=== PATIENT | female | born 1935 | race Caucasian/White ===

== ENCOUNTER 2017-12-17 03:11 | Inpatient (IN) | payer MEDICARE, OTHER ==
[~2017-12-17] VITALS: Ht 139.7 cm; Wt 47.2 kg
[~2017-12-17 03:11] MED LIST: ASPIRIN EC325 M1 PO; BENTYL 10 MG CA10 MG; CALCIUM 500 +1 EAC5 PO; CENTRUM ADULTS1 EACH PO; ERYTHROCIN STE250 MG; HYDROCODONE-APA1 TA1 PO; LASIX 40 MG TAB40 M2 PO; LISINOPRIL10 MG; SYNTHROID25 MCG; VICODIN 5-5001 EACH PO
[2017-12-17 03:13] VITALS: BP 155/41
[2017-12-17 04:22] LABS: HEMATOCRIT 33.9 % (37.0-47.0); HEMOGLOBIN 11.3 gm/dL (12.0-15.0); MCH 31.3 pg (26.0-34.0); MCHC 33.3 g/dL (28.0-37.0); MCV 94.1 fL (80.0-100.0); MPV 8.6 fl. (7.2-11.1); NUCLEATED RBCS 0 /100WBC; PLATELET COUNT* 203 thou/uL (150-400); RDW-CV 13.8 % (10.5-14.5); WBC 12.6 thou/uL (4.0-11.0)
[2017-12-17 04:32] LABS: CALCIUM 8.6 mg/dL (8.5-10.1); CREATININE 0.7 mg/dL (0.6-1.3)
[2017-12-17 04:36] LABS: ALBUMIN 2.8 g/dL (3.4-5.0); TOTAL BILIRUBIN 0.2 mg/dL (<0.1-1.0); TOTAL PROTEIN 5.7 g/dL (6.4-8.2)
[2017-12-17 04:37] LABS: POTASSIUM 2.3 mmol/L (3.5-5.1)
[2017-12-17 05:36] LABS: URINE BILIRUBIN NEGATIVE (Negative); URINE BLOOD TRACE (Negative); URINE CLARITY SL CLOUDY; URINE COLOR YELLOW; URINE GLUCOSE-RANDOM NEGATIVE (Negative); URINE KETONES NEGATIVE (Negative); URINE LEUKOCYTES-REFLEX NEGATIVE (Negative); URINE NITRITE-REFLEX NEGATIVE (Negative); URINE PROTEIN 2+ (Negative); URINE SPECIFIC GRAVITY 1.025 (1.005-1.030); URINE UROBILINOGEN 0.2 E.U./dl (0.2-1.0)
[2017-12-17 05:57] VITALS: BP 139/44
[2017-12-17 06:03] LABS: ABSOLUTE LYMPHOCYTES 0.4 thou/uL (0.8-5.3); ABSOLUTE MONOCYTES 0.5 thou/uL (0.0-1.2); ABSOLUTE NEUTROPHILS 11.7 thou/uL (1.6-8.1); PLATELET ESTIMATE ADEQUATE
[2017-12-17 06:15] LABS: BACTERIA-REFLEX >30 Many /HPF (None Seen); SQUAMOUS 4-10 Moderate /LPF (0-3); URINE RBC 3-10 Few /HPF (0-2); URINE WBC-REFLEX 6-15 Few /HPF (0-5)
[2017-12-17 06:16] LABS: CASTS None Seen /LPF (None Seen); CRYSTALS None Seen /LPF (None Seen); MUCUS None Seen strn/LPF (None Seen)
[2017-12-17 07:54] VITALS: BP 140/49
--- NOTE | 2017-12-17 08:33 | NUR ---
VSS, ASSUMED CARE IN THE AM, ASSESSMENT PERFORMED AND CHARTED FALL PRECAUTIONS IN PLACE AND CALL LIGHT IN REACH, PT IS UP WITH ONE AND WALKER STATES PAIN IN LOWER BACK, IS TRACING SR C BB ON THE MONITOR, A&O4, ON RA AND HER GOAL IS TO IMPROVE K LABS, WILL FOLLOW WITH PLAN OF CARE.
[2017-12-17 12:00] VITALS: BP 134/48
--- NOTE | 2017-12-17 13:08 | EKG ---
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1935 Requested By: Adrián Paredes Order Number: [id number] MD: [place] Edmondson Measurements Intervals [place] Rate: 79 P: 119 CA: 261 QRS: -60 QRSD: 173 T: 117 QT: 429 QTc: 492 Interpretive Statements Sinus rhythm Prolonged CA interval Consider left atrial enlargement Left bundle branch block Compared to ECG 09/30/2008 18:18:55 Left bundle-branch block now present Electronically Signed On 12-17-2017 13:08:12 DISH CARRIER by [place] Edmondson [email or web address] <ELECTRONICALLY SIGNED> By: [place] Edmondson MD, FAC 12/17/17 1308 0321 0321 [place] Edmondson MD, [facility] /EPI
[2017-12-17 14:00] VITALS: BP 131/47
--- NOTE | 2017-12-17 14:06 | 2DMMODE ---
[place] [address] 2 D/M-MODE ECHOCARDIOGRAM Name: YONATHAN MENDEZ Room: [address] ADM IN [facility]#: [id number] Admission: 12/17/17 Attend Phys: Adrián Paredes Discharge: Date of : 33 Date of Service: 12/17/17 1406 Report #: [id number] THIS REPORT FOR: //name// APPROVED REPORT Study performed: 12/17/2017 10:53:10 EXAM: Comprehensive 2D, Doppler, and color-flow Echocardiogram Patient Location: In-Patient Room #: 220 Status: routine BSA: 1.28 HR: 75 bpm BP: 140/49 mmHg Rhythm: NSR Other Information Study Quality: Good Indications Arrhythmia Syncope 2D Dimensions LVEF(%): 32.42 (>50%) IVSd: 11.10 (7-11mm) LVOT Diam: 19.37 (18-24mm) LVDd: 49.87 mm PWd: 9.98 (7-11mm) Ascending Ao: 33.52 (22-36mm) LVDs: 42.19 (25-40mm) Aortic Root: 31.30 mm Villela's LVEF: 32.42 % Volumes Left Atrial Volume (Systole) LA ESV Index: 57.10 mL/m2 Aortic Valve AoV Peak Ernesto.: 1.83 m/s AO Peak Gr.: 13.40 mmHg LVOT Max P.04 mmHg AO Mean Gr.: 6.67 mmHg LVOT Mean P.02 mmHg LVOT Max V: 1.12 m/s AO V2 VTI: 33.98 cm LVOT Mean V: 0.63 m/s RICHA (VTI): 1.85 cm2 LVOT V1 VTI: 21.30 cm AI Taliaferro: 2.52 m/s2 AI PHT: 315.78 [place] [address] 2 D/M-MODE ECHOCARDIOGRAM Name: YONATHAN MENDEZ Room: [address] IN .R.#: [id number] Admission: 12/17/17 Attend Phys: Adrián Paredes Discharge: Date of : 33 Date of Service: 12/17/17 1406 Report #: [id number] Mitral Valve E/A Ratio: 0.74 MV Decel. Time: 141.49 ms MV E Max Ernesto.: 1.01 m/s MV PHT: 41.03 ms MVA (PHT): 5.36 cm2 TDI E/Lateral E': 11.22 Lateral E' Ernesto.: 0.09 m/s Pulmonary Valve PV Peak Ernesto.: 0.86 m/s PV Peak Gr.: 2.99 mmHg Tricuspid Valve TR Peak Gr.: 22.03 mmHg RVSP: 27.00 mmHg Left Ventricle The left ventricle is normal size. There is global hypokinesis of the left ventricle. There is normal left ventricular wall thickness. Left ventricular systolic function is moderately decreased. LVEF is 25-30%. Grade I - abnormal relaxation pattern. Right Ventricle The right ventricle is normal size. The right ventricular systolic function is normal. Atria Left atrium is severely dilated. The right atrium size is normal. Aortic Valve Mild aortic valve sclerosis. Moderate aortic regurgitation. Mild aortic stenosis. Mitral Valve The mitral valve is normal in structure. Trace mitral regurgitation. No evidence of mitral valve stenosis. Tricuspid Valve The tricuspid valve is normal in structure. Trace tricuspid regurgitation. The RVSP is ____27___ mmHg. Pulmonic Valve The pulmonary valve is normal in structure. [place] [address] 2 D/M-MODE ECHOCARDIOGRAM Name: YONATHAN MENDEZ Room: [address] IN [facility]#: [id number] Admission: 12/17/17 Attend Phys: Adrián Paredes Discharge: Date of : 34 Date of Service: 12/17/17 1406 Report #: [id number] regurgitation. Great Vessels The aortic root is normal in size. IVC is normal in size and collapses with >50% inspiration Pericardium There is no pericardial effusion. <Conclusion> LVEF is 25-30%. Left atrium is severely dilated. Moderate aortic regurgitation. Mild aortic valve sclerosis. <ELECTRONICALLY SIGNED> By: [place] Edmondson MD, FACC 12/17/171405 05 05 [place] Edmondson MD, FACC /INF
--- NOTE | 2017-12-17 14:20 | NUR ---
CM ASSESSMENT: Pt is A&O. Resides at home. Independent with ADLs. Has a walker at home that she can use if needed. Supportive family that is invovled in POC. Hx of HH. No Hx of SNF. Goal is to return home once medically stable for dc. Anticipate dc tomorrow. Following
[2017-12-17 19:50] VITALS: BP 132/44
--- NOTE | 2017-12-17 20:00 | NUR ---
VSS, PT LABS IMPROVED, NO OTHER STATUS CHANGE , HOURLY ROUNDS COMPLETED.
[2017-12-18] VITALS (8 sets, daily range): BP systolic 133–172; BP diastolic 43–76
--- NOTE | 2017-12-18 05:23 | NUR ---
A&O X4 CALM COOPERITVE. PT IS X1 ASSIST. 1ST BBB SR ON THE MONITOR. FLUIDS STOPED AT 0200. PT ON RA. DENIES PAIN. VITALS WNL. FALL PRECAUTIONS IN PLACE. HOURLY ROUNDING FOR SAFETY.
[2017-12-18 05:33] LABS: HEMATOCRIT 30.6 % (37.0-47.0); HEMOGLOBIN 10.2 gm/dL (12.0-15.0); MCH 31.7 pg (26.0-34.0); MCHC 33.4 g/dL (28.0-37.0); MCV 94.9 fL (80.0-100.0); MPV 8.7 fl. (7.2-11.1); RBC 3.22 mil/uL (4.20-5.00); RDW-CV 13.9 % (10.5-14.5)
[2017-12-18 05:50] LABS: CREATININE 0.7 mg/dL (0.6-1.3); MAGNESIUM 1.4 mg/dL (1.8-2.4); POTASSIUM 3.5 mmol/L (3.5-5.1)
--- NOTE | 2017-12-18 12:07 | NUR ---
VSS, AUUMED CARE IN THE AM, ASSESSMENT PERFROMED AND CHARTED, FALL PRECAUTIONS IN PLACE AND CALL LIGHT IN REACH, PT IS TRACING SR ON THE MONITOR AND UP WITH STAND BY ASSIST, PT IS ON RA AND HAS PAIN IN HER RIGHT ARM, 4 OUT OF 0-10, PT IS A&O4 AND HER GOAL IS TO WALK IN [place] AND SIT UP IN CHAIR.
--- NOTE | 2017-12-18 18:48 | NUR ---
VSS, PT IS PROGRESSING TOWARDS GOAL, PT IS UP WITH STAND BY ASSIST, ON RA AND TRACING SR ON THE MONITOR, DENIES ANY PAIN AT THIS TIME, IS TO BE NPO AT 2400 AND FOR STRSS TEST, NO OTHER STATUS CHANGE AT THIS TIME, HOURLY ROUNDS COMPLETED.
[2017-12-19] VITALS (8 sets, daily range): BP systolic 137–171; BP diastolic 48–87
[2017-12-19 05:58] LABS: CALCIUM 8.9 mg/dL (8.5-10.1); CREATININE 0.6 mg/dL (0.6-1.3); POTASSIUM 3.6 mmol/L (3.5-5.1)
--- NOTE | 2017-12-19 06:54 | NUR ---
A&O X4 CALM COOPERITVE. STANDBY/STANDBY ASSIST. 1ST BBB SR ON THE MONITOR. RA. VITALS WNL. FALL PRECAUTIONS IN PLACE. HOURLY ROUNDING FOR SAFETY.
--- NOTE | 2017-12-19 09:00 | NUR ---
VSS, ASSUMED CARE IN THE AM, ASSESSMENT PERFORMED AND CHARETED, FALL PRECAUTIONS IN PLACE AND CALL LIGHT IN REACH, PT IS TRACING SR ON THE MONITOR IS NPO FOR STRESS TEST, UP WITH STAND BY AND ON RA, DENIES ANY PAIN AND HER GOAL IS TO COMPLETE STRESS TEST AND SIT UP IN CHAIR, WILL FOLLOW WITH PLAN OF CARE.
[2017-12-19] MEDS ORDERED: COREG6.25 MG PO (16:03)
[2017-12-19] MEDS ORDERED: ALDACTONE25 MG PO (16:04)
--- NOTE | 2017-12-19 16:39 | CARDNUC ---
[place] [address] CARDIAC NUCLEAR IMAGING REPORT Name: YONATHAN MENDEZ Room: [address] IN [facility]#: [id number] Admission: 12/17/17 Attend Phys: Adrián Paredes Discharge: Date of : 33 Date of Service: 12/19/17 1639 Report #: [id number] THIS REPORT FOR: //name// APPROVED REPORT Exam: Nuclear Stress Test Indication: near syncope Patient Location: In-Patient Room #: 220 Stress Tech: Fiordaliza Tubbs Stress Nurse: ZACK Mixon Tech:TORI Castor Ht: 4 ft 7 in Wt: 95 lbs BSA: 1.28 m2 BMI: 22.0 Medical History Medical History: hyperlipidemia,hypertension,pvd Medications: carvedilol,kcl, lasix, lisinopril, spironolactone Allergies: ertapenem Cardiac Risk Factors: age, hyperlipidemia,hypertension, pvd, smoker Exercise History: Sedentary Meds Held (24 hrs): carvedilol NM EXAM: Myocardial Perfusion REST/STRESS Imaging Protocol: Rest Tc-99m/Stress Tc-99m 1 day Resting Data Rest SPECT myocardial perfusion imaging was performed in supine position 45 minutes following the intravenous injection of 11.9 mCi of Tc-99m Sestamibi. Time of rest injection: 1145 Date: 12/19/2017 The images were gated to evaluate regional wall motion and calculate left ventricular ejection fraction. Administration Route: IV Administration Site: Left AC Pharmacologic Stress Pharmacologic stress test was performed by injecting Regadenoson 0.4 mg IV push followed by the intravenous injection of 32.6 mCi of Tc-99m Sestamibi. Time of stress injection: 1345 Date: 12/19/2017 Administration Route: [place] [address] CARDIAC NUCLEAR IMAGING REPORT Name: YONATHAN MENDEZ Room: [address] IN ..#: [id number] Admission: 12/17/17 Attend Phys: Adrián Paredes Discharge: Date of : 34 Date of Service: 12/19/17 1639 Report #: [id number] Administration Site: Left AC Gated Stress SPECT was performed 45 minutes after stress injection. The images were gated to evaluate regional wall motion and calculate left ventricular ejection fraction. Stress only was performed in the Supine position. Study Quality Study: Fair Artifact: Mild Increased GI uptake Study Data At rest, the left ventricular ejection fraction was 25%.. Post stress, the left ventricular ejection was 28%.. SSS: 15 SRS: 11 SDS: 4 TID = 0.95. Perfusion There are moderate sized fixed apical and inferior defects compatible with prior ID. Only some reversibility inferior. LV is dilated. Wall Motion global hypokinesis Nuclear Conclusion ECG Findings: non-diagnostic Clinical Findings: negative for ischemia Nuclear Findings: positive for ischemia Exercise Capacity: not assessed Left Ventricular Function: abnormal Risk Study: high Evidence of prior ID and LV dysfunction. Interpreted by: MM Electronically Approved: MM Stress Test Details Stress Test: Pharmacologic stress testing performed using 0.4 mg of regadenoson per 5 mL given IV over 10 seconds. Reason for pharmacologic stress test: physical limitation. HR Resting HR: 83 bpm Max Heart Rate (APMHR): 137 bpm Max HR Achieved: 98 bpm Target HR (85% APMHR): 116 [place] [address] CARDIAC NUCLEAR IMAGING REPORT Name: YONATHAN MENDEZ Room: [address]#: [id number] Admission: 12/17/17 Attend Phys: Adrián Paredes Discharge: Date of : 33 Date of Service: 12/19/17 1639 Report #: [id number] % of APMHR: 71 Recovery HR: 102 bpm HR response to stress: Normal HR response to stress BP Resting BP: 155/80 mmHg Max BP: 152/70 mmHg BP response to stress: Normal blood pressure response to stress. ECG Resting ECG: Sinus Rhythm, LBBB Stress ECG: Clear Recovery ECG: Sinus Rhythm Recovery ST Change: None Clinical Reason for Termination: Completed protocol Stress Symptoms: Nausea Exercise duration: 0 min sec Exercise capacity: 1 METs Functional Aerobic Impairment 72% Nurse Comments pt has heart murmer, okay to do sitting dolly per Dr. Edmondson. Pt became very nauseated and crawford after injection of lexiscan. 2 min after injection of isotope, aminophylline 50 mg was injected. pt reported feeling better and was able to dring caffeine and eat snack Stress ECG Conclusion nondiagnostic <Conclusion> nondiagnostic <ELECTRONICALLY SIGNED> By: Messi Landin MD, FACC 12/19/17 1639 1639 1639 Messi Landin MD, FACC /INF
--- NOTE | 2017-12-19 17:16 | NUR ---
VSS, PT IS PROGRESSING TOWARDS GOAL, PT COMPLETED STRESS TEST, IS ON RA AND UP WITH STAND BY AND TRACING SR ON THE MONITOR, HOURLY ROUNDS COMPLETED, WILL FOLLOW WITH PLAN OF CARE. PT GOAL IS TO D/C TO HOME.
[2017-12-20 00:31] VITALS: BP 141/52
[2017-12-20 04:28] VITALS: BP 142/42
--- NOTE | 2017-12-20 04:54 | NUR ---
ASSUMED CARE OF PATIENT AT 1900 THE PATIENT REMAINS SR C 1ST DEG AV AND BBB ON THE MONITOR O2 SAT MAINTAINED ON RA CONTINUES TO BE UP WITH BATHROOM PRIVALGES DAUGHTER AT BEDSIDE DURING THE NIGHT THE ROUTINE REGIMEN CONTINUES TO BE EFFECTIVE FOR SX MANAGEMENT SAFETY INTERVENTIONS CONTINUE BED LOWERED WHEELS LOCKED CALL LIGHT IN REACH SIDE RAILS UP REPORT TO BE GIVEN TO ONCOMING [facility]
[2017-12-20 08:00] VITALS: BP 139/63
[2017-12-20] MEDS ORDERED: SYNTHROID25 MCG PO (08:09)
[2017-12-20] MEDS ORDERED: LISINOPRIL10 MG PO (08:10)
[2017-12-20] MEDS ORDERED: COREG6.25 MG PO (08:10)
[2017-12-20] MEDS ORDERED: ALDACTONE25 MG PO (08:10)
--- NOTE | 2017-12-20 10:21 | NUR ---
ASSUMED PT CARE AT 0730, FULL ASSESMENT DONE CHARTED. PT A/O X4, UP TO [facility] FOR BREAKFAST, HOPING TO GO HOME TODAY. PTS DAUGHTER AT BEDSIDE. VSS, SR/BBB/1ST AVB ON THE MONITOR. FALL PRECATUIONS IN PLACE, PT USES CALL LIGTH APPROPRIATLY. WILL CONTINUE TO MONITOR.
[2017-12-20 12:46] VITALS: BP 110/56
== END 2017-12-20 13:45 | disposition home or self-care (01) | DRG 306 ==
LOC: M.ERS 03:11 → M.TBA-ER 05:13 → M.2W 05:13
PROVIDERS: Internal Medicine; Nurse Practitioner Family; Personal Emergency Response Attendant; ADMIT Internal Medicine
PROC: B24BZZ4 Ultrasonography of Heart with Aorta, Transesophageal (ICD-10-PCS; principal; 2017-12-17)
DX: I35.1 Nonrheumatic aortic (valve) insufficiency (principal); E43 Unspecified severe protein-calorie malnutrition; I50.22 Chronic systolic (congestive) heart failure; I42.9 Cardiomyopathy, unspecified; M81.0 Age-related osteoporosis without current pathological fracture; I73.9 Peripheral vascular disease, unspecified; E03.9 Hypothyroidism, unspecified; K52.9 Noninfective gastroenteritis and colitis, unspecified; M47.9 Spondylosis, unspecified; I65.29 Occlusion and stenosis of unspecified carotid artery; I11.0 Hypertensive heart disease with heart failure; E78.5 Hyperlipidemia, unspecified; E87.6 Hypokalemia; F17.210 Nicotine dependence, cigarettes, uncomplicated; Z98.1 Arthrodesis status; Z95.820 Peripheral vascular angioplasty status with implants and grafts; Z79.82 Long term (current) use of aspirin; Z79.899 Other long term (current) drug therapy; Z88.8 Allergy status to other drugs, medicaments and biological substances

== ENCOUNTER 2018-01-27 20:17 | Inpatient (IN) | payer MEDICARE, OTHER ==
[~2018-01-27] VITALS: Ht 139.7 cm; Wt 39.9 kg
--- NOTE | ~2018-01-27 | PROC ---
[address] [address] PROCEDURE REPORT Name: YONATHAN MENDEZ Room: [address] ADM IN M.R.#: [id number] Admission: 01/27/18 Attend Phys: Omer Amaro Discharge: Date of : 34 Report #: [id number] THIS REPORT FOR: //name// For GI report, please see the Provation report in Perceptive 7 content. By: 0644Medical Records Staff ELIE /RADHA
[~2018-01-27 20:17] MED LIST changes: +ALDACTONE25 MG PO; +COREG6.25 MG PO; +LISINOPRIL10 MG PO; +SYNTHROID25 MCG PO
[2018-01-27 20:28] VITALS: BP 120/51
[2018-01-27 21:03] LABS: ABSOLUTE BASOPHILS 0.1 thou/uL (0.0-0.2); ABSOLUTE EOSINOPHILS 0.1 thou/uL (0.0-0.7); ABSOLUTE LYMPHOCYTES 1.7 thou/uL (0.8-5.3); ABSOLUTE MONOCYTES 0.7 thou/uL (0.0-1.2); ABSOLUTE NEUTROPHILS 8.1 thou/uL (1.6-8.1); BASOPHILS 0.8 %; HEMATOCRIT 40.3 % (37.0-47.0); HEMOGLOBIN 13.4 gm/dL (12.0-15.0); LYMPHOCYTES 15.8 %; MCH 31.7 pg (26.0-34.0); MCHC 33.2 g/dL (28.0-37.0); MCV 95.6 fL (80.0-100.0); MONOCYTES 6.3 %; MPV 8.3 fl. (7.2-11.1); NUCLEATED RBCS 0 /100WBC; PLATELET COUNT* 231 thou/uL (150-400); POLYS 76.1 %; RBC 4.22 mil/uL (4.20-5.00); RDW-CV 15.7 % (10.5-14.5); WBC 10.6 thou/uL (4.0-11.0)
[2018-01-27] MEDS ORDERED: LISINOPRIL20 MG PO (21:05)
[2018-01-27 21:11] LABS: CALCIUM 9.2 mg/dL (8.5-10.1); CREATININE 1.5 mg/dL (0.6-1.3); POTASSIUM 4.9 mmol/L (3.5-5.1)
[2018-01-27 21:15] LABS: ALBUMIN 3.6 g/dL (3.4-5.0); TOTAL BILIRUBIN 0.3 mg/dL (<0.1-1.0); TOTAL PROTEIN 6.6 g/dL (6.4-8.2)
[2018-01-27 21:30] LABS: URINE BILIRUBIN NEGATIVE (Negative); URINE BLOOD 1+ (Negative); URINE CLARITY CLEAR; URINE COLOR YELLOW; URINE GLUCOSE-RANDOM NEGATIVE (Negative); URINE KETONES NEGATIVE (Negative); URINE LEUKOCYTES-REFLEX NEGATIVE (Negative); URINE NITRITE-REFLEX NEGATIVE (Negative); URINE PROTEIN NEGATIVE (Negative); URINE SPECIFIC GRAVITY 1.025 (1.005-1.030); URINE UROBILINOGEN 0.2 E.U./dl (0.2-1.0)
[2018-01-27 21:41] LABS: BACTERIA-REFLEX None Seen /HPF (None Seen); CASTS None Seen /LPF (None Seen); CRYSTALS None Seen /LPF (None Seen); MUCUS 0-3 Light strn/LPF (None Seen); SQUAMOUS 0-3 Few /LPF (0-3); URINE RBC 0-2 Rare /HPF (0-2); URINE WBC-REFLEX None Seen /HPF (0-5)
[2018-01-28 00:08] VITALS: BP 124/48
[2018-01-28 00:16] VITALS: BP 132/54
--- NOTE | 2018-01-28 01:24 | NUR ---
ALERT AND ORIENTED X 4 FEMALE PATIENT TO ROOM 113 BY CART FROM ER ACCOMPANIED BY DAUGHTER ADRYAN IN STABLE CONDITION. ADMISSION ROUTINES IN PROGRESS. NPO STATUS EDUCATION. MOUTH SWABS AND LIP BALM PROVIDED. CONTINUE TO MONITOR.
[2018-01-28] MEDS ORDERED: ANACIN 400-321 EACH PO (01:37)
[2018-01-28] MEDS ORDERED: LASIX 20 MG TAB20 MG PO (01:39)
[2018-01-28] MEDS ORDERED: PRESERVISION A1 EAC2 PO (01:40)
[2018-01-28] MEDS ORDERED: B12 INJECTION (01:41)
--- NOTE | 2018-01-28 04:57 | NUR ---
PATIENT HAS REMAINED ALERT AND ORIENTED X 4 THROUGHOUT THE NIGHT AND RESTING QUIETLY ON HOURLY ROUNDS. HAS DENIED PAIN OR NAUSEA. IVF'S AND NPO PER ORDERS. AMBULATED TO BR WITH CGA. CONTINUE TO MONITOR.
--- NOTE | 2018-01-28 08:00 | NUR ---
PER PATIENT MAY RESUME HOME MEDS ONCE CONSULTS HAVE CLEARED PATIENT TO HAVE CLEAR LIQUIDS.
[2018-01-28 08:38] VITALS: BP 124/64
[2018-01-28 16:39] VITALS: BP 129/48
--- NOTE | 2018-01-28 17:14 | NUR ---
PATIENT REMAINS ALERT AND ORIENTED. DENIES PAIN. IVF INFUSING ORDERED. REMAINS NPO. JUST SPOKE WITH DR. CARMICHAEL AND - PATIENT MAY HAVE MEDS WITH SIPS OF H20. AMBULATES WITH STANDBY ASSIST. ORAL SWABS PROVIDED. FAMILY AT BEDSIDE. WILL CONTINUE TO MONITOR.
--- NOTE | 2018-01-28 17:56 | NUR ---
PT.WAS ALERT AND ORIENTED. STATED SHE LIVES ALONE AND IS INDEPENDENT.HAS A WALKER BUT DOESN'T HAVE TO USE. PLANS TO RETURN HOME AT DISCHARGE. FAMILY IS SUPPORTIVE. NO RECENT HX OF HH OR SNF. CM WILL FOLLOW.
--- NOTE | 2018-01-28 17:56 | EKG ---
[place] [address] ELECTROCARDIOGRAM REPORT Name: YONATHAN MENDEZ Room: [address] ADM IN M.R.#: [id number] Admission: 01/27/18 Attend Phys: Omer Amaro Discharge: Date of : 34 Report #: [id number] THIS REPORT FOR: //name// 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: [facility] : 1935 Requested By: Geovanna Love Order Number: [id number] MD: Ector Brown Measurements Intervals [place] Rate: 65 P: 0 MO: 256 QRS: -64 QRSD: 150 T: 114 QT: 462 QTc: 481 Interpretive Statements Sinus rhythm Prolonged [place] interval Probable left atrial enlargement Left bundle branch block Compared to ECG 12/17/2017 03:21:54 No significant changes Electronically Signed On 01-28-2018 17:56:00 CDT by Ector Brown [email or web address] <ELECTRONICALLY SIGNED> By: Ector Brown MD, [facility] 01/28/18 1756 51 51 Ector Brown MD, [facility] /EPI
[2018-01-28 18:52] LABS: ALBUMIN 2.8 g/dL (3.4-5.0); CALCIUM 7.6 mg/dL (8.5-10.1); CREATININE 0.9 mg/dL (0.6-1.3); POTASSIUM 4.9 mmol/L (3.5-5.1); TOTAL BILIRUBIN 0.4 mg/dL (<0.1-1.0); TOTAL PROTEIN 5.5 g/dL (6.4-8.2)
[2018-01-28 19:50] VITALS: BP 142/46
[2018-01-29 00:59] VITALS: BP 142/46
[2018-01-29 04:31] LABS: ABSOLUTE BASOPHILS 0.1 thou/uL (0.0-0.2); ABSOLUTE EOSINOPHILS 0.2 thou/uL (0.0-0.7); ABSOLUTE LYMPHOCYTES 2.4 thou/uL (0.8-5.3); ABSOLUTE MONOCYTES 0.5 thou/uL (0.0-1.2); ABSOLUTE NEUTROPHILS 3.9 thou/uL (1.6-8.1); BASOPHILS 0.9 %; EOSINOPHILS 2.4 %; HEMATOCRIT 31.6 % (37.0-47.0); LYMPHOCYTES 33.7 %; MCH 31.6 pg (26.0-34.0); MCV 95.7 fL (80.0-100.0); MONOCYTES 7.5 %; MPV 8.3 fl. (7.2-11.1); NUCLEATED RBCS 0 /100WBC; PLATELET COUNT* 188 thou/uL (150-400); POLYS 55.5 %; RDW-CV 15.6 % (10.5-14.5); WBC 7.1 thou/uL (4.0-11.0)
[2018-01-29 04:36] LABS: HEMOGLOBIN 10.4 gm/dL (12.0-15.0)
--- NOTE | 2018-01-29 05:15 | NUR ---
PATIENT HAS REMAINED ALERT AND ORIENTED X 4 THROUGHOUT THE SHIFT AND RESTING QUIETLY ON HOURLY ROUNDS. HAS DENIED PAIN OR NAUSEA. UP TO BR TO VOID. NO BM'S BUT STATED HAS PASSED GAS. NPO FOR AM ABDOMINAL XRAYS AND THEN EGD THIS AFTERNOON. VITAL SIGNS STABLE. CONTINUE TO MONITOR.
[2018-01-29 09:11] VITALS: BP 127/40; BP 142/46
[2018-01-29 13:27] VITALS: BP 153/52
[2018-01-29 15:19] VITALS: BP 132/50
--- NOTE | 2018-01-29 18:51 | NUR ---
ALERT AND ORIENTED X4. UP WITH STAND BY ASSIST IN ROOM. IV IS PATENT AND SALINE LOCKED. PAIN BEING MANAGED WITH PO TYLENOL. DENIES NAUSEA. TOLERATING DIET. HAVING LOOSE STOOLS THIS EVENING. VSS ON ROOM AIR. HOURLY ROUNDS HAVE BEEN MAINTAINED THROUGHOUT SHIFT. CALL LIGHT IS WITHIN REACH. NURSING WILL CONTINUE TO MONITOR.
[2018-01-30 04:19] VITALS: BP 129/61
--- NOTE | 2018-01-30 04:19 | NUR ---
PATIENT RESTING QUIETLY THIS AM ON HOURLY ROUNDS. UP WITH STAND BY ASSIST TO BATHROOM. TYLENOL GIVEN FOR PAIN X1 WITH GOOD RESULTS REPORTED. VITALS STABLE ON ROOM AIR. WILL CONTINUE TO MONITOR.
[2018-01-30 04:31] LABS: HEMATOCRIT 31.9 % (37.0-47.0); HEMOGLOBIN 10.5 gm/dL (12.0-15.0); MCH 31.8 pg (26.0-34.0); MCHC 32.9 g/dL (28.0-37.0); MCV 96.7 fL (80.0-100.0); RBC 3.3 mil/uL (4.20-5.00); RDW-CV 15.6 % (10.5-14.5); WBC 6.7 thou/uL (4.0-11.0)
[2018-01-30 04:59] LABS: CALCIUM 7.7 mg/dL (8.5-10.1); CREATININE 0.8 mg/dL (0.6-1.3); MAGNESIUM 1.9 mg/dL (1.8-2.4); PHOSPHORUS* 2.2 mg/dL (2.5-4.9); POTASSIUM 4.5 mmol/L (3.5-5.1)
[2018-01-30 08:36] VITALS: BP 141/48
--- NOTE | 2018-01-30 10:08 | CON ---
[facility] [address] [place] [address] CONSULTATION Name: YONATHAN MENDEZ Room: [address] IN M.R.#: [id number] Admission: 01/27/18 Attend Phys: Omer Amaro Discharge: Date of : 33 Report #: [id number] THIS REPORT FOR: //name// CC: Saw Singleton DO DATE OF SERVICE: 01/28/2018 REFERRING PHYSICIAN: Adrián Paredes DO REASON FOR CONSULTATION: Epigastric pain associated with nausea and vomiting. IMPRESSION: 1. Epigastric pain associated with nausea, vomiting, weight loss with history of complicated peptic ulcer disease -- suspect anastomotic ulcer plus or minus an anastomotic stricture related to the same. 2. Chronic low back pain requiring chronic pain medication in the form of Anacin 325 mg 2 tablets twice daily. 3. History of previous colonic perforation requiring previous ileocecal and sigmoid resection with temporary ileostomy and colostomy followed by takedown of the same. 4. Postprandial diarrhea compatible with dumping syndrome. 5. Weight loss secondary to #1. 6. Chronic low back pain with the patient having undergone multiple interventions for the same. RECOMMENDATIONS: 1. At the present time, I suspect the patient has an anastomotic ulcer secondary to her chronic nonsteroidal use in the form of Anacin. She takes this for chronic pain and will likely continue with the same. 2. We will proceed with upper endoscopy tomorrow and make further recommendations as well. 3. It should be noted that the patient previously has had issues with small bowel bacterial overgrowth for which she has been treated for the same and has also had some problems with probable delayed gastric emptying for which she has been on erythromycin. If necessary, she may need to have a gastric emptying scan done as well on Friday, January 30. 4. Further recommendation will be made by my partner, Dr. Machado, during the rest of her hospital stay. I have discussed the plans with the patient as well as her daughter and they are agreeable to the same. HISTORY OF PRESENT ILLNESS: The patient is a very pleasant 82-year-old white female who has had a multitude of abdominal surgery. She was admitted to the hospital because of complaints of upper and [place] [address] CONSULTATION Name: YONATHAN MENDEZ Room: [address] IN [facility].#: [id number] Admission: 01/27/18 Attend Phys: Omer Amaro Discharge: Date of : 34 Report #: [id number] nausea, vomiting. She denies any complaints of any dysphagia, odynophagia, but does have problems with postprandial nausea as well as diarrhea. She started throwing up and could not keep things down and has had some problem with early satiety and weight loss. She probably lost about 10 pounds with a normal weight about between 100 and 104 and she is currently down to 89 pounds. She denies any hematemesis, melena or hematochezia. She has had problems with postprandial diarrhea and can go up to 6-8 times a day in the past for the same. She has undergone endoscopic studies of her upper and lower GI tract as well by our group and the findings will be noted down below. It should be noted that the patient had history of complicated peptic ulcer disease and underwent surgical intervention close to 40-50 years ago with removal of two-thirds of her stomach and reanastomosis. She also had a problem with colonic rupture back in 1996, which she had to have part of her right colon and part of her sigmoid colon removed with a temporary ileostomy and colostomy at the same time followed by takedown of the same. This was done by Dr. Yang. She has undergone endoscopic studies of her upper and lower GI tract, the last of which were performed in 2008 and in 2007 respectively. She underwent upper endoscopy reported back in 2008, which revealed an anastomotic ulcer, which bled and required endoscopic therapy. She underwent a full colonoscopy by one of our former associates, Dr. Solis in November 2007, which revealed post-surgical changes compatible with sigmoid resection as well as partial right colon resection and primary anastomosis in both areas. She also had extensive diverticular disease. Her daughter does not think she had any endoscopic studies since that time. She is admitted to the hospital for further evaluation and treatment. ALLERGIES: None. MEDICATIONS: Include levothyroxine, furosemide, Centrum, multivitamin, lisinopril, calcium with vitamin D preservations, spironolactone, carvedilol, B12 injection once a month, Anacin 325 mg 2 tablets twice daily. PAST MEDICAL AND SURGICAL HISTORY: Significant for underlying hypertension. She has history of congestive heart failure, hypothyroidism, B12 deficiency secondary to previous surgical interventions. She has had previous partial gastric resection and anastomosis as well as previous partial colon resections in the right and left colon with reanastomosis. She has problem with chronic deep spinal stenosis and has undergone multiple interventions for the same. She has also had problem with peripheral vascular disease and has undergone popliteal angioplasty and stent placements in the past, some aortic insufficiency as well. SOCIAL HISTORY: The patient is recently . She smokes 1/4 pack per day, [place] [address] CONSULTATION Name: YONATHAN MENDEZ Room: [address] IN [facility]#: [id number] Admission: 01/27/18 Attend Phys: Omer Amaro Discharge: Date of : 34 Report #: [id number] FAMILY HISTORY: Negative for GI malignancies, colon polyps, colon cancer or inflammatory bowel disease. PHYSICAL EXAMINATION: GENERAL: A pleasant 82-year-old white female who is awake and alert. CARDIOPULMONARY: Revealed a regular rate and rhythm. LUNGS: Clear. ABDOMEN: Soft, not particularly tender. No rebound or guarding noted. LABORATORY TEST: From the revealed a white count of 10.6, hemoglobin 13.4, platelet count 231,000, MCV is 95.6, RDW 15.7. Her differential is normal. Her sodium 142, potassium 4.9, chloride 108, bicarbonate is 25, her BUN is 38, creatinine 1.5, her GFR 33. Total bilirubin 0.3, alkaline phosphatase 69, AST is 25, ALT is 18. CT scan of the abdomen and pelvis was reviewed and revealed postsurgical changes with mild prominence of the small bowel, but does not suggest any obvious obstruction. She had postsurgical changes as well in the colon that were mentioned as noted above. She has had multiple vertebroplasties in the thoracic and lumbar spine. The liver appeared normal, biliary system appeared normal. Gallbladder is visualized, but cannot be completely evaluated. The pancreas is atrophic. DISCUSSION: At the present time, the patient probably has an anastomotic ulcer and/or stricture causing some of her nausea, vomiting. I do not think she has a bowel obstruction and hopefully will not need to have any surgical intervention for the same. At the present time, I will hold off on any endoscopic studies of her lower GI tract at this time unless it is absolutely necessary. I suspect that her hemoglobin will drop down to her baseline around 10 or even lower because of dehydration. Continue with hydration at this point in time ____ on clear liquids and proceed with upper endoscopy tomorrow. <ELECTRONICALLY SIGNED> By: Peter Marx DO 01/30/18 1008 1737 [id number] Marx DO /nt
[2018-01-30] MEDS ORDERED: CARAFATE 1 GM TA1 G1 PO (13:04)
[2018-01-30] MEDS ORDERED: PROTONIX40 M1 PO (13:04)
[2018-01-30 13:11] VITALS: BP 141/48
--- NOTE | 2018-01-30 13:19 | NUR ---
ASSUMED CARE OF PATIENT AFTER REPORT THIS MORNING. PATIENT AWAKE, ALERT, AND ORIENTED APPROPRIATELY. PHYSICAL ASSESSMENT COMPLETED AND CHARTED. NO COMPLAINTS OF PAIN. GIVEN SCHEDULED MEDICATIONS, SEE EMAR FOR DOCUMENTATION. VITAL SIGNS STABLE. OXYGEN SATURATION WITHIN NORMAL LIMITS ON ROOM AIR. PATIENT TRANSFERS AND AMBULATES WITH ASSISTANCE FROM STAFF, USES CALL LIGHT APPROPRIATELY. DAUGHTERS IN ROOM AT BEDSIDE. RECEIVED ORDERS TO DISCHARGE PATIENT FROM PHYSICIAN AND CONSULTING PHYSICIANS. PATIENT AWARE. IV DISCONTINUED. PATIENT DENIES NEEDS. NURSING WILL CONTINUE TO MONITOR UNTIL DISCHARGE.
--- NOTE | 2018-01-30 13:35 | NUR ---
DISCHARGE PAPERWORK COMPLETED AND DISCUSSED WITH PATIENT AND PATIENT'S DAUGHTER, SIGNED BY ALL APPROPRIATE PARTIES, ON PATIENT'S CHART. DISCUSSED PRESCRIPTIONS WITH PATIENT AND DAUGHTER, SCRIPTS GIVEN FOR PANTOPRAZOLE AND CARAFATE. IV DISCONTINUED. PATIENT DISCHARGED AT THIS TIME WITH DAUGHTER.
--- NOTE | 2018-01-30 15:16 | S ---
[place] [address] SURGICAL PATH RPT PROCEDURE Name: KARLENE HERNANDEZALISON Room: [address] IN M.R.#: [id number] Admission: 01/27/18 Date of : 33 Discharge: 01/30/18 Report #: [id number] Path Case #: [id number] PATHOLOGY REPORT COLLECTION DATE: 01/29/2018 RECEIVED DATE: 01/29/2018 SUBMITTING PHYS: Dr. Gabby Machado OTHER PHYS: Dr. Adrián Granados SPECIMEN(S) RECEIVED: A.Anastomatic bx B.Small bowel * * * * * * * * * * * * FINAL DIAGNOSIS: A. Glandular mucosa, "anastomotic biopsy": - Focal ulceration with granulation tissue and with underlying chronic inflammation consistent with an ulcer. - There is no evidence of malignancy. B. Small intestinal mucosa, "small bowel, biopsy": - Chronic inflammation with reactive changes without any definite evidence of dysplasia or malignancy. - There is no evidence of acute cryptitis, granulomas, adenomatous change or malignancy. (SHA:mml; 01/30/2018) PATHOLOGIST: Daljit Rasheed M.D. REPORT ELECTRONICALLY SIGNED BY: Daljit Rasheed M.D. DATE/TIME: 01/30/2018 15:15 * * * * * * * * * * * * GROSS PATHOLOGY: A. Received in formalin labeled "Yonathan David, anastomotic biopsy for anastomotic ulcer," are 2 segments of osei soft tissue measuring 1.0 x 0.2 x 0.2 cm in aggregate dimensions and measuring 0.5 cm each in maximum dimension. The specimen is submitted entirely in cassette A1. B. Received in formalin labeled "Yonathan Hernandez, small bowel ulcers biopsy," are 2 segments of osei soft tissue measuring 0.6 x 0.2 x 0.2 cm in aggregate dimensions and ranging from 0.2 to 0.4 cm in maximum dimension. The specimen is submitted entirely in cassette B1. (TSD; 01/29/2018) CLINICAL HISTORY: [place] [address] SURGICAL PATH RPT PROCEDURE Name: YONATHAN HERNANDEZ Room: [address] IN M.R.#: [id number] Admission: 01/27/18 Date of : 33 Discharge: 01/30/18 Report #: [id number] Path Case #: [id number] INITIAL CPT CODE(S): A; 20820 B; 81323 Professional services performed by [facility] at [facility] [address] [place] [address] Technical services performed by [facility] at [address] [place] [address], [address] [address]. [facility] [place] [address] PHONE: [phone] DIRECTOR: Toy Gilliam M.D. * * * END OF REPORT * * *
== END 2018-01-30 13:37 | disposition home or self-care (01) | DRG 389 ==
LOC: M.ERS 20:17 → M.ORTHSURG 23:16 → M.TBA-ER 23:16 → M.ORTHSURG 01-28 00:07 → M.TBA-ER 01-28 00:13 → M.ORTHSURG 01-28 00:21
PROVIDERS: Internal Medicine; Internal Medicine Gastroenterology; Nurse Practitioner Family; Surgery; ADMIT Internal Medicine
PROC: 0DB98ZX Excision of Duodenum, Via Natural or Artificial Opening Endoscopic, Diagnostic (ICD-10-PCS; principal; 2018-01-29)
PROC: 0DB68ZX Excision of Stomach, Via Natural or Artificial Opening Endoscopic, Diagnostic (ICD-10-PCS; principal; 2018-01-29)
DX: K56.600 Partial intestinal obstruction, unspecified as to cause (principal); N17.9 Acute kidney failure, unspecified; E44.1 Mild protein-calorie malnutrition; I42.9 Cardiomyopathy, unspecified; E86.0 Dehydration; M81.0 Age-related osteoporosis without current pathological fracture; M54.5 Low back pain; I73.9 Peripheral vascular disease, unspecified; E03.9 Hypothyroidism, unspecified; K44.9 Diaphragmatic hernia without obstruction or gangrene; K25.9 Gastric ulcer, unspecified as acute or chronic, without hemorrhage or perforation; K26.9 Duodenal ulcer, unspecified as acute or chronic, without hemorrhage or perforation; G89.29 Other chronic pain; I11.0 Hypertensive heart disease with heart failure; I50.9 Heart failure, unspecified; I25.10 Atherosclerotic heart disease of native coronary artery without angina pectoris; I35.1 Nonrheumatic aortic (valve) insufficiency; F17.210 Nicotine dependence, cigarettes, uncomplicated; Z93.3 Colostomy status; K21.9 Gastro-esophageal reflux disease without esophagitis; Z98.1 Arthrodesis status; Z95.820 Peripheral vascular angioplasty status with implants and grafts; Z87.11 Personal history of peptic ulcer disease; Z68.20 Body mass index [BMI] 20.0-20.9, adult; Z90.3 Acquired absence of stomach [part of]; Z86.73 Personal history of transient ischemic attack (TIA), and cerebral infarction without residual deficits; Z79.82 Long term (current) use of aspirin; Z79.899 Other long term (current) drug therapy; Z88.8 Allergy status to other drugs, medicaments and biological substances

== ENCOUNTER 2018-02-06 14:30 | Observation (INO) | payer MEDICARE, OTHER ==
[~2018-02-06] VITALS: Ht 139.7 cm; Wt 41.3 kg
[~2018-02-06 14:30] MED LIST changes: +ANACIN 400-321 EACH PO; +B12 INJECTION; +CARAFATE 1 GM TA1 G1 PO; +LASIX 20 MG TAB20 MG PO; +LISINOPRIL20 MG PO; +PRESERVISION A1 EAC2 PO; +PROTONIX40 M1 PO
[2018-02-06 14:37] VITALS: BP 112/44
[2018-02-06 16:10] LABS: ABSOLUTE EOSINOPHILS 0.1 thou/uL (0.0-0.7); ABSOLUTE LYMPHOCYTES 1.8 thou/uL (0.8-5.3); ABSOLUTE MONOCYTES 0.7 thou/uL (0.0-1.2); ABSOLUTE NEUTROPHILS 6.7 thou/uL (1.6-8.1); BASOPHILS 0.5 %; EOSINOPHILS 1.1 %; HEMATOCRIT 40.6 % (37.0-47.0); HEMOGLOBIN 13.3 gm/dL (12.0-15.0); MCH 31.6 pg (26.0-34.0); MCHC 32.8 g/dL (28.0-37.0); MCV 96.3 fL (80.0-100.0); MONOCYTES 7.9 %; MPV 8.2 fl. (7.2-11.1); NUCLEATED RBCS 0 /100WBC; PLATELET COUNT* 290 thou/uL (150-400); POLYS 71.5 %; RBC 4.22 mil/uL (4.20-5.00); RDW-CV 16.2 % (10.5-14.5); WBC 9.3 thou/uL (4.0-11.0)
[2018-02-06 16:14] LABS: ANION GAP 9 mmol/L (7-16); APTT 28.5 Seconds (25.0-31.3); BUN 24 mg/dL (7-18); CHLORIDE 102 mmol/L (98-107); CO2 27 mmol/L (21-32); CREATININE 1.3 mg/dL (0.6-1.3); GLUCOSE 97 mg/dL (70-99); INR 1.1; POTASSIUM 3.8 mmol/L (3.5-5.1); PROTIME 10.7 Seconds (9.20-11.50); SODIUM 138 mmol/L (136-145)
[2018-02-06 16:27] LABS: ALBUMIN 3.6 g/dL (3.4-5.0); ALKALINE PHOSPHATASE 66 U/L (46-116); LIPASE 75 U/L (73-393); NT-PRO BRAIN NAT PEPTIDE 1658 pg/mL (<300); SGOT 33 U/L (15-37); SGPT 22 U/L (30-65); TOTAL BILIRUBIN 0.6 mg/dL (<0.1-1.0); TOTAL PROTEIN 6.7 g/dL (6.4-8.2); TROPONIN-I LEVEL <0.06 ng/mL (<0.06)
[2018-02-06 18:25] VITALS: BP 105/67
--- NOTE | 2018-02-06 18:40 | NUR ---
PT ARRIVED ON THE UNIT FROM ER. REPORT TAKEN FROM JANEY. CARDIAC MONITER PUT ON. PT TRACING SR 1ST DEGREE BBB HR 72. VITALS TAKEN AND ARE WNL. PT IS AFEBEILE. DAUGHTERS ARE AT BEDSIDE. PT IS A&O AND HAS NO C/O PAIN OR NAUSEA. PT HAS DINNER AND IS EATING. SHE IS ON ROOM AIR.
[2018-02-06 18:55] VITALS: BP 147/46
[2018-02-06 19:50] VITALS: BP 113/52
[2018-02-07] VITALS: BP 112/44
[2018-02-07 04:16] LABS: ABSOLUTE BASOPHILS 0.1 thou/uL (0.0-0.2); ABSOLUTE EOSINOPHILS 0.2 thou/uL (0.0-0.7); ABSOLUTE LYMPHOCYTES 2.5 thou/uL (0.8-5.3); ABSOLUTE MONOCYTES 0.8 thou/uL (0.0-1.2); ABSOLUTE NEUTROPHILS 4.7 thou/uL (1.6-8.1); BASOPHILS 0.9 %; EOSINOPHILS 2.6 %; HEMATOCRIT 33.6 % (37.0-47.0); LYMPHOCYTES 29.6 %; MCH 31.5 pg (26.0-34.0); MCV 95.6 fL (80.0-100.0); MONOCYTES 10.2 %; MPV 8.2 fl. (7.2-11.1); NUCLEATED RBCS 0 /100WBC; PLATELET COUNT* 230 thou/uL (150-400); POLYS 56.7 %; RBC 3.51 mil/uL (4.20-5.00); RDW-CV 15.9 % (10.5-14.5); WBC 8.3 thou/uL (4.0-11.0)
[2018-02-07 04:26] VITALS: BP 131/40
[2018-02-07 04:48] LABS: HEMOGLOBIN 11.1 gm/dL (12.0-15.0)
--- NOTE | 2018-02-07 04:48 | NUR ---
END SHIFT: PT RESTED WELL. NO COMPLAINTS. NO PAIN. SR 1ST DEG AVB, BBB, PVCS NOTED ON MONITOR. ASSESSMENT UNCHANGED. SAFETY PRECAUTIONS IN PLACE. VSS. CALL LIGHT IN REACH. PERFORMED HOURLY ROUNDING. FAMILY AT BEDSIDE. WILL CONT TO MONITOR.
[2018-02-07 06:02] LABS: CALCIUM 9.7 mg/dL (8.5-10.1); CREATININE 1.2 mg/dL (0.6-1.3); POTASSIUM 4.1 mmol/L (3.5-5.1)
[2018-02-07 08:00] VITALS: BP 101/39
--- NOTE | 2018-02-07 08:46 | NUR ---
ASSUMED PT CARE AT 0730, FULL ASSESMENT DONE CHARTED. PT A/O X4, NENANA, DENIES PAIN, BP LOW THIS AM, ALL OTHER VSS, DISCUSSED PLAN OF CARE WITH PT AND HER DTR. NPO FOR CARDIOLOGY CONSULT. FALL PRECATUIONS IN PLACE. CALL LIGHT IN REACH, PT USES IT APPROPRIALTY. WILL CONTINUE WITH PLAN OF CARE.
[2018-02-07 11:30] VITALS: BP 109/38
--- NOTE | 2018-02-07 12:37 | EKG ---
[place] [address] ELECTROCARDIOGRAM REPORT Name: YONATHAN MENDEZ Room: [address] M.R.#: [id number] Admission: 02/06/18 Attend Phys: Isai Daley MD Discharge: Date of : 34 Report #: [id number] THIS REPORT FOR: //name// [facility] ED Test Date: 2018-02-06 Test Time: 14:35:33 Pat Name: YONATHAN MENDEZ Department: Room: [facility] Gender: F Fire Lieutenant: NIDHI : 1935 Requested By: Erika Humphries Order Number: [id number] MD: Messi Landin Measurements Intervals [place] Rate: 76 P: 107 CA: 255 QRS: -66 QRSD: 154 T: 109 QT: 436 QTc: 491 Interpretive Statements Sinus rhythm Prolonged CA interval Left bundle branch block Baseline wander in lead(s) II,III,aVR,aVL,aVF Compared to ECG 01/27/2018 20:52:10 No significant changes Electronically Signed On 02-07-2018 12:37:07 CDT by Messi Landin [email or web address] <ELECTRONICALLY SIGNED> By: Messi Landin MD, FACC 02/07/18 1237 1435 1435 Messi Landin MD, FACC /EPI
[2018-02-07 15:48] VITALS: BP 109/38
== END 2018-02-07 16:45 | disposition home or self-care (01) ==
LOC: M.ERS 14:30 → M.TBA-ER 17:00 → M.2W 18:24
PROVIDERS: Personal Emergency Response Attendant; ADMIT Internal Medicine
DX: R07.89 Other chest pain (principal); K27.9 Peptic ulcer, site unspecified, unspecified as acute or chronic, without hemorrhage or perforation; I25.10 Atherosclerotic heart disease of native coronary artery without angina pectoris; M81.0 Age-related osteoporosis without current pathological fracture; I73.9 Peripheral vascular disease, unspecified; E03.9 Hypothyroidism, unspecified; M19.90 Unspecified osteoarthritis, unspecified site; I11.0 Hypertensive heart disease with heart failure; I50.20 Unspecified systolic (congestive) heart failure; F17.200 Nicotine dependence, unspecified, uncomplicated

== ENCOUNTER 2018-02-13 14:01 | Inpatient (IN) | payer MEDICARE, OTHER ==
[~2018-02-13] VITALS: Ht 139.7 cm; Wt 39.9 kg
[2018-02-13 14:09] VITALS: BP 136/49
[2018-02-13 14:31] LABS: ABSOLUTE BASOPHILS 0.1 thou/uL (0.0-0.2); ABSOLUTE EOSINOPHILS 0.2 thou/uL (0.0-0.7); ABSOLUTE LYMPHOCYTES 1.5 thou/uL (0.8-5.3); ABSOLUTE MONOCYTES 0.5 thou/uL (0.0-1.2); ABSOLUTE NEUTROPHILS 4.9 thou/uL (1.6-8.1); BASOPHILS 0.9 %; EOSINOPHILS 2.1 %; HEMATOCRIT 38.9 % (37.0-47.0); HEMOGLOBIN 12.8 gm/dL (12.0-15.0); LYMPHOCYTES 21.5 %; MCH 31.7 pg (26.0-34.0); MCHC 32.8 g/dL (28.0-37.0); MCV 96.4 fL (80.0-100.0); MONOCYTES 7.3 %; NUCLEATED RBCS 0 /100WBC; PLATELET COUNT* 250 thou/uL (150-400); POLYS 68.2 %; RBC 4.03 mil/uL (4.20-5.00); RDW-CV 15.7 % (10.5-14.5); WBC 7.2 thou/uL (4.0-11.0)
[2018-02-13 14:40] LABS: ANION GAP 9 mmol/L (7-16); BUN 28 mg/dL (7-18); CALCIUM 10.2 mg/dL (8.5-10.1); CHLORIDE 103 mmol/L (98-107); CO2 28 mmol/L (21-32); CREATININE 1.1 mg/dL (0.6-1.3); GLUCOSE 91 mg/dL (70-99); SODIUM 140 mmol/L (136-145)
[2018-02-13 14:41] LABS: APTT 28.9 Seconds (25.0-31.3); INR 1.1; PROTIME 10.7 Seconds (9.20-11.50)
[2018-02-13 15:00] LABS: ALBUMIN 3.3 g/dL (3.4-5.0); ALKALINE PHOSPHATASE 70 U/L (46-116); CK-MB MASS 2.6 ng/mL (<0.5-3.6); LIPASE 79 U/L (73-393); MAGNESIUM 1.6 mg/dL (1.8-2.4); NT-PRO BRAIN NAT PEPTIDE 1075 pg/mL (<300); SGOT 30 U/L (15-37); SGPT 18 U/L (30-65); TOTAL BILIRUBIN 0.4 mg/dL (<0.1-1.0); TOTAL PROTEIN 6.2 g/dL (6.4-8.2); TROPONIN-I LEVEL <0.06 ng/mL (<0.06)
[2018-02-13 16:58] VITALS: BP 123/43
[2018-02-13 18:09] VITALS: BP 129/38
[2018-02-13 18:10] VITALS: BP 104/40; BP 124/43
--- NOTE | 2018-02-13 18:26 | NUR ---
PATIENT CAME TO THE FLOOR FROM THE ER ALERT AND ORIENTED IN STABLE CONDITION. VITAL SIGNS STABLE ON ROOM AIR. SOME COMPLAINTS OF PAIN IN HER CHEST AREA. FAMILY IS AT BEDSIDE WITH PATIENT. ADMISSION ASSESSMENT, EDUCATION AND ORIENTATION TO ROOM DONE. CALL LIGHT IS IN REACH, WILL CONTINUE TO MONITOR.
[2018-02-14 00:02] VITALS: BP 124/52
[2018-02-14 04:43] LABS: CALCIUM 8.8 mg/dL (8.5-10.1); CREATININE 1.1 mg/dL (0.6-1.3); MAGNESIUM 1.3 mg/dL (1.8-2.4)
[2018-02-14 04:44] LABS: POTASSIUM 4.2 mmol/L (3.5-5.1)
--- NOTE | 2018-02-14 05:20 | NUR ---
ASSESSMENT COMPLETE. PT SLEPT MOST OF THE NIGHT. PT UP TWICE TO BSC WITH DIARRHEA. PT IS ON ROOM AIR WITH ADEQUATE SATS. PT GIVEN PRN TYLENOL FOR GENERALIZED PAIN. PT HAS IV IN RIGHT FOREARM, SALINE LOCKED. PT K+ REPLACED, NOW 4.2. PT IS UP ONE ASSIST TO BSC. PT IS FALL RISK, BED ALARM ON. SEE ASSESSMENT AND VITALS FOR OTHER DETAILS. CALL LIGHT WITHIN REACH, WILL CONTINUE PLAN OF CARE
[2018-02-14 08:00] VITALS: BP 108/45
--- NOTE | 2018-02-14 12:23 | NUR ---
MET WITH PT AND DTR/DELVIS WHO MANAGES PT'S FINANCIAL CONCERNS TO DISCUSS HOME SITUATION/DC PLANNING. PT LIVES ALONE. SPOUSE 12/27 SUDDENLY. SINCE THEN, PT HAS HAD 3 HOSPITAL ADMITS. DELVIS STATES LAST WEEK THAT HER SISTER DID 'PHONE TAG' WITH DR MAGALLON OFFICE RE: A DOSE CHANGE ON PT'S SYNTHROID. THEY DO HAVE THE MED AT HOME NOW BUT PT HAS NOT STARTED IT. PT IS ABLE TO COOK, DO HER OWN ADLS. HAS WALKER AND CANE BUT NOT CURRENTLY USING THEM. DTRS EITHER STAY WITH PT OR CHECK ON HER AT LEAST DAILY OR MORE THAN ONCE DAILY. PT'S SISTER PLANS TO MOVE IN WITH HER SOON. PT DOESN'T DRIVE, DTRS RUN ERRANDS AND GET GROCERIES AND TAKE MEALS OVER. PT'S DTR/ADRYAN MANAGES HER MEDICAL CONCERNS. DISCUSSED HH, PT HAS HAD IN THE PAST AND IS AGREEABLE TO HAVE AGAIN AT [place]. DELVIS FEELS IT'D BE HELPFUL DOES PT. CANNOT REMEMBER NAME OF LAST AGENCY BUT DELVIS STATES THAT HER SISTER MAY. WILL FOLLOW AND ASSIST
--- NOTE | 2018-02-14 14:35 | EKG ---
[place] [address] ELECTROCARDIOGRAM REPORT Name: YONATHAN MENDEZ Room: [address] ADM IN M.R.#: [id number] Admission: 02/13/18 Attend Phys: Fei Schroeder MD Discharge: Date of : 34 Report #: [id number] THIS REPORT FOR: //name// [facility] ED Test Date: 2018-02-13 Test Time: 14:13:00 Pat Name: YONATHAN MENDEZ Department: Room: [facility] Gender: F Car Hop: LISETH Martinez : 1935 Requested By: Pratik Montero Order Number: [id number] MD: Som Hendrickson Measurements Intervals [place] Rate: 67 P: -74 [place]: 221 QRS: -61 QRSD: 168 T: 120 QT: 468 QTc: 494 Interpretive Statements Sinus or ectopic atrial rhythm Prolonged [place] interval Left bundle branch block Compared to ECG 02/06/2018 14:35:33 Ectopic atrial rhythm now present Sinus rhythm no longer present Electronically Signed On 02-14-2018 14:35:19 CDT by Som Hendrickson [email or web address] <ELECTRONICALLY SIGNED> By: Som Hendrickson MD, FACC 02/14/18 1435 1413 1413 Som Hendrickson MD, FAC /EPI
[2018-02-14 16:00] VITALS: BP 118/42
--- NOTE | 2018-02-14 19:46 | NUR ---
PT IS ALERT AND ORIENTED, PLEASANT, DENIES ANY PAIN WEAKNESS NOTED SBA TO BSC NO DIARRHEA THIS SHIFT BLOOD PRESSURES ARE SOFT AT TIMES HRIR 1+ EDEMA TO BLE ELEVATED IN BED WARM DRY SKIN MAG REPLACED TODAY AND LEVOTHYROXINE GIVEN THIS AM FAMILY AT BEDSIDE T/O DAY NO CONCERNS CALL LIGHT IN REACH CALLS OUT APPROPRIATELY
[2018-02-15 00:50] VITALS: BP 136/53
[2018-02-15 04:11] LABS: HEMATOCRIT 34.2 % (37.0-47.0); HEMOGLOBIN 11.2 gm/dL (12.0-15.0); MCH 31.5 pg (26.0-34.0); MCHC 32.7 g/dL (28.0-37.0); MCV 96.3 fL (80.0-100.0); MPV 8.4 fl. (7.2-11.1); RBC 3.55 mil/uL (4.20-5.00); WBC 6.3 thou/uL (4.0-11.0)
[2018-02-15 04:26] LABS: ANION GAP 9 mmol/L (7-16); BUN 24 mg/dL (7-18); CALCIUM 8.8 mg/dL (8.5-10.1); CHLORIDE 108 mmol/L (98-107); CHOLESTEROL 197 mg/dL (<200); CO2 24 mmol/L (21-32); CREATININE 1.1 mg/dL (0.6-1.3); GLUCOSE 193 mg/dL (70-99); HDL CHOLESTEROL 59 mg/dL (>40); LDL CHOLESTEROL 121 mg/dL (<100); MAGNESIUM 1.6 mg/dL (1.8-2.4); POTASSIUM 3.7 mmol/L (3.5-5.1); SODIUM 141 mmol/L (136-145); TC:HDL 3.3 Ratio (Not establshd); TRIGLYCERIDE 86 mg/dL (<150); VLDL 17 mg/dL (<40)
[2018-02-15 04:46] LABS: SERUM ASSESSMENT Clear
--- NOTE | 2018-02-15 06:13 | NUR ---
ASSESSMENT COMPLETE. PT SLEPT THROUGH THE NIGHT WITHOUT ANY CONCERNS. FAMILY AT BEDSIDE. PT DENIES PAIN AND N/V. PT HAS IV IN RIGHT FOREARM, SALINE LOCKED. SKIN INTACT. PT TURNS SELF DURING THE NIGHT. PT IS FALL RISK, BED ALARM ON. SEE ASSESSMENT AND VITALS FOR OTHER DETAILS. CALL LIGHT WITHIN REACH, WILL CONTINUE PLAN OF CARE
--- NOTE | 2018-02-15 10:59 | CON ---
[address] [address] CONSULTATION Name: YONATHAN MENDEZ Room: [address] IN M.R.#: [id number] Admission: 02/13/18 Attend Phys: Fei Schroeder MD Discharge: Date of : 34 Report #: [id number] THIS REPORT FOR: //name// CC: Saw Louie INDICATION: Chest pain and heart failure. HISTORY OF PRESENT ILLNESS: The patient is a very pleasant 82-year-old white female who was readmitted to the hospital with complaints of chest pain. She was recently diagnosed with a cardiomyopathy with an ejection fraction of 25%-30%. Stress testing was suggestive of prior myocardial infarctions, although she has no clinical history of myocardial infarctions. Formal invasive evaluation has not been undertaken. Her chest pain has resolved. She does also have problems with gastric and duodenal ulcers for which she was recently started on Protonix and Carafate. Of note, her approximately 2 months ago. She has a family supporting her. She describes the chest pain as midsternal in location, radiating across the chest and persisting for several hours. The pain was not necessarily worse with activity. She denied any diaphoresis or nausea. A 12-lead EKG on admission shows sinus rhythm with left bundle branch block. Lab review shows troponins to be unremarkable. PAST MEDICAL HISTORY: 1. Cardiomyopathy, etiology not entirely clear. 2. Aortic stenosis. 3. Aortic insufficiency. 4. Gastric and duodenal ulcers. 5. Chronic systolic heart failure. 6. History of small-bowel obstruction. 7. 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 8. Dyslipidemia. 9. Hypertension. 10. Hypothyroidism. FAMILY HISTORY: Noncontributory. SOCIAL HISTORY: The patient smokes a half a pack of cigarettes daily. CURRENT MEDICATIONS: Os-Ricardo 1 tablet daily, carvedilol 6.25 mg b.i.d., furosemide 20 mg daily, Synthroid 25 mcg daily, lisinopril 20 mg daily, Centrum for adults 1 tablet daily, Protonix 40 mg b.i.d., Aldactone 25 mg daily, Carafate 1 gram q.i.d., PreserVision [place] [address] CONSULTATION Name: YONATHAN MENDEZ Room: [address]#: [id number] Admission: 02/13/18 Attend Phys: Fei Schroeder MD Discharge: Date of : 34 Report #: [id number] PHYSICAL EXAMINATION: VITAL SIGNS: Stable. Blood pressure 108/45, pulse 64 and regular. GENERAL: This is a thin, elderly white female in no distress. Mood and affect appropriate. HEENT: The patient is wearing glasses. Extraocular muscles intact. Mucous membranes are moist. NECK: Shows no jugular venous distention. There is a cardiac murmur that radiates to carotids bilaterally. CHEST: Reveals clear lung quiñonez. CARDIOVASCULAR: Reveals a regular rhythm with a grade 2/6 systolic ejection murmur and a grade 2/6 holodiastolic murmur. I do not appreciate gallop. ABDOMEN: Reveals normal bowel sounds. The abdomen is soft, nontender. EXTREMITIES: Shows no edema. IMPRESSION AND RECOMMENDATIONS: 1. Cardiomyopathy, etiology not clear. I will review her previous stress test and echocardiogram. We will decide whether invasive evaluation should be appropriate. We will continue heart failure medications including lisinopril and carvedilol and spironolactone. We will make adjustments as tolerated. 2. Chest pain, atypical. The patient has ruled out for myocardial infarction. Doubt this represents any type of acute coronary syndrome. Suspect this is more likely gastrointestinal in nature. Would continue Protonix and Carafate. 3. Hypertension, adequately controlled. 4. Hyperlipidemia. I do not see that she is on a statin agent. We will check fasting lipid profile. 5. Chronic tobacco use, smoking cessation advised. <ELECTRONICALLY SIGNED> By: Som Hendrickson MD, FACC 02/15/18 1059 1251 [id number] Hendrickson MD, FACC /nt
[2018-02-15 15:59] VITALS: BP 105/41
--- NOTE | 2018-02-15 17:27 | NUR ---
PATIENT IS ALERT AND ORIENTED TODAY VERY PLEASANT. FAMILY AT BEDSIDE TODAY. NO COMPLAINT OF PAIN TODAY. UP TO THE RESTROOM AND BEDSIDE COMMODE. VITAL SIGNS ARE STABLE ON ROOM AIR. CALL LIGHT IS IN REACH, WILL CONTINUE TO MONITOR.
[2018-02-16] VITALS (16 sets, daily range): BP systolic 102–144; BP diastolic 40–55
[2018-02-16 04:30] LABS: CALCIUM 8.9 mg/dL (8.5-10.1); CREATININE 1.2 mg/dL (0.6-1.3); MAGNESIUM 1.6 mg/dL (1.8-2.4); POTASSIUM 3.9 mmol/L (3.5-5.1)
--- NOTE | 2018-02-16 06:00 | NUR ---
ASSESSMENT COMPLETE. PT SLEPT MOST OF THE NIGHT. FAMILY AT BEDSIDE. PT AMBULATES WITH WALKER TO BATHROOM. PT HAS BEEN NPO SINCE MIDNIGHT FOR CATH TODAY, CONSENT SIGNED AND IN THE CHART. PT DENIES PAIN AND N/V. PT HAS IV IN RIGHT FOREARM. NOTIFIED NITRATING ACID MIXER THAT WE NEED 18G PLACED IN LEFT ARM FOR PROCEDURE. PT IS FALL RISK, BED ALARM ON. SEE ASSESSMENT AND VITALS FOR OTHER DETAILS. CALL LIGHT WITHIN REACH, WILL CONTINUE PLAN OF CARE
--- NOTE | 2018-02-16 08:15 | NUR ---
SPOKE WITH PARTITION MAKING MACHINE OPERATOR REGARDING PATIENT'S UPCOMING HEART CATH TODAY. ORDERS RECEIVED TO START NS AT 75ML/HR. REPLACING MAGNESIUM PER ELECTROLYTE PROTOCOL. 18G IV STARTED BY NURSING BAND TOP MAKER TO LEFT WRIST FOR UPCOMING HEART CATH. UPDATED PATIENT AND DAUGHTER ON PLAN OF CARE FOR TODAY. DENIES ANY FURTHER NEEDS. CALL LIGHT WITHIN REACH. WILL CONTINUE WITH PLAN OF CARE.
--- NOTE | 2018-02-16 10:49 | NUR ---
SPOKE WITH SCHEDULING AGENT REGARDING NEW IV HURTING THAT WAS PLACED. SCHEDULING AGENT RN UP TO ASSESS IV, ATTEMPT MADE AND IV INFILTRATED. 18G IV REMOVED PER SCHEDULING AGENT RN. IV FLUIDS INFUSING PER RFA IV. CONTINUES TO BE NPO. FAMILY AT BEDSIDE. CALL LIGHT WITHIN REACH. WILL CONTINUE WITH PLAN OF CARE.
--- NOTE | 2018-02-16 11:24 | NUR ---
PATIENT TAKEN VIA BED AT THIS TIME TO ART HISTORIAN WITH ART HISTORIAN PERSONNEL. PATIENT'S FAMILY ACCOMPANIED PATIENT TO ART HISTORIAN.
--- NOTE | 2018-02-16 13:05 | NUR ---
REPORT CALLED TO MELISSA ON TELE. PATIENT TO BE TRANSFERRED TO ROOM 203 AFTER HEART CATH. ASSISTED FAMILY WITH TRANSFERRING BELONGINGS TO ROOM.
--- NOTE | 2018-02-16 15:32 | NUR ---
RECEIVED REPORT FROM 3W AT 1300. PT IN COMPOSITOR APPRENTICE RECOVERY. REPORT FROM COMPOSITOR APPRENTICE AT 1345. PT ARRIVED TO FLOOR AT 1354 IN BED. BED IN LOW LOCKED POSITION, FALL PRECAUTIONS IN PLACE. CALL BUTTON AND PERSONAL ITEMS IN PT REACH. DAUGHTERS AT BEDSIDE. HR BRADYCARDIC VIA COMPUTER SYSTEMS INFORMATION DIRECTOR AND AUSCULTATION. LCTAB/DIMINISHED. ABD SOFT TO PALPATE, NO N/V. VSS ON RA. SKIN INTACT. RIGHT GROIN DRESSING C/D/I, MINIMAL HEMATOMA PRESENT. RIGHT WRIST SITE C/D/I, GAUZE AND TRANSPARENT DRESSING IN PLACE. NS 75 ML/HR INTO RIGHT FOREARM 22 GAUGE UNTIL 1999 TONIGHT. PT PRESENTLY ON BEDREST UNTIL 1929 TO MOVE RIGHT LE, CONTINUE TO MONITOR RIGHT GROIN CATH INSERTION SITE AND RIGHT WRIST INSERTION SITE. PT DENIES PAIN AT THIS TIME. BED AT 30 DEG AND LOWER UNITL 1929. PT UP SBA WITH WALKER TO BATHROOM WHEN UP. PT A&O X4, COOPERATIVE, PLEASANT. HOURLY ROUNDING AND POST CATH VS CONTINUE. WILL CONTINUE TO MONITOR PT STATUS AND PROGRESS.
--- NOTE | 2018-02-16 18:30 | CARD ---
[address] [address] CARDIAC CATH REPORT Name: YONATHAN MENDEZ Room: [address] ADM IN M.R.#: [id number] Admission: 02/13/18 Attend Phys: Fei Schroeder MD Discharge: Date of : 34 Report #: [id number] THIS REPORT FOR: //name// APPROVED REPORT Study performed: 02/16/2018 11:06:44 Patient Details Patient Status: In-Patient Room #: 203 The patient is a 82 year-old female Event Personnel Joseph Edmondson Truck Striker, Kailyn Hernandez RN Transfer And Line Up Worker, Francesco Vergara (R) Monitor, Jaspal, Radha RTR Scrub Procedures Performed Left Heart Cath w/or w/o Coronaries, Supravalvular Aortography Injection Indication CardiomyopathyPositive stress test, Valvular heart disease, Chest pain, Murmur Risk Factors Arterial Hypertension, Tobacco History () Procedure Narrative The patient was brought electively to the Cardiac Catheterization Laboratory and was prepped and draped in a sterile manner. The right femoral was infiltrated with 1% Lidocaine subcutaneous anesthesia. A 6fr Ultimum Sheath sheath was inserted into the Right Femoral Artery. Coronary angiography was performed using coronary diagnostic catheters. The right coronary system was accessed and visualized with a Diagnostic 3DRC 6fr catheter. The left coronary system was accessed and visualized with a Diagnostic JL 3.5 5fr catheter. The left ventricle was accessed and visualized with a Diagnostic PC: Angled Pig 5fr catheter. Left ventricular/Aortic Valve gradient assessed via catheter pullback. Left ventriculogram was performed in [place] projection. An aortogram of the ascending aorta was performed. Pre-demployment femoral angiogram was performed . Closure device was deployed with a 6 Fr MynxGrip 6/7F. The patient tolerated the procedure well and there were no complications associated with the procedure. A hematoma occurred. Attempted procedure from the right radial artery. Arterial blood was obtained with the needle, but unable to advance wire into artery. Therefore, [place] [address] CARDIAC CATH REPORT Name: YONATHAN MENDEZ Room: [address] IN [facility]#: [id number] Admission: 02/13/18 Attend Phys: Fei Schroeder MD Discharge: Date of : 34 Report #: [id number] procedure from the right femoral artery. Intraoperative Conscious Sedation Sedation start time: 11:50 Case end Time: 12:26 Versed 1 mg Fluoro Time: 4.2 minutes Dose: DAP 98049 cGycm2 448 mGy Contrast Type and Amount: Visipaque 55 ml Coronary Angiography The patient's coronary anatomy is right dominant. [place] Artery Percent Stenosis Left Main: 0 % Prox LAD: 0 % Mid/Distal LAD: 30 % Circumflex: 0 % RCA: 40 % Ramus: % Left Ventriculography The left ventricular ejection fraction is estimated to be 35-40%. There is no mitral insufficiency. Aortic root injection revealed moderate aortic insufficiency Hemodynamics The aortic pressure is 142/41 mmHg with a mean of 76 mmHg. The left ventricular pressure is 139/3 mmHg with a mean of mmHg. The left ventricular end diastolic pressure is 13 mmHg. Pullback from the left ventricle to the aorta revealed a 10 mm gradient across the aortic valve. Conclusion 1. mild cad 2. moderate aortic insufficiency and mild aortic stenosis 3. dilated cardiomyopathy Recommendations Cardiac Rehabilitation Referral Aggressive Medical Therapy <ELECTRONICALLY SIGNED> By: Joseph Edmondson MD, FACC 02/16/181828 28 28Joseph Edmondson MD, FACC /INF
--- NOTE | 2018-02-16 20:30 | NUR ---
REPORT TO COMMERCIAL ENERGY RATER FOR CONTINUED CARES. PT REMAINS STABLE, POST CATH VS COMPLETED. DAUGHTERS AT BEDSIDE. PT REMAINS A&O X4, COOPERATIVE, PLEASANT. PT MAY MOVE RIGHT CATH LEG AT 1930 AND FLUIDS TO BE D/C'D PER DR. ALY AT 1999. PT REFUSED TO EAT DINNER UNTIL AFTER SHIFT CHANGE. DAUGHTER ABRASIVE AND RAISED VOICE WHEN ASKED WHY WE COULD NOT HEAT UP HER MOTHERS MEAL AND IF WE WERE JUST GOING TO GIVE HER ANOTHER COLD BOX LUNCH. NURSE STATED PT CHOSE NOT TO EAT WHEN FOOD WAS WARM AND READY AND THIS NURSE FELT IT MIGHT NOT BE SAFE TO EAT THE MEAL SINCE IT SAT, COVERED, OVER TWO HOURS. DAUGHTER STATED HER MOTHER IS 83 YEARS OLD AND KNOWS WHAT SHE WANTS. NURSE HEATED PLATE AND RETURNED IT TO PT. PT AND DAUGHTER THANKED NURSE. PT RIGHT GROIN AND RIGHT WRIST DRESSING REMAIN C/D/I. PT PROGRESSING TOWARDS GOAL. HOURLY ROUNDING COMPLETED.
[2018-02-17] VITALS: BP 113/44
[2018-02-17 04:00] VITALS: BP 103/48; BP 122/49; BP 94/45
--- NOTE | 2018-02-17 07:03 | NUR ---
NO ACUTE CHANGES, PATIENT DID NOT SHOW SIGNS OF DISTRESS. CALL LIGHT WITHIN REACH, BED ALERM ON, FALL PRECAUTIONS IN PLACE, HOURLY ROUNDING OBSERVED.
[2018-02-17 09:00] VITALS: BP 115/54
[2018-02-17 11:16] VITALS: BP 126/78
[2018-02-17 15:18] VITALS: BP 99/66
--- NOTE | 2018-02-17 17:25 | NUR ---
PATIENT IS ALERT AND ORIENTED TODAY. FAMILY HAS BEEN AT BEDSIDE. HAS COMPLAINED OF PAIN TODAY IN GROIN WHERE CATH WAS DONE. PAIN IS CONTROLLED BY TYLENOL, WORKED WELL WITH THERAPY TODAY. PATIENT SHOULD BE ABLE TO DISCHARGE TOMORROW WITH HOME HEALTH OR TO SKILLED. PROVIDER SUGGESTED SKILLED WITH ALL OF THE ADMISSIONS THAT PATIENT HAS HAD RECENTLY. VITAL SIGNS HAVE BEEN STABLE. CALL LIGHT IS IN REACH, FAMILY AT BEDSIDE, WILL CONTINUE TO MONITOR.
[2018-02-17 20:00] VITALS: BP 150/94
[2018-02-18] VITALS: BP 112/44
[2018-02-18 04:00] VITALS: BP 118/42
--- NOTE | 2018-02-18 05:24 | NUR ---
PATIENT RESTED IN BED. PAIENT DID NOT SHOW SIGNS OF DISTRESS, NO ACUTE CHANGES. CATH SITE IW WARM, DRY, CLEAN, SOFT. FALL PRECAUTIONS IN PLACE, BED ALARM ON, HOURLY ROUNDING OBSERVED, CALL LIGHT WITH IN REACH. PATIENT REFUSED PLACEMENT OF NEW IV.
[2018-02-18 08:00] VITALS: BP 131/47
[2018-02-18] MEDS ORDERED: CORTEF10 MG PO (08:51)
[2018-02-18] MEDS ORDERED: SYNTHROID100 MC1 PO (08:51)
[2018-02-18] MEDS ORDERED: KLOR-CON 1010 MEQ PO (09:04)
[2018-02-18] MEDS ORDERED: CARVEDILOL12.5 MG PO (11:09)
--- NOTE | 2018-02-18 11:48 | NUR ---
Pt discharging to home today. Dtr to call CM with name of HH agency that they want to use. CM to fax HH orders once agency name received.
== END 2018-02-18 12:08 | disposition home health service (06) | DRG 286 ==
LOC: M.ERS 14:01 → M.TBA-ER 14:54 → M.3W 14:54 → M.2W 02-16 13:05
PROVIDERS: Family Medicine; ADMIT Internal Medicine
PROC: B2151ZZ Fluoroscopy of Left Heart using Low Osmolar Contrast (ICD-10-PCS; principal; 2018-02-16)
PROC: B2111ZZ Fluoroscopy of Multiple Coronary Arteries using Low Osmolar Contrast (ICD-10-PCS; principal; 2018-02-16)
PROC: 4A023N7 Measurement of Cardiac Sampling and Pressure, Left Heart, Percutaneous Approach (ICD-10-PCS; principal; 2018-02-16)
DX: I25.10 Atherosclerotic heart disease of native coronary artery without angina pectoris (principal); G93.41 Metabolic encephalopathy; I50.22 Chronic systolic (congestive) heart failure; K91.2 Postsurgical malabsorption, not elsewhere classified; E27.40 Unspecified adrenocortical insufficiency; I11.0 Hypertensive heart disease with heart failure; E03.9 Hypothyroidism, unspecified; I73.9 Peripheral vascular disease, unspecified; E86.0 Dehydration; E87.6 Hypokalemia; I42.0 Dilated cardiomyopathy; I35.0 Nonrheumatic aortic (valve) stenosis; M81.0 Age-related osteoporosis without current pathological fracture; E78.5 Hyperlipidemia, unspecified; F17.210 Nicotine dependence, cigarettes, uncomplicated; Z93.3 Colostomy status; Z98.1 Arthrodesis status; Z95.820 Peripheral vascular angioplasty status with implants and grafts; Z79.899 Other long term (current) drug therapy; Z88.8 Allergy status to other drugs, medicaments and biological substances

== ENCOUNTER → 2018-02-24 | Outpatient (CLI) | payer MEDICARE, OTHER ==
[~2018-02-24] MED LIST changes: +ATORVASTATIN PO; +CARVEDILOL12.5 MG PO; +CEFUROXIME500 MG PO; +CORTEF10 MG PO; +KLOR-CON 1010 MEQ PO; +LIDOCAINE1 EACH TRANSDERM; +NORCO 5-325 TA1 EACH PO; +SPIRONOLACTONE25 M1 PO; +SYNTHROID100 MC1 PO; +TIROSINT100 MCG PO; +TYLENOL PO
== END ==
LOC: M.ULTRA 13:53
DX: R19.09 Other intra-abdominal and pelvic swelling, mass and lump (principal); R10.31 Right lower quadrant pain; E03.9 Hypothyroidism, unspecified

== ENCOUNTER → 2018-05-12 | Outpatient (CLI) | payer MEDICARE, OTHER ==
[2018-05-12 12:02] LABS: ALBUMIN 3.1 g/dL (3.4-5.0); ALKALINE PHOSPHATASE 58 U/L (46-116); CHOLESTEROL 111 mg/dL (<200); DIRECT BILIRUBIN 0.1 mg/dL (<0.1-0.3); HDL CHOLESTEROL 64 mg/dL (>40); LDL CHOLESTEROL 34 mg/dL (<100); SGOT 21 U/L (15-37); SGPT 16 U/L (30-65); TC:HDL 1.7 Ratio (Not establshd); TOTAL BILIRUBIN 0.3 mg/dL (<0.1-1.0); TOTAL PROTEIN 6.3 g/dL (6.4-8.2); TRIGLYCERIDE 68 mg/dL (<150); VLDL 14 mg/dL (<40)
[2018-05-12 12:05] LABS: SERUM ASSESSMENT Clear
== END ==
LOC: M.LAB 11:18
PROVIDERS: Nurse Practitioner Family
DX: E78.00 Pure hypercholesterolemia, unspecified (principal)

== ENCOUNTER → 2018-06-04 | Day surgery (SDC) | payer MEDICARE, OTHER ==
--- NOTE | ~2018-06-04 | PROC ---
[address] [address] PROCEDURE REPORT Name: YONATHAN MENDEZ Room: [facility] M.R.#: [id number] Admission: 06/04/18 Attend Phys: Gabby Machado MD Discharge: Date of : 34 Report #: [id number] THIS REPORT FOR: //name// For GI report, please see the Provation report in Perceptive 7 content. By: [id number] Records Staff INDERJIT /RADHA
[2018-06-04 13:08] LABS: HEMATOCRIT 36.7 % (37.0-47.0); MCH 31.1 pg (26.0-34.0); MCHC 32.7 g/dL (28.0-37.0); MPV 8.3 fl. (7.2-11.1); RBC 3.87 mil/uL (4.20-5.00); WBC 7.2 thou/uL (4.0-11.0)
[2018-06-04 13:17] LABS: CALCIUM 8.8 mg/dL (8.5-10.1); CREATININE 0.8 mg/dL (0.6-1.3); POTASSIUM 3.8 mmol/L (3.5-5.1)
== END | disposition home or self-care (01) ==
LOC: M.SUR 06:58
PROVIDERS: Internal Medicine Gastroenterology
DX: K22.8 Other specified diseases of esophagus (principal); K44.9 Diaphragmatic hernia without obstruction or gangrene; Z98.0 Intestinal bypass and anastomosis status; I10 Essential (primary) hypertension; I73.9 Peripheral vascular disease, unspecified; F17.210 Nicotine dependence, cigarettes, uncomplicated; E03.9 Hypothyroidism, unspecified; K21.9 Gastro-esophageal reflux disease without esophagitis; Z86.73 Personal history of transient ischemic attack (TIA), and cerebral infarction without residual deficits; Z98.890 Other specified postprocedural states; Z79.899 Other long term (current) drug therapy

== ENCOUNTER 2018-06-27 21:13 | Inpatient (IN) | payer MEDICARE, OTHER ==
[~2018-06-27] VITALS: Ht 139.7 cm; Wt 39.0 kg
[~2018-06-27 21:13] MED LIST changes: -ATORVASTATIN PO; -CEFUROXIME500 MG PO; -LIDOCAINE1 EACH TRANSDERM; -NORCO 5-325 TA1 EACH PO; -SPIRONOLACTONE25 M1 PO; -TIROSINT100 MCG PO; -TYLENOL PO
[2018-06-27 21:22] VITALS: BP 128/49
[2018-06-27] MEDS ORDERED: PROTONIX40 M1 PO (21:29)
[2018-06-27] MEDS ORDERED: TIROSINT100 MCG PO (21:29)
[2018-06-27 21:53] LABS: URINE BILIRUBIN NEGATIVE (Negative); URINE BLOOD NEGATIVE (Negative); URINE CLARITY CLEAR; URINE COLOR YELLOW; URINE GLUCOSE-RANDOM NEGATIVE (Negative); URINE KETONES NEGATIVE (Negative); URINE LEUKOCYTES-REFLEX 1+ (Negative); URINE NITRITE-REFLEX NEGATIVE (Negative); URINE PROTEIN NEGATIVE (Negative); URINE UROBILINOGEN 0.2 E.U./dl (0.2-1.0)
[2018-06-27 21:55] LABS: ABSOLUTE BASOPHILS 0.1 thou/uL (0.0-0.2); ABSOLUTE EOSINOPHILS 0.1 thou/uL (0.0-0.7); ABSOLUTE LYMPHOCYTES 2.4 thou/uL (0.8-5.3); ABSOLUTE MONOCYTES 0.7 thou/uL (0.0-1.2); ABSOLUTE NEUTROPHILS 3.8 thou/uL (1.6-8.1); BASOPHILS 0.8 %; EOSINOPHILS 1.5 %; HEMATOCRIT 37.7 % (37.0-47.0); HEMOGLOBIN 12.3 gm/dL (12.0-15.0); LYMPHOCYTES 33.8 %; MCH 31.1 pg (26.0-34.0); MCHC 32.6 g/dL (28.0-37.0); MCV 95.3 fL (80.0-100.0); MONOCYTES 9.3 %; MPV 8.3 fl. (7.2-11.1); NUCLEATED RBCS 0 /100WBC; PLATELET COUNT* 212 thou/uL (150-400); POLYS 54.6 %; RBC 3.96 mil/uL (4.20-5.00); RDW-CV 14.6 % (10.5-14.5)
[2018-06-27 22:02] LABS: CALCIUM 9.1 mg/dL (8.5-10.1); CREATININE 1.6 mg/dL (0.6-1.3)
[2018-06-27 22:04] LABS: SQUAMOUS >10 Many /LPF (0-3)
[2018-06-27 22:05] LABS: BACTERIA-REFLEX >30 Many /HPF (None Seen); CRYSTALS None Seen /LPF (None Seen); HYALINE CASTS 0-3 Few /LPF (None Seen); URINE RBC None Seen /HPF (0-2); URINE WBC-REFLEX 6-15 Few /HPF (0-5)
[2018-06-27 22:07] LABS: TOTAL BILIRUBIN 0.3 mg/dL (<0.1-1.0); TOTAL PROTEIN 7.3 g/dL (6.4-8.2)
[2018-06-28 01:02] VITALS: BP 121/49
[2018-06-28 02:42] VITALS: BP 145/46
[2018-06-28 10:06] VITALS: BP 122/41; BP 139/70
--- NOTE | 2018-06-28 12:33 | EKG ---
[place] [address] ELECTROCARDIOGRAM REPORT Name: YONATHAN MENDEZ Room: [address] ADM IN M.R.#: [id number] Admission: 06/27/18 Attend Phys: Clement Zhao, Discharge: Date of : 34 Report #: [id number] THIS REPORT FOR: //name// [facility] ED Test Date: 2018-06-27 Test Time: 22:52:17 Pat Name: YONATHAN MENDEZ Department: Room: [facility] Gender: F Cyber Security Manager: HERMINIO : 1935 Requested By: Joel Rose Order Number: [id number] MD: Joseph Edmondson Measurements Intervals [place] Rate: 58 P: -30 CO: 295 QRS: -62 QRSD: 162 T: 105 QT: 487 QTc: 479 Interpretive Statements atrial sensed ventricular paced rhythm Prolonged [place] interval Probable left atrial enlargement Baseline wander in lead(s) III,aVL,V5 Compared to ECG 02/13/2018 14:13:00 no change Electronically Signed On 06-28-2018 12:33:38 CDT by Joseph Edmondson [email or web address] <ELECTRONICALLY SIGNED> By: Joseph Edmondson MD, [facility] 06/28/18 1233 2252 2252 Joseph Edmondson MD, [facility] /EPI
[2018-06-28 16:05] VITALS: BP 120/44
[2018-06-28 22:15] VITALS: BP 131/41
[2018-06-29 05:32] LABS: ABSOLUTE BASOPHILS 0.1 thou/uL (0.0-0.2); ABSOLUTE EOSINOPHILS 0.2 thou/uL (0.0-0.7); ABSOLUTE LYMPHOCYTES 2.2 thou/uL (0.8-5.3); ABSOLUTE MONOCYTES 0.6 thou/uL (0.0-1.2); EOSINOPHILS 2.7 %; HEMATOCRIT 30.7 % (37.0-47.0); MCH 31.8 pg (26.0-34.0); MCHC 32.9 g/dL (28.0-37.0); MCV 96.6 fL (80.0-100.0); MONOCYTES 9.7 %; MPV 8.6 fl. (7.2-11.1); NUCLEATED RBCS 0 /100WBC; PLATELET COUNT* 161 thou/uL (150-400); POLYS 49.6 %; RBC 3.17 mil/uL (4.20-5.00); RDW-CV 14.9 % (10.5-14.5)
[2018-06-29 05:45] LABS: CALCIUM 8.3 mg/dL (8.5-10.1); CREATININE 0.9 mg/dL (0.6-1.3); POTASSIUM 4.3 mmol/L (3.5-5.1)
[2018-06-29 05:52] LABS: HEMOGLOBIN 10.1 gm/dL (12.0-15.0)
[2018-06-29 08:00] VITALS: BP 127/42
[2018-06-29 16:28] VITALS: BP 122/36
[2018-06-29 16:33] VITALS: BP 120/83
[2018-06-29 20:00] VITALS: BP 134/40; BP 149/46
[2018-06-30 08:00] VITALS: BP 137/45
[2018-06-30] MEDS ORDERED: CEFUROXIME500 MG PO (09:06)
[2018-06-30] MEDS ORDERED: SPIRONOLACTONE25 M1 PO (09:10)
[2018-06-30 09:13] VITALS: BP 134/40
--- NOTE | 2018-06-30 12:32 | CON ---
[address] [address] CONSULTATION Name: YONATHAN MENDEZ Room: [address] IN M.R.#: [id number] Admission: 06/27/18 Attend Phys: Clement Zhao, Discharge: Date of : 33 Report #: [id number] THIS REPORT FOR: //name// CC: Saw Zhao DATE OF SERVICE: 06/29/2018 REQUESTING PHYSICIAN: Clement Zhao MD REASON FOR CONSULT: Dilated common bile duct and abdominal pain. HISTORY OF PRESENT ILLNESS: This is an 83-year-old female with a history of peptic ulcer disease who initially underwent upper endoscopy in 01/2018. At that time, she was found to have duodenal and gastric ulcer. She was placed on sucralfate and double dose of PPI and her scope was repeated on 06/04. At that time, there was complete resolution of her ulcers. She was then told to decrease her PPI to once daily and stop the sucralfate. The patient reports that prior to coming in, she started having severe epigastric pain which prompted her to come to hospital since this was not getting better. Since hospitalization, her epigastric pain has completely resolved. She denies nausea, vomiting, dyspepsia, dysphagia and GERD at this time. PAST MEDICAL HISTORY: Significant for history of peptic ulcer disease, coronary artery disease, CHF, hypothyroidism, small bowel obstruction, gastroesophageal reflux disease and hypertension. She also has had spinal fusion, history of gastric surgery, kyphoplasty and right popliteal angioplasty. ALLERGIES: SIGNIFICANT FOR CILASTATIN, IMIPENEM AND ERTAPENEM. MEDICATIONS: Please refer to hospital MAR. SOCIAL HISTORY: The patient denies tobacco or alcohol use. FAMILY HISTORY: Noncontributory. PHYSICAL EXAMINATION: VITAL SIGNS: Reveals blood pressure of 127/42, respirations 16, pulse 54, temperature 97.8. LUNGS: Clear. CARDIOVASCULAR: Regular. ABDOMEN: Soft, nontender, nondistended. Bowel sounds are positive. LABORATORY DATA: Revealed sodium of 141, potassium is 4.3, BUN is 33, [place] [address] CONSULTATION Name: YONATHAN MENDEZ Room: [address] IN [facility].#: [id number] Admission: 06/27/18 Attend Phys: Clement Zhao, Discharge: Date of : 34 Report #: [id number] creatinine 0.9, glucose 52. Liver function tests all within normal limits. WBC is 6, hemoglobin 10.1 with platelet of 161. IMAGING: Abdominal ultrasound suggestive of dilated common bile duct to 10 mm with normal intrahepatic duct. ASSESSMENT AND PLAN: The patient with a history of peptic ulcer disease, which had resolved in May. Therefore, her medications were simplified. We will go up on her Protonix to 40 mg p.o. b.i.d. and resume diet. I doubt that the dilated common bile duct with normal LFTs is any explanation to her pain. We may consider endoscopic ultrasound if her pain persists with double dose of proton pump inhibitor. <ELECTRONICALLY SIGNED> By: Gabby Machado MD 06/30/18 1232 1227 [id number] Machado MD /nt
[2018-06-30 14:00] VITALS: BP 134/40
== END 2018-06-30 12:40 | disposition home or self-care (01) | DRG 683 ==
LOC: M.ERS 21:13 → M.ORTHSURG 23:51 → M.TBA-ER 23:51 → M.ORTHSURG 06-28 01:30
PROVIDERS: Internal Medicine; Physician Assistant; ADMIT Family Medicine
DX: N17.9 Acute kidney failure, unspecified (principal); E87.1 Hypo-osmolality and hyponatremia; N39.0 Urinary tract infection, site not specified; E44.1 Mild protein-calorie malnutrition; K29.00 Acute gastritis without bleeding; E86.0 Dehydration; I73.9 Peripheral vascular disease, unspecified; E03.9 Hypothyroidism, unspecified; I25.10 Atherosclerotic heart disease of native coronary artery without angina pectoris; I50.9 Heart failure, unspecified; K21.9 Gastro-esophageal reflux disease without esophagitis; I11.0 Hypertensive heart disease with heart failure; K83.8 Other specified diseases of biliary tract; M81.0 Age-related osteoporosis without current pathological fracture; F17.210 Nicotine dependence, cigarettes, uncomplicated; Z93.3 Colostomy status; Z87.11 Personal history of peptic ulcer disease; Z98.1 Arthrodesis status; Z95.820 Peripheral vascular angioplasty status with implants and grafts; Z79.899 Other long term (current) drug therapy; Z88.8 Allergy status to other drugs, medicaments and biological substances

== ENCOUNTER 2018-07-25 19:51 | Inpatient (IN) | payer MEDICARE, OTHER ==
[~2018-07-25] VITALS: Ht 139.7 cm; Wt 41.3 kg
[~2018-07-25 19:51] MED LIST changes: +CEFUROXIME500 MG PO; +SPIRONOLACTONE25 M1 PO; +TIROSINT100 MCG PO
[2018-07-25 19:57] VITALS: BP 143/49
[2018-07-25] MEDS ORDERED: TYLENOL PO (20:11)
[2018-07-25] MEDS ORDERED: ATORVASTATIN PO (20:11)
[2018-07-25 20:27] LABS: ABSOLUTE BASOPHILS 0.1 thou/uL (0.0-0.2); ABSOLUTE LYMPHOCYTES 1.5 thou/uL (0.8-5.3); ABSOLUTE MONOCYTES 1.1 thou/uL (0.0-1.2); ABSOLUTE NEUTROPHILS 6.4 thou/uL (1.6-8.1); BASOPHILS 0.9 %; EOSINOPHILS 0.3 %; HEMATOCRIT 37.8 % (37.0-47.0); HEMOGLOBIN 12.5 gm/dL (12.0-15.0); LYMPHOCYTES 16.1 %; MCH 31.5 pg (26.0-34.0); MCV 95.5 fL (80.0-100.0); MONOCYTES 11.9 %; MPV 8.4 fl. (7.2-11.1); NUCLEATED RBCS 0 /100WBC; PLATELET COUNT* 190 thou/uL (150-400); POLYS 70.8 %; RBC 3.96 mil/uL (4.20-5.00); RDW-CV 15.7 % (10.5-14.5); WBC 9.1 thou/uL (4.0-11.0)
[2018-07-25 20:35] LABS: ANION GAP 14 mmol/L (7-16); BUN 50 mg/dL (7-18); CALCIUM 8.6 mg/dL (8.5-10.1); CHLORIDE 105 mmol/L (98-107); CO2 19 mmol/L (21-32); CREATININE 1.4 mg/dL (0.6-1.3); GLUCOSE 107 mg/dL (70-99); POTASSIUM 4.3 mmol/L (3.5-5.1); SODIUM 138 mmol/L (136-145)
[2018-07-25 20:42] LABS: ALBUMIN 3.5 g/dL (3.4-5.0); ALKALINE PHOSPHATASE 57 U/L (46-116); LIPASE 99 U/L (73-393); SGOT 18 U/L (15-37); SGPT 11 U/L (30-65); TOTAL BILIRUBIN 0.5 mg/dL (<0.1-1.0); TOTAL PROTEIN 7.1 g/dL (6.4-8.2); TROPONIN-I LEVEL <0.06 ng/mL (<0.06)
[2018-07-25 21:14] LABS: URINE BILIRUBIN NEGATIVE (Negative); URINE BLOOD NEGATIVE (Negative); URINE CLARITY CLEAR; URINE COLOR YELLOW; URINE GLUCOSE-RANDOM NEGATIVE (Negative); URINE KETONES NEGATIVE (Negative); URINE LEUKOCYTES-REFLEX NEGATIVE (Negative); URINE NITRITE-REFLEX NEGATIVE (Negative); URINE PROTEIN 1+ (Negative); URINE UROBILINOGEN 0.2 E.U./dl (0.2-1.0)
[2018-07-25 23:13] VITALS: BP 137/56
--- NOTE | 2018-07-25 23:25 | NUR ---
PATIENT ARRIVED ON UNIT AT 2325. ASSISTED TO TRANSFER TO UNIT BED. ORIENTED TO UNIT AND CONTROLS. ADMISSION COMPLETE CHARTED. CALL LIGHT WITHIN REACH. FALL PRECAUTIONS IN PLACE. NURSING WILL CONTINUE TO MONITOR.
[2018-07-25 23:40] VITALS: BP 136/46
--- NOTE | 2018-07-26 05:42 | NUR ---
PATIENT REMAINS ALERT AND ORIENTED X4 THROUGHOUT SHIFT. VITAL SIGNS STABLE ON ROOM AIR. IV PATENT IN THE LEFT WRIST INFUSING AT 90 ML/HR PER ORDERS. TRANSFERS STANDBY ASSIST TO THE RESTROOM. DENIES PAIN OR NAUSEA. REPOSITIONING SELF IN BED FAMILY AT BEDSIDE THROUGHOUT NIGHT. HOURLY ROUNDING COMPLETE. CALL LIGHT WITHIN REACH. FALL PRECAUTIONS IN PLACE. NURSING WILL CONTINUE TO MONITOR.
[2018-07-26 08:40] VITALS: BP 100/58
[2018-07-26 17:11] VITALS: BP 98/35
--- NOTE | 2018-07-26 17:26 | NUR ---
PATIENT ALERT AND ORIENTED X 4. VITAL SIGNS STABLE ON ROOM AIR. UP WITH STAND BY ASSISTANCE TO THE BEDSIDE COMODE. IV PATENT WITH FLUIDS INFUSING. DENIES NAUSEA. PAIN BEING MANAGED WITH IV MEDICATION. SCD'S IN PLACE BILATERALLY. HOURLY ROUNDS MAINTAINED THROUGHOUT THE SHIFT. CALL LIGHT WITHIN REACH. NURSING WILL CONTINUE TO MONITOR.
[2018-07-26 20:00] VITALS: BP 129/43
[2018-07-27 04:31] LABS: ABSOLUTE EOSINOPHILS 0.2 thou/uL (0.0-0.7); ABSOLUTE MONOCYTES 0.8 thou/uL (0.0-1.2); ABSOLUTE NEUTROPHILS 2.9 thou/uL (1.6-8.1); BASOPHILS 0.7 %; EOSINOPHILS 2.6 %; HEMATOCRIT 30.2 % (37.0-47.0); LYMPHOCYTES 33.5 %; MCHC 32.8 g/dL (28.0-37.0); MCV 97.6 fL (80.0-100.0); MONOCYTES 13.8 %; NUCLEATED RBCS 0 /100WBC; PLATELET COUNT* 148 thou/uL (150-400); POLYS 49.4 %; RBC 3.09 mil/uL (4.20-5.00); RDW-CV 16.5 % (10.5-14.5); WBC 5.9 thou/uL (4.0-11.0)
[2018-07-27 05:04] LABS: ALBUMIN 2.5 g/dL (3.4-5.0); CALCIUM 7.4 mg/dL (8.5-10.1); CREATININE 0.8 mg/dL (0.6-1.3); TOTAL BILIRUBIN 0.2 mg/dL (<0.1-1.0); TOTAL PROTEIN 5.1 g/dL (6.4-8.2)
[2018-07-27 05:28] LABS: HEMOGLOBIN 9.9 gm/dL (12.0-15.0)
--- NOTE | 2018-07-27 07:29 | NUR ---
Alert and oriented x 4. She has been in bed this shift. She is able to move in bed. Vitals are stable. She did request pain meds x 2. She's had nothing by mouth since midnight. She is up with assist x 1 with supervision to the bathroom.
[2018-07-27 09:30] VITALS: BP 138/49
--- NOTE | 2018-07-27 15:25 | NUR ---
PT.GONE FOR TESTING. DAUGHTER,ADRYAN IN ROOM. CM SPOKE WITH HER. SHE SAID HER MOM LIVES ALONE BUT SHE AND HER SISTER AND THEIR CHILDREN ARE VERY SUPPORTIVE. SHE AND HER SISTER COME OVER TO HAVE LUNCH WITH THEIR MOM EVERY DAY BEFORE THEY GO TO WORK AND TO CHECK ON HER. ADRYAN GETS OFF AT 11 PM AND CALLS HER MOM TO CHECK ON HER AND HER SISTER GETS OFF AT MIDNIGHT AND THEN CALLS HER. THEY GET HER GROCERIES FOR HER. PT.DOESN'T LIKE TO SHOP ANYMORE. PT.DOES NOT USE ANY DME AT HOME, BUT HAS A WALKER,CANE,SHOWER CHAIR,GRAB BARS,AND HI TOILETS. SHE DOES HAVE A LIFE ALERT. SHE CAN ALSO CALL ANYONE OF HER ADULT GRANDCHILDREN IF SHE NEEDS SOMETHING DURING THE DAY. SHE IS ABLE TO BATHE,DRESS HERSELF,COOK, ETC. ADRYAN SAID LAST TIME HER MOM HAD A VERTEBROPLASTY SHE WALKED OUT OF [facility] AND WENT HOME THE SAME DAY. SHE HOPES SHE CAN DO THAT AGAIN. CM WILL FOLLOW.
[2018-07-27 16:00] VITALS: BP 140/42
--- NOTE | 2018-07-27 18:11 | NUR ---
PATIENT HAS BEEN ALERT AND ORIENTED TODAY. COMPLAINS OF PAIN IN BACK UNABLE TO DO KYPHOPLASTY DUE TO OLD FRACTURES AND NOTHING ACUTE. BACK BRACE HAS BEEN RECOMMENDED, UNSURE IF PATIENT WILL WEAR IT, SHOVEL LOGGER IS IN ROOM NOW FITTING PATIENT. PATIENT HAS PIPTA SCAN TODAY. VITAL SIGNS HAVE BEEN STABLE ON ROOM AIR, CALL LIGHT IS IN REACH, WILL CONTINUE TO MONITOR.
[2018-07-27 23:55] VITALS: BP 120/42
--- NOTE | 2018-07-28 05:03 | NUR ---
PATIENT SLEPT WELL DURING THIS SHIFT. DAUGHTER AT BEDSIDE. PT ABLE TO REPOSITION HERSELF IN BED. PT USES CALL LIGHT APPROPRIATELY FOR ASSISTANCE TO BATHROOM. PT UP WITH STANDBY AMD WALKER TO BATHROOM. PT WAS IN CHAIR AT BEGINNING OF SHIFT WITH BACK BRACE ON. PT SAID IT FEELS MUCH BETTER ON. PT DID REMOVE IT DURING THE NIGHT. PT DENIES NEEDS AT THIS TIME. FREQUENTLY USED ITEMS AND CALL LIGHT WITHIN REACH. SIDERAILS UPX3 AND BED ALARM ON. WILL CONTINUE TO MONITOR.
[2018-07-28 10:00] VITALS: BP 133/52
[2018-07-28] MEDS ORDERED: LIDOCAINE1 EACH TRANSDERM (11:12)
[2018-07-28] MEDS ORDERED: NORCO 5-325 TA1 EACH PO (11:13)
[2018-07-28 11:14] VITALS: BP 133/52
--- NOTE | 2018-07-28 12:17 | NUR ---
PATIENT IS ALERT AND ORIENTED TODAY VERY PLEASANT. UP WITH STAND BY ASSIST WITH WALKER AND BACK BRACE. PATIENT STATES THAT BACK BRACE HELPS A LOT. HAS HAD SOME COMPLAINTS OF PAIN THAT IS CONTROLLED WITH PAIN MEDICATION, REST AND BACK BRACE. BEING DISCHARGED TO HOME WITH DAUGHTER. DISCHARGE INSTRUCTIONS AND PRESCRIPTIONS GIVEN. QUESTIONS ANSWERED FOR PATIENT AND DAUGHTER.
[2018-07-28 14:50] VITALS: BP 133/52
--- NOTE | 2018-08-09 12:05 | CON ---
[address] [address] CONSULTATION Name: YONATHAN MENDEZ Room: [address] IN M.R.#: [id number] Admission: 07/25/18 Attend Phys: Clement Zhao, Discharge: 07/28/18 Date of : 34 Report #: [id number] THIS REPORT FOR: //name// CC: Saw Zhao MD DATE OF SERVICE: 07/26/2018 GASTROENTEROLOGY CONSULTATION REFERRING PHYSICIAN: Clement Zhao MD REASON FOR CONSULTATION: Epigastric pain. IMPRESSION: 1. Epigastric pain -- evaluate for hepatobiliary problems versus pancreatic issues. 2. Abnormal CT scan and abdominal ultrasound demonstrating a dilated common bile duct without evidence for intrahepatic ducts with gallbladder still in situ. 3. History of perforated peptic ulcer disease with recent nonsteroidal-induced duodenal ulcers -- resolved on upper endoscopy performed on 06/04/2018. 4. History of multiple compression fractures, new onset back pain. RECOMMENDATIONS: 1. Agree with proceeding CCK-PIPIDA scan that is scheduled for tomorrow. 2. Agree with IR consult for possible kyphoplasty with Dr. Fei Gunter. 3. Consider MRCP if feasible to better evaluate hepatobiliary tree and pancreas, but there is probably going to be lots of artifact on CT scans, which includes visualization of the pancreatic head. 4. I have discussed the plans with the patient as well as daughter and they are agreeable to the same. HISTORY OF PRESENT ILLNESS: The patient is a very pleasant 83-year-old white female who was admitted to hospital with rather severe intractable back pain. She also has problems with epigastric pain, nausea, vomiting and recently had problems with ulceration for which she underwent upper endoscopy back in January 2017, which revealed evidence for the same. 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 She has had multiple ulcers for which was placed on medications for the same. She is admitted to the hospital now because of problems with rather severe back pain and difficulty with getting around. She has already been undergoing some workup to evaluate for gallbladder disease and has been unrevealing so far. She is admitted to the hospital for evaluation [place] [address] CONSULTATION Name: YONATHAN MENDEZ Room: [address] IN [facility].#: [id number] Admission: 07/25/18 Attend Phys: Clement Zhao, Discharge: 07/28/18 Date of : 34 Report #: [id number] ALLERGIES: PRIMAXIN. MEDICATIONS: At home include levothyroxine, Os-Ricardo, lisinopril, carvedilol, multivitamin, pantoprazole, spironolactone. PAST MEDICAL HISTORY: Remarkable for hypertension. She has had problem with peripheral vascular disease, hypothyroidism and osteoporosis. She has had previous kyphoplasty and vertebroplasty. She has had history of ruptured ulcer requiring surgical intervention, also history of ruptured colon for which she had surgical intervention for the same. SOCIAL HISTORY: She previously smoked. She does not drink alcohol. FAMILY HISTORY: Negative. PHYSICAL EXAMINATION: GENERAL: Revealed pleasant 83-year-old white female who is awake and alert. CARDIOPULMONARY: Revealed a regular rate and rhythm. LUNGS: Clear. ABDOMEN: Soft. She is in her epigastric area. No rebound or guarding noted. LABORATORY DATA: Revealed a white count of 9.1, hemoglobin 12.5, platelet count 190,000. Sodium 138, potassium 4.3, chloride 105, bicarbonate is 19, BUN 50, creatinine 1.4. Total bilirubin 0.5, alkaline phosphatase 57, AST 18, ALT 11. Her albumin is 3.5. CT scan of the abdomen and pelvis without contrast revealed no inflammatory changes around the gallbladder. There is a lot of streak artifacts from surgical clips and vertebroplasty cement. DISCUSSION: At the present time, the patient has problem with epigastric pain. We will await results from PIPIDA scan at this time and make further recommendations during hospital stay. <ELECTRONICALLY SIGNED> By: Peter Marx DO 08/09/18 1205 1713 [id number] Marx DO /nt
== END 2018-07-28 14:52 | disposition home or self-care (01) | DRG 542 ==
LOC: M.ERS 19:51 → M.TBA-ER 22:48 → M.ORTHSURG 22:48
PROVIDERS: Emergency Medicine; Internal Medicine Gastroenterology; ADMIT Family Medicine
DX: M80.08XA Age-related osteoporosis with current pathological fracture, vertebra(e), initial encounter for fracture (principal); N17.0 Acute kidney failure with tubular necrosis; E44.1 Mild protein-calorie malnutrition; F17.210 Nicotine dependence, cigarettes, uncomplicated; I12.9 Hypertensive chronic kidney disease with stage 1 through stage 4 chronic kidney disease, or unspecified chronic kidney disease; I70.0 Atherosclerosis of aorta; I73.9 Peripheral vascular disease, unspecified; E03.9 Hypothyroidism, unspecified; N18.3 Chronic kidney disease, stage 3 (moderate); Z93.2 Ileostomy status; Z93.3 Colostomy status; Z88.8 Allergy status to other drugs, medicaments and biological substances; Z95.5 Presence of coronary angioplasty implant and graft; Z82.49 Family history of ischemic heart disease and other diseases of the circulatory system; Z83.6 Family history of other diseases of the respiratory system; Z79.899 Other long term (current) drug therapy; Z68.21 Body mass index [BMI] 21.0-21.9, adult; K21.9 Gastro-esophageal reflux disease without esophagitis; J44.9 Chronic obstructive pulmonary disease, unspecified

== ENCOUNTER 2018-11-19 22:03 | Inpatient (IN) | payer MEDICARE, OTHER ==
[~2018-11-19] VITALS: Ht 139.7 cm; Wt 40.8 kg
[~2018-11-19 22:03] MED LIST changes: +ATORVASTATIN PO; +LIDOCAINE1 EACH TRANSDERM; +NORCO 5-325 TA1 EACH PO; +TYLENOL PO
[2018-11-19 22:13] VITALS: BP 189/81
[2018-11-19 22:41] LABS: ABSOLUTE EOSINOPHILS 0.1 thou/uL (0.0-0.7); ABSOLUTE LYMPHOCYTES 1.2 thou/uL (0.8-5.3); ABSOLUTE MONOCYTES 0.6 thou/uL (0.0-1.2); ABSOLUTE NEUTROPHILS 2.9 thou/uL (1.6-8.1); BASOPHILS 0.4 %; EOSINOPHILS 2.1 %; HEMATOCRIT 39.3 % (37.0-47.0); HEMOGLOBIN 12.8 gm/dL (12.0-15.0); LYMPHOCYTES 25.3 %; MCH 31.8 pg (26.0-34.0); MCHC 32.6 g/dL (28.0-37.0); MCV 97.3 fL (80.0-100.0); MONOCYTES 12.9 %; MPV 8.4 fl. (7.2-11.1); NUCLEATED RBCS 0 /100WBC; PLATELET COUNT* 249 thou/uL (150-400); POLYS 59.3 %; RBC 4.04 mil/uL (4.20-5.00); RDW-CV 13.7 % (10.5-14.5); WBC 4.9 thou/uL (4.0-11.0)
[2018-11-19 22:49] LABS: ANION GAP 12 mmol/L (7-16); BUN 17 mg/dL (7-18); CALCIUM 9.2 mg/dL (8.5-10.1); CHLORIDE 107 mmol/L (98-107); CO2 22 mmol/L (21-32); GLUCOSE 146 mg/dL (70-99); SODIUM 141 mmol/L (136-145)
[2018-11-19 22:50] LABS: INR 1.1; PROTIME 11.1 Seconds (9.20-11.50)
[2018-11-19 23:00] LABS: ALBUMIN 3.5 g/dL (3.4-5.0); ALKALINE PHOSPHATASE 86 U/L (46-116); NT-PRO BRAIN NAT PEPTIDE 4400 pg/mL (<300); SGOT 25 U/L (15-37); SGPT 19 U/L (30-65); TOTAL BILIRUBIN 0.2 mg/dL (<0.1-1.0); TOTAL PROTEIN 7.2 g/dL (6.4-8.2); TROPONIN-I LEVEL <0.06 ng/mL (<0.06)
[2018-11-19 23:04] LABS: URINE BILIRUBIN NEGATIVE (Negative); URINE BLOOD TRACE (Negative); URINE CLARITY CLEAR; URINE COLOR YELLOW; URINE GLUCOSE-RANDOM NEGATIVE (Negative); URINE KETONES NEGATIVE (Negative); URINE LEUKOCYTES-REFLEX NEGATIVE (Negative); URINE NITRITE-REFLEX NEGATIVE (Negative); URINE PROTEIN NEGATIVE (Negative); URINE SPECIFIC GRAVITY 1.015 (1.005-1.030); URINE UROBILINOGEN 0.2 E.U./dl (0.2-1.0)
[2018-11-19 23:23] LABS: INFLUENZA A ANTIGEN None Detected (None Detect); INFLUENZA B ANTIGEN None Detected (None Detect)
[2018-11-20 00:15] VITALS: BP 186/75
--- NOTE | 2018-11-20 05:41 | NUR ---
PT ARRIVED ON UNIT AT 0045 ASSISSTED TO ROOM ORIENTED TO SURROUNDINGS PT ALERT AND ORIENTED X4 VS AND ASSESSMENT STABLE. PT DENIED ANY COMAPLIANTS AND SLEPT THROUGH THE NIGHT. WILL CONTINUE PLAN OF CARE
[2018-11-20] MEDS ORDERED: TIROSINT100 MCG PO (08:16)
[2018-11-20] MEDS ORDERED: CENTRUM SILVER1 EAC4 PO (08:17)
--- NOTE | 2018-11-20 13:47 | EKG ---
[place] [address] ELECTROCARDIOGRAM REPORT Name: YONATHAN MENDEZ Room: [address] ADM IN M.R.#: [id number] Admission: 11/19/18 Attend Phys: Fei Schroeder MD Discharge: Date of : 34 Report #: [id number] THIS REPORT FOR: //name// [facility] ED Test Date: 2018-11-19 Test Time: 22:33:47 Pat Name: YONATHAN MENDEZ Department: Room: [facility] Gender: F Business Analyst Project Manager: AP : 1935 Requested By: Tisha Martin Order Number: [id number] MD: Joseph [place]son Measurements Intervals [place] Rate: 85 P: 93 MA: 241 QRS: -59 QRSD: 133 T: 108 QT: 416 QTc: 495 Interpretive Statements Sinus rhythm Multiple ventricular premature complexes Prolonged MA interval Left bundle branch block Compared to ECG 06/27/2018 22:52:17 Ventricular premature complex(es) now present Electronically Signed On 11-20-2018 13:47:14 COMMUNICATIONS TOWER CLIMBER by Joseph Edmondson [email or web address] <ELECTRONICALLY SIGNED> By: Joseph Edmondson MD, [facility] 11/20/18 1347 32 32 Joseph Edmondson MD, [facility] /EPI
--- NOTE | 2018-11-20 14:12 | 2DMMODE ---
[place] [address] 2 D/M-MODE ECHOCARDIOGRAM Name: YONATHAN MENDEZ Room: [address] IN [facility]#: [id number] Admission: 11/19/18 Attend Phys: Fei Schroeder, Discharge: Date of : 34 Date of Service: 11/20/18 1412 Report #: [id number] THIS REPORT FOR: //name// APPROVED REPORT Study performed: 11/20/2018 10:18:13 EXAM: Comprehensive 2D, Doppler, and color-flow Echocardiogram Patient Location: In-Patient Room #: 114 Status: routine BSA: 1.25 HR: 72 bpm BP: 186/75 mmHg Rhythm: NSR Other Information Study Quality: Good Indications Dyspnea 2D Dimensions IVSd: 10.96 (7-11mm) LVOT Diam: 20.59 (18-24mm) LVDd: 47.25 mm PWd: 11.13 (7-11mm) Ascending Ao: 33.21 (22-36mm) LVDs: 27.66 (25-40mm) Aortic Root: 30.90 mm Volumes Left Atrial Volume (Systole) LA ESV Index: 40.50 mL/m2 Aortic Valve AoV Peak Ernesto.: 1.81 m/s AO Peak Gr.: 13.09 mmHg LVOT Max P.83 mmHg AO Mean Gr.: 7.39 mmHg LVOT Mean P.98 mmHg LVOT Max V: 1.21 m/s AO V2 VTI: 36.68 cm LVOT Mean V: 0.81 m/s RICHA (VTI): 2.42 cm2 LVOT V1 VTI: 26.69 cm TDI Medial E' Ernesto.: 0.06 m/s Lateral E' Ernesto.: 0.06 m/[place] [address] 2 D/M-MODE ECHOCARDIOGRAM Name: YONATHAN MENDEZ Room: [address] IN ..#: [id number] Admission: 11/19/18 Attend Phys: Fei Schroeder, Discharge: Date of : 34 Date of Service: 11/20/18 1412 Report #: [id number] Pulmonary Valve PV Peak Ernesto.: 1.11 m/s PV Peak Gr.: 4.92 mmHg Left Ventricle The left ventricle is normal size. Paradoxical septal motion consistent with conduction abnormality. There is normal left ventricular wall thickness. Left ventricular systolic function is borderline. LVEF is 50-55%. The left ventricular diastolic function is normal. Right Ventricle The right ventricle is normal size. The right ventricular systolic function is normal. Atria Left atrium is mild to moderately dilated. The right atrium size is normal. Aortic Valve Mild aortic valve sclerosis. Moderate aortic regurgitation. There is no aortic valvular stenosis. Mitral Valve The mitral valve is normal in structure. Trace mitral regurgitation. No evidence of mitral valve stenosis. Tricuspid Valve The tricuspid valve is normal in structure. Unable to assess PA pressure. Trace tricuspid regurgitation. Pulmonic Valve The pulmonary valve is normal in structure. There is no pulmonic valvular regurgitation. Great Vessels The aortic root is normal in size. IVC is not well visualized. Pericardium There is no pericardial effusion. <Conclusion> Left atrium is mild to moderately dilated. [place] [address] 2 D/M-MODE ECHOCARDIOGRAM Name: YONATHAN MENDEZ Room: [address] IN M.R.#: [id number] Admission: 11/19/18 Attend Phys: Fei Schroeder, Discharge: Date of : 34 Date of Service: 11/20/181411 Report #: [id number] Moderate aortic regurgitation. LVEF is 50-55%. <ELECTRONICALLY SIGNED> By: Joseph Edmondson MD, FAC 11/20/181411 11 11 Joseph Edmondson MD, FACC /INF
[2018-11-20 15:51] VITALS: BP 149/67
--- NOTE | 2018-11-20 17:53 | NUR ---
SPOKE WITH PT.AND DAUGHTER,DELVIS. PT.LIVES ALONE. HER DAUGHTERS EAT LUNCH WITH HER EVERY DAY BEFORE THEY GO TO WORK. THEY CALL HER AFTER THEY GET OFF IN THE EVENING. ONE CALLS AT 11 THE OTHER AT 12. PT.SAID SHE GOES TO BED ABOUT 1 AM AND SLEEPS TIL 10 OR 11AM. SHE COOKS,DOES HER OWN LAUNDRY. DAUGHTERS SHOP AND CLEAN FOR HER,. HER GRANDCHILDREN ARE SUPPORTIVE AND HELPFUL IF SHE NEEDS SOMETHING. PT.HAS A LIFE ALERT,WALKER,CANE,SHOWER CHAIR,GRAB BARS AND HIGH TOILETS. SHE DOESNT NORMALLY USE THE CANE OR WALKER. NO HX OF HH. DOES NOT HAVE HOME O2. CM WILL FOLLOW FOR DISCHARGE.
--- NOTE | 2018-11-20 18:14 | NUR ---
PATIENT REMAINED ALERT AND ORIENTED X'S 4. VITAL SIGNS AND SPO2 STABLE. RECIEVED BREATHING TREATMENTS. COLOR IN FACE HAS IMPROVED GREATLY. COUGH IS WEAK AND NON-PRODUCTIVE. NURSE WAS UNABLE TO COLLECT A SPUTUM SAMPLE. IV CLEAN, FLUIDS INFUSING. TOLERATED DIET, NO NAUSEA AND VOMITING. VOIDED WITHOUT ISSUE. COMPLETED HOURLY ROUNDING. CALL LIGHT WITHIN REACH. WILL CONTINUE TO MONITOR.
[2018-11-20 19:45] VITALS: BP 175/82
--- NOTE | 2018-11-20 23:12 | NUR ---
INITAL ASSESMENT COMPLETED AT 1945. PT RESTING QUIETLY IN BED WITH DAUGHTER AT BEDSIDE ASSISTING WITH CARE. PT HAS OCCASIONAL NON PRODUCTIVE COUGH AND REPORTS ACHING IN RIBS AND BACK. PT ALSO REPRTS HEADACHE. PT GIVEN PRN TYLENOL AT HS WITH GOOD RESULTS. PT GIVEN TESSALON PEARLS AND PRN COUGH SYRUP WITH GOOD RESULTS. PT AFEBRILE, O2 SAT 95% ON 2 LITERS O2. CALL LIGHT IN REACH, PT AND FAMILY USING APPROPRIATELY
[2018-11-21 00:16] VITALS: BP 173/70
[2018-11-21 04:00] VITALS: BP 138/54
[2018-11-21 04:33] LABS: HEMATOCRIT 32.6 % (37.0-47.0); MCH 32.2 pg (26.0-34.0); MCHC 32.9 g/dL (28.0-37.0); MCV 97.7 fL (80.0-100.0); MPV 8.7 fl. (7.2-11.1); RBC 3.34 mil/uL (4.20-5.00); RDW-CV 13.5 % (10.5-14.5); WBC 4.2 thou/uL (4.0-11.0)
[2018-11-21 04:59] LABS: CREATININE 0.8 mg/dL (0.6-1.3); HEMOGLOBIN 10.7 gm/dL (12.0-15.0); MAGNESIUM 1.9 mg/dL (1.8-2.4); POTASSIUM 4.5 mmol/L (3.5-5.1)
--- NOTE | 2018-11-21 07:12 | NUR ---
PT CONTINUED ON O2 AT 2 LITERS TO MAINTAIN SAT > 94%. PT UP TO RESTROOM WITH STANDBY ASSIST. PT SHORT OF AIR WITH ACTIVITY AND RECOVERS SLOWLY. PT RECIEVING BREATHING TREATMENTS AND MEDS FOR RESPIRATORY INFECTION. VITAL SIGNS WITHIN NORMAL LIMITS. NO ACUTE CHANGES DURING SHIFT.
[2018-11-21 08:30] VITALS: BP 184/76
[2018-11-21 15:41] VITALS: BP 167/68
--- NOTE | 2018-11-21 16:53 | NUR ---
PATIENT REMAINED ALERT AND ORIENTED X'S 4. VITAL SIGNS AND SPO2 STABLE. IV CLEAN, FLUSHING. PATIENT HAS PAIN FROM COUGHING, GAVE TYLENOL, PAIN SUBSIDED. STILL ON 2L O2. STEADY GAIT. VOIDED WITHOUT ISSUE. RECIEVED BREATHING TREATMENTS. COMPLETED HOURLY ROUNDING. CALL LIGHT WITHIN REACH. WILL CONTINUE TO MONITOR.
[2018-11-21 20:00] VITALS: BP 144/55
[2018-11-22 04:18] LABS: HEMATOCRIT 34.1 % (37.0-47.0); HEMOGLOBIN 11.3 gm/dL (12.0-15.0); MCH 32.2 pg (26.0-34.0); MCHC 33.2 g/dL (28.0-37.0); MCV 96.9 fL (80.0-100.0); MPV 8.6 fl. (7.2-11.1); NUCLEATED RBCS 0 /100WBC; PLATELET COUNT* 210 thou/uL (150-400); RBC 3.52 mil/uL (4.20-5.00); RDW-CV 13.6 % (10.5-14.5); WBC 6.2 thou/uL (4.0-11.0)
[2018-11-22 04:50] LABS: CALCIUM 8.1 mg/dL (8.5-10.1); POTASSIUM 3.8 mmol/L (3.5-5.1)
--- NOTE | 2018-11-22 04:50 | NUR ---
PT REMAINED A&Ox4. VITALS STABLE, WITH BP OF 144/55 AND OX 95% ON 2LO2. PT COMPLAINED OF HEADACHE AT 1999, RELIEVED BY TYLENOL. UP WITH STANDBY ASSIST TO RESTROOM. IV IN L AC REMAINED PATENT, SL. DAUGHTER STAYED THE NIGHT IN THE ROOM WITH PT, WAS PLEASENT. PT SLEPT WELL THROUGHOUT THE NIGHT. FALL PRECAUTIONS IN PLACE. HOURLY ROUNDING COMPLETE. CALL LIGHT WITHIN REACH. WILL CONTINUE TO MONITOR.
[2018-11-22 07:33] LABS: ABSOLUTE LYMPHOCYTES 0.4 thou/uL (0.8-5.3); ABSOLUTE MONOCYTES 0.1 thou/uL (0.0-1.2); ABSOLUTE NEUTROPHILS 5.6 thou/uL (1.6-8.1); PLATELET ESTIMATE ADEQUATE
[2018-11-22 08:49] VITALS: BP 158/63
--- NOTE | 2018-11-22 15:46 | NUR ---
PATIENT REFUSED TO HAVE IV IN. PERIPHERAL IV REMOVED.
--- NOTE | 2018-11-22 16:08 | NUR ---
PATIENT REMAINS ALERT AND ORIENTED. TYLENOL EFFECTIVE FOR HEADACHE. UP WITH STANDBY ASSIST TO BATHROOM. BM 11/21/18. O2 TITRATED TO 1L. SAT 94%. VSS. TOLERATING MEALS. ENCOURAGED TO INCREASE ACTIVITY. POSSIBLE DISCHARGE TOMORROW. FAMILY AT BEDSIDE. CALL LIGHT WITHIN REACH. WILL CONTINUE TO MONITOR.
[2018-11-22 16:14] VITALS: BP 144/47
[2018-11-22 20:00] VITALS: BP 149/63
--- NOTE | 2018-11-23 04:39 | NUR ---
PT REMAINED A&Ox4 DURING SHIFT. VITALS STABLE. BP OF 149/63, OX 94% ON 1LO2. GOT UP WITH STAND BY ASSIST TO RESTROOM. DENIED PAIN. DAUGHTER AT BEDSIDE THROUGHOUT THE SHIFT. PT SLEPT MOST OF NIGHT. HOURLY ROUNDING COMPLETE. CALL LIGHT WITHIN REACH. WILL CONTINUE TO MONITOR.
[2018-11-23 08:45] VITALS: BP 176/68
[2018-11-23] MEDS ORDERED: AZITHROMYCIN 2250 MG PO (11:51)
[2018-11-23] MEDS ORDERED: CEFDINIR300 MG PO (11:51)
[2018-11-23] MEDS ORDERED: PREDNISONE 20 M20 MG PO (11:52)
[2018-11-23] MEDS ORDERED: TRAMADOL 50 MG50 MG PO (15:14)
--- NOTE | 2018-11-23 15:24 | NUR ---
MECHANICAL ENGINEERING LECTURER SPOKE TO THE PATIENT'S DTR TO DISCUSS DISCHARGE PLANNING, AND HH AT D/C. PATIENT'S DTR STATES 'WERE NOT INTERESTED, AND WE DON'T NEED IT'. D/C RUM PROCESSING OPERATOR INFORMED CM OF THIS INFO. CM WILL REMAIN AVAILABLE TO ASSIST AND FOLLOW NEEDED.
[2018-11-23 16:39] VITALS: BP 139/68
--- NOTE | 2018-11-23 17:05 | NUR ---
PATIENT REMAINS ALERT AND ORIENTED. CONTINUED TO REPORT RIGHT RIB PAIN THROUGHOUT SHIFT. INCREASE IN COUGHING. PATIENT UNABLE TO CLEAR SECRETIONS AT TIMES DUE TO RIB PAIN. PRN BREATHING TREATMENT HELPFUL. WROTE SCRIPT FOR TRAMADOL. PATIENT RESTING AT THIS TIME. DAUGHTER DOES NOT WANT TO WAKE HER. VOIDING PER TOILET. BM LAST NIGHT. PATIENT 92% ON RA TODAY. REST AND EXERCISE COMPLETED BY RESPIRATORY- PT DID NOT QUALIFY FOR HOME O2. DISCHARGE CANCELLED. BED ALARM IN USE. CALL LIGHT WITHIN REACH. WILL CONTINUE TO MONITOR.
--- NOTE | 2018-11-23 19:06 | NUR ---
IV REINSERTED TODAY DUE TO INCREASE IN COUGH. SOLUMEDROL AND LEVAQUIN IV RESTARTED. DAUGHTER UPDATED ON PLAN OF CARE.
[2018-11-23 20:00] VITALS: BP 147/54
--- NOTE | 2018-11-24 04:59 | NUR ---
PT REMAINED A&Ox4 DURING SHIFT. VITALS STABLE. REMAINED ON RA WITH OX OF 91%. GOT UP WITH ASSIST OF 1 TO BATHROOM. STARTED TRAMADOL AT THE END OF PREVIOUS SHIFT, TOLERATED WELL, PT STATED PAIN MINIMIZED. IV IN L FA JOSH SL. DAUGHTER AT BEDSIDE THROUGHOUT THE NIGHT. HOURLY ROUNDING COMPLETE. CALL LIGHT WITHIN REACH. WILL CONTINUE. TO MONITOR.
[2018-11-24 08:45] VITALS: BP 152/62
[2018-11-24] MEDS ORDERED: LEVAQUIN 750 M750 MG PO (13:25)
[2018-11-24] MEDS ORDERED: VENTOLIN HFA 1818 GM INH (13:25)
[2018-11-24] MEDS ORDERED: ADVAIR HFA 230M12 GM INH (13:25)
--- NOTE | 2018-11-24 13:26 | NUR ---
re: CHF medication education. Met with patient to discuss heart failure medication. Discussion focused on carvedilol, lisinopril and spironolactone. Pt's daughter present during discussion. We discussed rationale for therapy and importance of adhering to prescribed regimen. Reviewed possible side effects and potential management strategies. Left medication information sheet with patient and provided pharmacy contact information for any further questions or issues. Thank you.
--- NOTE | 2018-11-24 14:01 | NUR ---
SPOKE WITH PT.AND DAUGHTER. PT.TO BE DISCHARGED TODAY. CONTINUES TO DECLINE HOME HEALTH. APPT.MADE FOR PT.WITH DR.BRUCE MAGALLON. INFORMATION PLACED ON DISCHARGE INSTRUCTIONS.
--- NOTE | 2018-11-24 14:42 | NUR ---
PATIENT DISCHARGED TO HOME. IV REMOVED. REFUSED HOME HEALTH. SCRIPTS GIVEN. DISCUSSED NEW PRESCRIPTIONS WITH DAUGHTER AND PATIENT. PCP APPOINTMENT ARRANGED PRIOR TO DC. PATIENT AND SPOUSE VERBALIZE UNDERSTANDING OF DC INSTRUCTIONS.
== END 2018-11-24 15:22 | disposition home or self-care (01) | DRG 177 ==
LOC: M.ERS 22:03 → M.ORTHSURG 23:30 → M.TBA-ER 23:30 → M.ORTHSURG 11-20 00:35
PROVIDERS: Emergency Medicine; Family Medicine; ADMIT Internal Medicine
DX: J15.6 Pneumonia due to other Gram-negative bacteria (principal); J96.01 Acute respiratory failure with hypoxia; I50.43 Acute on chronic combined systolic (congestive) and diastolic (congestive) heart failure; I13.0 Hypertensive heart and chronic kidney disease with heart failure and stage 1 through stage 4 chronic kidney disease, or unspecified chronic kidney disease; J44.0 Chronic obstructive pulmonary disease with (acute) lower respiratory infection; J44.1 Chronic obstructive pulmonary disease with (acute) exacerbation; J20.8 Acute bronchitis due to other specified organisms; M81.0 Age-related osteoporosis without current pathological fracture; I73.9 Peripheral vascular disease, unspecified; E03.9 Hypothyroidism, unspecified; N18.3 Chronic kidney disease, stage 3 (moderate); I25.10 Atherosclerotic heart disease of native coronary artery without angina pectoris; Z87.11 Personal history of peptic ulcer disease; Z93.3 Colostomy status; Z98.1 Arthrodesis status; Z95.820 Peripheral vascular angioplasty status with implants and grafts; Z79.899 Other long term (current) drug therapy; Z88.8 Allergy status to other drugs, medicaments and biological substances; Z82.49 Family history of ischemic heart disease and other diseases of the circulatory system

== ENCOUNTER 2018-11-28 11:28 | Emergency (ER) | payer MEDICARE, OTHER ==
[~2018-11-28] VITALS: Ht 139.7 cm; Wt 40.8 kg
[~2018-11-28 11:28] MED LIST changes: +ADVAIR HFA 230M12 GM INH; +AZITHROMYCIN 2250 MG PO; +CEFDINIR300 MG PO; +CENTRUM SILVER1 EAC4 PO; +LEVAQUIN 750 M750 MG PO; +PREDNISONE 20 M20 MG PO; +TRAMADOL 50 MG50 MG PO; +VENTOLIN HFA 1818 GM INH
[2018-11-28 12:26] LABS: ABSOLUTE BASOPHILS 0.1 thou/uL (0.0-0.2); ABSOLUTE LYMPHOCYTES 1.8 thou/uL (0.8-5.3); ABSOLUTE NEUTROPHILS 7.6 thou/uL (1.6-8.1); BASOPHILS 0.8 %; EOSINOPHILS 0.1 %; HEMATOCRIT 39.5 % (37.0-47.0); LYMPHOCYTES 17.5 %; MCH 31.4 pg (26.0-34.0); MCHC 32.9 g/dL (28.0-37.0); MCV 95.4 fL (80.0-100.0); MONOCYTES 9.6 %; NUCLEATED RBCS 0 /100WBC; PLATELET COUNT* 273 thou/uL (150-400); RBC 4.13 mil/uL (4.20-5.00); RDW-CV 13.4 % (10.5-14.5); WBC 10.6 thou/uL (4.0-11.0)
[2018-11-28 12:35] LABS: ANION GAP 11 mmol/L (7-16); BUN 20 mg/dL (7-18); CALCIUM 9.2 mg/dL (8.5-10.1); CHLORIDE 101 mmol/L (98-107); CO2 26 mmol/L (21-32); CREATININE 0.9 mg/dL (0.6-1.3); GLUCOSE 82 mg/dL (70-99); POTASSIUM 3.5 mmol/L (3.5-5.1); SODIUM 138 mmol/L (136-145)
[2018-11-28 12:42] LABS: ALBUMIN 3.2 g/dL (3.4-5.0); ALKALINE PHOSPHATASE 63 U/L (46-116); APTT 25.8 Seconds (25.0-31.3); INR 1.2; PROTIME 12.2 Seconds (9.20-11.50); SGOT 19 U/L (15-37); SGPT 20 U/L (30-65); TOTAL BILIRUBIN 0.7 mg/dL (<0.1-1.0); TROPONIN-I LEVEL <0.06 ng/mL (<0.06)
[2018-11-28 14:30] VITALS: BP 183/65
--- NOTE | 2018-11-29 13:49 | EKG ---
[place] [address] ELECTROCARDIOGRAM REPORT Name: YONATHAN MENDEZ Room: [facility]#: [id number] Admission: 11/28/18 Attend Phys: Discharge: 11/28/18 Date of : 33 Report #: [id number] THIS REPORT FOR: //name// [facility] ED Test Date: 2018-11-28 Test Time: 11:32:45 Pat Name: YONATHAN MENDEZ Department: Room: Gender: F Machine Presser: BHAVESH : 1935 Requested By: Gigi Coleman Order Number: [id number] MD: Messi Landin Measurements Intervals [place] Rate: 68 P: -2 WV: 198 QRS: -58 QRSD: 142 T: 114 QT: 441 QTc: 470 Interpretive Statements Sinus rhythm Ventricular premature complex Probable left atrial enlargement Left bundle branch block Baseline wander in lead(s) V3 Compared to ECG 11/19/2018 22:33:47 First degree AV block no longer present Electronically Signed On 11-29-2018 13:49:03 DIRECTOR OF CAMPUS RECREATION by Messi Landin [email or web address] <ELECTRONICALLY SIGNED> By: Messi Landin MD, FAC 11/29/18 1349 1132 1132 Messi Landin MD, [facility] /EPI
== END 2018-11-28 14:31 | disposition home or self-care (01) ==
LOC: M.ERS 11:28
PROVIDERS: Emergency Medicine
DX: R06.00 Dyspnea, unspecified (principal); M81.0 Age-related osteoporosis without current pathological fracture; E03.9 Hypothyroidism, unspecified; J44.9 Chronic obstructive pulmonary disease, unspecified; I11.0 Hypertensive heart disease with heart failure; I50.22 Chronic systolic (congestive) heart failure; I73.9 Peripheral vascular disease, unspecified; Z88.8 Allergy status to other drugs, medicaments and biological substances; Z87.891 Personal history of nicotine dependence

== ENCOUNTER 2019-02-14 19:25 | Emergency (ER) | payer MEDICARE, OTHER ==
[~2019-02-14] VITALS: Ht 139.7 cm; Wt 39.9 kg
[2019-02-14] MEDS ORDERED: NORCO 5-325 TA1 EACH PO (21:02)
[2019-02-14 21:42] VITALS: BP 132/48
== END 2019-02-14 21:42 | disposition home or self-care (01) ==
LOC: M.ERS 19:25
DX: M54.5 Low back pain (principal); R10.2 Pelvic and perineal pain; E03.9 Hypothyroidism, unspecified; J44.9 Chronic obstructive pulmonary disease, unspecified; I11.0 Hypertensive heart disease with heart failure; I50.22 Chronic systolic (congestive) heart failure; Z87.891 Personal history of nicotine dependence; Z88.8 Allergy status to other drugs, medicaments and biological substances

== ENCOUNTER 2019-02-15 23:55 | Inpatient (IN) | payer MEDICARE, OTHER ==
[~2019-02-15] VITALS: Ht 139.7 cm; Wt 47.6 kg
[2019-02-15 23:56] VITALS: BP 108/43
[2019-02-16] VITALS (30 sets, daily range): BP systolic 87–127; BP diastolic 23–44
[2019-02-16] MEDS ORDERED: TIROSINT112 MCG (00:04)
[2019-02-16 00:48] LABS: INR 1.3; PROTIME 13.5 Seconds (9.20-11.50)
[2019-02-16 00:52] LABS: ABSOLUTE BASOPHILS 0.1 thou/uL (0.0-0.2); ABSOLUTE LYMPHOCYTES 1.5 thou/uL (0.8-5.3); ABSOLUTE NEUTROPHILS 10.3 thou/uL (1.6-8.1); BASOPHILS 0.5 %; EOSINOPHILS 0.1 %; HEMATOCRIT 40.3 % (37.0-47.0); HEMOGLOBIN 12.7 gm/dL (12.0-15.0); LYMPHOCYTES 11.8 %; MCH 31.4 pg (26.0-34.0); MCHC 31.4 g/dL (28.0-37.0); MONOCYTES 7.6 %; MPV 9.2 fl. (7.2-11.1); NUCLEATED RBCS 0 /100WBC; PLATELET COUNT* 169 thou/uL (150-400); RBC 4.03 mil/uL (4.20-5.00); RDW-CV 16.9 % (10.5-14.5); WBC 12.8 thou/uL (4.0-11.0)
[2019-02-16 01:02] LABS: ANION GAP 18 mmol/L (7-16); BUN 59 mg/dL (7-18); CALCIUM 9.2 mg/dL (8.5-10.1); CHLORIDE 108 mmol/L (98-107); CO2 12 mmol/L (21-32); CREATININE 2.7 mg/dL (0.6-1.3); GLUCOSE 79 mg/dL (70-99); SODIUM 138 mmol/L (136-145); TROPONIN-I LEVEL <0.06 ng/mL (<0.06)
[2019-02-16 01:05] LABS: ALBUMIN 3.7 g/dL (3.4-5.0); ALKALINE PHOSPHATASE 64 U/L (46-116); NT-PRO BRAIN NAT PEPTIDE 2005 pg/mL (<300); SGOT 32 U/L (15-37); SGPT 15 U/L (30-65); TOTAL BILIRUBIN 0.4 mg/dL (<0.1-1.0); TOTAL PROTEIN 6.8 g/dL (6.4-8.2)
[2019-02-16 01:08] LABS: POTASSIUM 6.3 mmol/L (3.5-5.1)
[2019-02-16 02:50] LABS: URINE BILIRUBIN NEGATIVE (Negative); URINE BLOOD NEGATIVE (Negative); URINE CLARITY CLEAR; URINE COLOR YELLOW; URINE GLUCOSE-RANDOM NEGATIVE (Negative); URINE KETONES NEGATIVE (Negative); URINE LEUKOCYTES-REFLEX NEGATIVE (Negative); URINE NITRITE-REFLEX NEGATIVE (Negative); URINE PROTEIN NEGATIVE (Negative); URINE SPECIFIC GRAVITY 1.025 (1.005-1.030); URINE UROBILINOGEN 0.2 E.U./dl (0.2-1.0)
[2019-02-16 04:28] LABS: POC CA IONIZED 5.1 mg/dL (4.5-5.3); POC CREATININE 2.4 mg/dL (0.6-1.3); POC HEMOGLOBIN 10.2 g/dL (12.0-17.0); POC POTASSIUM 3.8 mmol/L (3.5-4.9)
--- NOTE | 2019-02-16 10:04 | EKG ---
[place] [address] ELECTROCARDIOGRAM REPORT Name: YONATHAN MENDEZ Room: [address] ADM IN M.R.#: [id number] Admission: 02/16/19 Attend Phys: Danielle Benitez MD Discharge: Date of : 33 Report #: [id number] THIS REPORT FOR: //name// [facility] Test Date: 2019-02-16 Test Time: 00:14:15 Pat Name: YONATHAN MENDEZ Department: Room: [facility] Gender: F Home Management Supervisor: POORNIMA : 1935 Requested By: Tisha Martin Order Number: [id number] MD: Messi Landin Measurements Intervals [place] Rate: 68 P: 0 [place]: 306 QRS: -56 QRSD: 153 T: 112 QT: 467 QTc: 497 Interpretive Statements Sinus rhythm Prolonged [place] interval Left bundle branch block Baseline wander in lead(s) I Compared to ECG 11/28/2018 11:32:45 First degree AV block now present Ventricular premature complex(es) no longer present Electronically Signed On 02-16-2019 10:04:50 CDT by Messi Landin [email or web address] <ELECTRONICALLY SIGNED> By: Messi Landin MD, [facility] 02/16/19 1004 0014 0014 Messi Landin MD, [facility] /EPI
[2019-02-17 00:06] VITALS: BP 133/51
[2019-02-17 01:27] VITALS: BP 140/40
[2019-02-17 02:05] VITALS: BP 150/41
[2019-02-17 04:29] LABS: MCH 31.7 pg (26.0-34.0); MCHC 33.3 g/dL (28.0-37.0); MCV 95.2 fL (80.0-100.0); MPV 8.8 fl. (7.2-11.1); RBC 3.46 mil/uL (4.20-5.00); RDW-CV 15.7 % (10.5-14.5)
[2019-02-17 05:16] LABS: CALCIUM 8.2 mg/dL (8.5-10.1); CREATININE 2.2 mg/dL (0.6-1.3); MAGNESIUM 1.6 mg/dL (1.8-2.4); POTASSIUM 4.5 mmol/L (3.5-5.1)
[2019-02-17 06:42] VITALS: BP 118/40
[2019-02-18 04:05] LABS: ALBUMIN 2.6 g/dL (3.4-5.0); CALCIUM 7.6 mg/dL (8.5-10.1); CREATININE 1.7 mg/dL (0.6-1.3); PHOSPHORUS* 2.5 mg/dL (2.5-4.9); POTASSIUM 4.3 mmol/L (3.5-5.1)
[2019-02-18 08:00] VITALS: BP 121/44
--- NOTE | 2019-02-18 10:14 | CON ---
[address] [address] CONSULTATION Name: YONATHAN MENDEZ Room: [address] IN M.R.#: [id number] Admission: 02/16/19 Attend Phys: Danielle Benitez MD Discharge: Date of : 34 Report #: [id number] THIS REPORT FOR: //name// CC: Saw Benitez NEPHROLOGY CONSULTATION CONSULTING PHYSICIAN: Danielle Benitez M.D. REASON FOR CONSULTATION: Acute kidney injury. HISTORY OF PRESENT ILLNESS: An 83-year-old female who was admitted with altered mental status. No preexisting history of kidney disease. She is not able to provide any history. History is obtained through chart review and her daughter who is present at the bedside. She has had poor appetite for one day, but has significantly low blood pressures on presentation and was started on vasopressors after receiving intravenous fluids. Her creatinine on admission is 2.7; on 11/28/2018, her creatinine was 0.9. Meyer catheter was placed; she is making urine. REVIEW OF SYSTEMS: Constitutional, psych, heme, eyes, ENT, respiratory, cardiac, GI, , endocrine, all negative, except as documented above and as best as can be ascertained. PAST MEDICAL HISTORY: Peripheral vascular disease with history of right popliteal stenting in 2009, history of ruptured colon with ostomy, history of perforated peptic ulcer, history of kyphoplasty and vertebroplasty, history of osteoporosis, hypertension, hypothyroidism and COPD. SOCIAL HISTORY: Positive for tobacco. FAMILY HISTORY: Not pertinent in this 83-year-old female. CURRENT MEDICATIONS: Reviewed. PHYSICAL EXAMINATION: VITAL SIGNS: Blood pressure is 120/44, pulse 73, respirations 13 and temperature 36.1. GENERAL: In no acute distress. EYES: Closed. EARS: Externally normal. CARDIOVASCULAR: Regular rate. LUNGS: No crackles. ABDOMEN: Soft. MUSCULOSKELETAL: Nontender. No pitting edema. NEUROLOGIC: Somnolent, just [place] [address] CONSULTATION Name: YONATHAN MENDEZ Room: [address] IN [facility]#: [id number] Admission: 02/16/19 Attend Phys: Danielle Benitez MD Discharge: Date of : 34 Report #: [id number] LABORATORY DATA: White cell count 12.8, hemoglobin 12.7 and platelets 169,000. Sodium 141, potassium 3.8, chloride 118, bicarbonate 12, BUN 59, creatinine 2.7, glucose 79 and calcium 9.2. Albumin 3.7. ASSESSMENT AND PLAN: 1. Acute kidney injury/acute tubular necrosis in the setting of hypotension and shock, requiring vasopressors. Admission creatinine 2.7; 11/28/2018 creatinine 0.9. U/A unremarkable. CT scan, no hydronephrosis. She was also on lisinopril and Aldactone. 2. Metabolic acidosis with a CO2 of 12. 3. Hypertension. 4. Peripheral vascular disease with a history of right popliteal stent in 2009. 5. Chronic obstructive pulmonary disease. 6. Hyperkalemia on admission, with potassium at 6.3. PLAN: 1. Continue IV fluids, check venous blood gas to assess acid base status, may need to adjust IV fluids further. 2. Making urine. 3. Check lab again in the a.m. Thank you for requesting my opinion in the care and management of this patient. <ELECTRONICALLY SIGNED> By: Fred Hood MD 02/18/19 1014 [id number] [id number] Hood MD /nt
[2019-02-18 12:00] VITALS: BP 113/41
[2019-02-18 14:00] VITALS: BP 123/41
== END 2019-02-18 16:25 | disposition home or self-care (01) | DRG 915 ==
LOC: M.ERS 23:55 → M.TBA-ER 02-16 02:16 → M.ICU 02-16 07:36
PROVIDERS: Emergency Medicine; Internal Medicine; Internal Medicine Nephrology; ADMIT Family Medicine
PROC: 02H633Z Insertion of Infusion Device into Right Atrium, Percutaneous Approach (ICD-10-PCS; principal; 2019-02-16)
DX: T88.6XXA Anaphylactic reaction due to adverse effect of correct drug or medicament properly administered, initial encounter (principal); G92 Toxic encephalopathy; N17.0 Acute kidney failure with tubular necrosis; E87.2 Acidosis; M48.50XA Collapsed vertebra, not elsewhere classified, site unspecified, initial encounter for fracture; I50.40 Unspecified combined systolic (congestive) and diastolic (congestive) heart failure; I13.0 Hypertensive heart and chronic kidney disease with heart failure and stage 1 through stage 4 chronic kidney disease, or unspecified chronic kidney disease; M81.0 Age-related osteoporosis without current pathological fracture; E87.5 Hyperkalemia; I95.9 Hypotension, unspecified; G89.29 Other chronic pain; M54.9 Dorsalgia, unspecified; Z82.49 Family history of ischemic heart disease and other diseases of the circulatory system; F17.210 Nicotine dependence, cigarettes, uncomplicated; N18.3 Chronic kidney disease, stage 3 (moderate); I35.1 Nonrheumatic aortic (valve) insufficiency; K80.20 Calculus of gallbladder without cholecystitis without obstruction; I71.4 Abdominal aortic aneurysm, without rupture; M41.9 Scoliosis, unspecified; T40.2X5A Adverse effect of other opioids, initial encounter; K27.9 Peptic ulcer, site unspecified, unspecified as acute or chronic, without hemorrhage or perforation; I73.9 Peripheral vascular disease, unspecified; E03.9 Hypothyroidism, unspecified; J44.9 Chronic obstructive pulmonary disease, unspecified; Z95.820 Peripheral vascular angioplasty status with implants and grafts; Z93.3 Colostomy status; Z93.2 Ileostomy status; Z88.8 Allergy status to other drugs, medicaments and biological substances; Z88.6 Allergy status to analgesic agent; Y92.89 Other specified places as the place of occurrence of the external cause

== ENCOUNTER 2019-05-27 01:07 | Inpatient (IN) | payer MEDICARE, OTHER ==
[~2019-05-27] VITALS: Ht 139.7 cm; Wt 47.2 kg
--- NOTE | ~2019-05-27 | EEG ---
[address] [address] EEG STUDY REPORT Name: YONATHAN MENDEZ Room: [address] IN M.R.#: [id number] Admission: 05/27/19 Attend Phys: Omer Amaro Discharge: Date of : 34 Report #: [id number] THIS REPORT FOR: //name// CC: Saw Paredes DATE OF SERVICE: 05/27/2019 This patient is being evaluated for altered mental status. EEG was done by placing the electrode by standard 10-20 system of electrode placement. Both referential and sequential montages were used for recording. Background activity is about 7-8 Hz and 30 microvolt. It is a symmetrical activity. The patient became drowsy and that is associated with bilateral slowing and vertex sharp waves. Photic stimulation was unremarkable. Throughout the record, no active epileptiform activity was noticed. IMPRESSION: Moderately abnormal EEG because the patient's EEG is intermixed with theta range slowing on both sides. That is a nonspecific abnormality, which can occur with dementia, encephalopathy, effect of psychotropic medication, etc. Clinical correlation is recommended. By: [id number] 1933Pjhoan Streeter MD /nt
[~2019-05-27 01:07] MED LIST changes: +TIROSINT112 MCG
[2019-05-27 01:12] VITALS: BP 126/47
[2019-05-27] MEDS ORDERED: ANACIN 400-321 EACH PO (01:20)
[2019-05-27 01:39] LABS: ABSOLUTE BASOPHILS 0.1 thou/uL (0.0-0.2); ABSOLUTE EOSINOPHILS 0.2 thou/uL (0.0-0.7); ABSOLUTE LYMPHOCYTES 1.8 thou/uL (0.8-5.3); ABSOLUTE MONOCYTES 0.5 thou/uL (0.0-1.2); ABSOLUTE NEUTROPHILS 3.3 thou/uL (1.6-8.1); BASOPHILS 1.3 %; EOSINOPHILS 2.8 %; HEMATOCRIT 36.3 % (37.0-47.0); LYMPHOCYTES 30.6 %; MCH 29.9 pg (26.0-34.0); MCV 90.6 fL (80.0-100.0); MONOCYTES 8.9 %; MPV 8.6 fl. (7.2-11.1); NUCLEATED RBCS 0 /100WBC; PLATELET COUNT* 186 thou/uL (150-400); POLYS 56.4 %; RBC 4.01 mil/uL (4.20-5.00); RDW-CV 14.1 % (10.5-14.5); WBC 5.9 thou/uL (4.0-11.0)
[2019-05-27 01:48] LABS: INR 1.2; PROTIME 12.1 Seconds (9.20-11.50)
[2019-05-27 01:49] LABS: CALCIUM 9.1 mg/dL (8.5-10.1); CREATININE 1.7 mg/dL (0.6-1.3)
[2019-05-27 01:51] LABS: POTASSIUM 2.6 mmol/L (3.5-5.1)
[2019-05-27 01:59] LABS: ALBUMIN 3.2 g/dL (3.4-5.0); MAGNESIUM 1.8 mg/dL (1.8-2.4); TOTAL BILIRUBIN 0.3 mg/dL (<0.1-1.0); TOTAL PROTEIN 5.9 g/dL (6.4-8.2); TROPONIN-I LEVEL 0.08 ng/mL (<0.06)
[2019-05-27 03:35] VITALS: BP 114/41
[2019-05-27 04:00] VITALS: BP 95/58
[2019-05-27 08:00] VITALS: BP 105/38
[2019-05-27 08:20] LABS: TROPONIN-I LEVEL 0.07 ng/mL (<0.06)
[2019-05-27 08:51] LABS: POTASSIUM 3.7 mmol/L (3.5-5.1)
[2019-05-27 12:11] VITALS: BP 103/41
--- NOTE | 2019-05-27 16:28 | 2DMMODE ---
[place] [address] 2 D/M-MODE ECHOCARDIOGRAM Name: YONATHAN MENDEZ Room: [address] ADM IN [facility]#: [id number] Admission: 05/27/19 Attend Phys: Adrián Paredes Discharge: Date of : 34 Date of Service: 05/27/19 1627 Report #: [id number] THIS REPORT FOR: //name// APPROVED REPORT Study performed: 05/27/2019 14:06:21 EXAM: Comprehensive 2D, Doppler, and color-flow Echocardiogram Patient Location: In-Patient Room #: 221 Status: routine BSA: 1.24 HR: 56 bpm BP: 103/41 mmHg Rhythm: NSR Other Information Study Quality: Good Indications Hypotension Chest Pain 2D Dimensions IVSd: 9.50 (7-11mm) LVOT Diam: 19.97 (18-24mm) LVDd: 46.95 mm PWd: 7.75 (7-11mm) Ascending Ao: 29.45 (22-36mm) LVDs: 34.63 (25-40mm) Aortic Root: 29.74 mm Volumes Left Atrial Volume (Systole) LA ESV Index: 47.00 mL/m2 Aortic Valve AoV Peak Ernesto.: 1.98 m/s AO Peak Gr.: 15.68 mmHg LVOT Max P.15 mmHg AO Mean Gr.: 8.79 mmHg LVOT Mean P.75 mmHg LVOT Max V: 1.34 m/s AO V2 VTI: 40.67 cm LVOT Mean V: 0.90 m/s RICHA (VTI): 2.45 cm2 LVOT V1 VTI: 31.80 cm Mitral Valve E/A Ratio: 0.80 MV Decel. Time: 280.93 [place] [address] 2 D/M-MODE ECHOCARDIOGRAM Name: YONATHAN MENDEZ Room: [address] IN .R.#: [id number] Admission: 05/27/19 Attend Phys: Adrián Paredes Discharge: Date of : 34 Date of Service: 05/27/19 1627 Report #: [id number] MV E Max Ernesto.: 0.83 m/s MV PHT: 81.47 ms MVA (PHT): 2.70 cm2 TDI E/Lateral E': 11.86 E/Medial E': 16.60 Medial E' Ernesto.: 0.05 m/s Lateral E' Ernesto.: 0.07 m/s Pulmonary Valve PV Peak Ernesto.: 0.98 m/s PV Peak Gr.: 3.85 mmHg Left Ventricle The left ventricle is normal size. There is left ventricular systolic is dyssynergy consistent with underlying bundle branch block. Mild basal septal hypertrophy is present. Left ventricular systolic function is normal. LVEF is 55-60%. Grade I - abnormal relaxation pattern. Right Ventricle The right ventricle is normal size. The right ventricular systolic function is normal. Atria Left atrium is moderately dilated. The right atrium size is normal. Aortic Valve Mild aortic valve sclerosis. Moderate aortic regurgitation. There is no aortic valvular stenosis. Mitral Valve The mitral valve is normal in structure. There is no mitral valve regurgitation noted. No evidence of mitral valve stenosis. Tricuspid Valve The tricuspid valve is normal in structure. Unable to assess PA pressure. Trace tricuspid regurgitation. Pulmonic Valve The pulmonary valve is normal in structure. There is no pulmonic valvular regurgitation. Great Vessels The aortic root is normal in size. IVC is normal in size and collapses >50% [place] [address] 2 D/M-MODE ECHOCARDIOGRAM Name: YONATHAN MENDEZ Room: [address] IN [facility]#: [id number] Admission: 05/27/19 Attend Phys: Adrián Paredes Discharge: Date of : 34 Date of Service: 05/27/19 1627 Report #: [id number] Pericardium There is no pericardial effusion. <Conclusion> The left ventricle is normal size. The left ventricle is normal size. Mild basal septal hypertrophy is present. Left ventricular systolic function is normal. LVEF is 55-60%. Grade I - abnormal relaxation pattern. Left atrium is moderately dilated. Mild aortic valve sclerosis. Moderate aortic regurgitation. Unable to assess PA pressure. Trace tricuspid regurgitation. IVC is normal in size and collapses >50% with inspiration. <ELECTRONICALLY SIGNED> By: Som Hendrickson MD, FACC 05/27/19 1627 162 162 Som Hendrickson MD, FACC /INF
--- NOTE | 2019-05-27 17:01 | EKG ---
[place] [address] ELECTROCARDIOGRAM REPORT Name: YONATHAN MENDEZ Room: [address] ADM IN .R.#: [id number] Admission: 05/27/19 Attend Phys: Omer Amaro Discharge: Date of : 34 Report #: [id number] THIS REPORT FOR: //name// [facility] ED Test Date: 2019-05-27 Test Time: 01:22:13 Pat Name: YONATHAN MENDEZ Department: Room: [facility] Gender: F Supervisor [employer]: ION : 1935 Requested By: Abner Law Order Number: [id number] MD: Som Hendrickson Measurements Intervals [place] Rate: 56 P: 0 [place]: 297 QRS: -58 QRSD: 161 T: 113 QT: 503 QTc: 486 Interpretive Statements Sinus rhythm Prolonged WV interval Left bundle branch block Baseline wander in lead(s) V2 Compared to ECG 02/16/2019 00:14:15 No significant changes Electronically Signed On 05-27-2019 17:01:05 CDT by Som Hendrickson [email or web address] <ELECTRONICALLY SIGNED> By: Som Hendrickson MD, FACC 05/27/19 1701 0122 0122 Som Hendrickson MD, [facility] /EPI
[2019-05-27 20:00] VITALS: BP 116/43
[2019-05-28] VITALS: BP 170/93
[2019-05-28 02:25] LABS: URINE BILIRUBIN NEGATIVE (Negative); URINE BLOOD NEGATIVE (Negative); URINE CLARITY CLEAR; URINE COLOR YELLOW; URINE GLUCOSE-RANDOM NEGATIVE (Negative); URINE KETONES NEGATIVE (Negative); URINE LEUKOCYTES-REFLEX TRACE (Negative); URINE NITRITE-REFLEX NEGATIVE (Negative); URINE PROTEIN NEGATIVE (Negative); URINE UROBILINOGEN 0.2 E.U./dl (0.2-1.0)
[2019-05-28 02:52] LABS: BACTERIA-REFLEX >30 Many /HPF (None Seen); CASTS None Seen /LPF (None Seen); CRYSTALS None Seen /LPF (None Seen); MUCUS 0-3 Light strn/LPF (None Seen); SQUAMOUS 0-3 Few /LPF (0-3); URINE RBC 3-10 Few /HPF (0-2); URINE WBC-REFLEX >25 Many /HPF (0-5); WBC CLUMPS Few (None Seen)
[2019-05-28 04:54] VITALS: BP 102/31
[2019-05-28 08:00] VITALS: BP 131/72
[2019-05-28 11:43] VITALS: BP 139/43
[2019-05-28 15:26] VITALS: BP 105/40
[2019-05-28 20:00] VITALS: BP 114/42
[2019-05-29] VITALS (7 sets, daily range): BP systolic 122–153; BP diastolic 42–62
[2019-05-29 04:54] LABS: ABSOLUTE BASOPHILS 0.1 thou/uL (0.0-0.2); ABSOLUTE EOSINOPHILS 0.4 thou/uL (0.0-0.7); ABSOLUTE LYMPHOCYTES 2.1 thou/uL (0.8-5.3); ABSOLUTE MONOCYTES 0.7 thou/uL (0.0-1.2); ABSOLUTE NEUTROPHILS 3.2 thou/uL (1.6-8.1); BASOPHILS 1.1 %; CALCIUM 8.2 mg/dL (8.5-10.1); CREATININE 1.1 mg/dL (0.6-1.3); EOSINOPHILS 5.7 %; HEMATOCRIT 30.5 % (37.0-47.0); LYMPHOCYTES 32.9 %; MCH 29.7 pg (26.0-34.0); MCHC 32.2 g/dL (28.0-37.0); MCV 92.2 fL (80.0-100.0); MONOCYTES 10.6 %; MPV 8.8 fl. (7.2-11.1); NUCLEATED RBCS 0 /100WBC; PLATELET COUNT* 154 thou/uL (150-400); POLYS 49.7 %; POTASSIUM 4.6 mmol/L (3.5-5.1); RBC 3.31 mil/uL (4.20-5.00); RDW-CV 14.1 % (10.5-14.5); WBC 6.5 thou/uL (4.0-11.0)
[2019-05-29 05:04] LABS: HEMOGLOBIN 9.8 gm/dL (12.0-15.0)
--- NOTE | 2019-05-29 09:39 | CON ---
[address] [address] CONSULTATION Name: YONATHAN MENDEZ Room: [address] IN M.R.#: [id number] Admission: 05/27/19 Attend Phys: Omer Amaro Discharge: Date of : 34 Report #: [id number] THIS REPORT FOR: //name// CC: Saw Paredes DATE OF SERVICE: 05/28/2019 NEUROLOGY CONSULT HISTORY OF PRESENT ILLNESS: The patient is an 83-year-old female who provided very good history. Her is also in the room. The patient's states that she was to go for a cardioversion on Friday, but because she had not been taking her medication properly, her potassium was too low and the procedure had to be canceled. The patient had been there all day. She had not eaten and she was sent home. The night before admission, the patient only got 4 hours of sleep, so the following day, she was very tired. Her family became concerned about her and she was brought to the Emergency Room. Her lab work showed an initial potassium of 2.6. The patient also has a tremor of the hands. Apparently, this began with the low potassium level. The patient states to her knowledge, no one in her family ever had shaky hands, but the patient also appears to have a tremor of her voice. The patient does state that today, she is feeling much better. PAST MEDICAL HISTORY: Osteoporosis, perforated ulcer, ruptured colon, hypertension, peripheral artery disease, hypothyroidism, cardiomyopathy and chronic obstructive pulmonary disease. PAST SURGICAL HISTORY: Kyphoplasty and vertebroplasty, gastric surgery with colostomy and ileostomy revision, spinal fusion, right popliteal angioplasty and stent. MEDICATIONS: Calcium, Coreg 25 mg b.i.d., atorvastatin 20 mg daily, levothyroxine, B12 injections monthly and pantoprazole 40 mg b.i.d. ALLERGIES: CILASTATIN, IMIPENEM, ERTAPENEM AND HYDROCODONE. VITAL SIGNS: Temperature is 36.6, pulse rate 57, respiratory rate 18, blood pressure 139/43 and bedside pulse oximetry 93% on oxygen. LABORATORY WORK: Hematology: White blood cell count 5.9, hemoglobin 12, hematocrit 36.3, MCV 90.6 and platelet count 186,000. Chemistry: Sodium 145, potassium 3.7 with an initial potassium of 2.6, chloride 106, carbon dioxide 26, BUN 27, creatinine 1.7 and GFR 29. [place] [address] CONSULTATION Name: YONATHAN MENDEZ Room: [address] IN [facility]#: [id number] Admission: 05/27/19 Attend Phys: Omer Amaro Discharge: Date of : 34 Report #: [id number] IMAGING: Carotid ultrasound demonstrates moderate plaque, but no hemodynamically significant stenosis. NEUROLOGIC: Cranial nerves 2-12 are grossly intact. The patient has a tremor of the voice. Motor exam demonstrates symmetrical strength in all 4 extremities with tone and bulk normal. Reflexes are trace throughout. Plantar responses are flexor. Coordination reveals intact csiuko-on-[id number] with the arms outstretched, the patient has a supination-pronation tremor present. IMPRESSION: This patient has returned to baseline. I suspect her initial altered mental status is multifactorial related to hypocalcemia, lack of sleep. PLAN: The patient may have essential tremor, but this is an incidental finding at this point. I have ordered a B12 and thyroid to make certain these labs are normal. I thank you for your kind referral of the patient. We will continue to follow her with you. <ELECTRONICALLY SIGNED> By: Alma Riggins DO 05/29/19 0939 1220 [id number] Riggins DO /nt
[2019-05-29] MEDS ORDERED: LEVAQUIN 500 M500 M2 PO (10:58)
[2019-05-29] MEDS ORDERED: GABAPENTIN 100100 MG PO (11:29)
== END 2019-05-29 16:30 | disposition home health service (06) | DRG 682 ==
LOC: M.ERS 01:07 → M.TBA-ER 02:18 → M.2W 02:18
PROVIDERS: Emergency Medicine; ADMIT Internal Medicine
DX: N17.0 Acute kidney failure with tubular necrosis (principal); G93.41 Metabolic encephalopathy; E44.0 Moderate protein-calorie malnutrition; I50.42 Chronic combined systolic (congestive) and diastolic (congestive) heart failure; I42.9 Cardiomyopathy, unspecified; N39.0 Urinary tract infection, site not specified; E87.6 Hypokalemia; I73.9 Peripheral vascular disease, unspecified; E03.9 Hypothyroidism, unspecified; I11.0 Hypertensive heart disease with heart failure; J44.9 Chronic obstructive pulmonary disease, unspecified; M81.0 Age-related osteoporosis without current pathological fracture; Z87.11 Personal history of peptic ulcer disease; Z93.3 Colostomy status; Z93.2 Ileostomy status; Z95.820 Peripheral vascular angioplasty status with implants and grafts; Z88.6 Allergy status to analgesic agent; Z88.8 Allergy status to other drugs, medicaments and biological substances; Z87.891 Personal history of nicotine dependence; Z79.82 Long term (current) use of aspirin; Z79.899 Other long term (current) drug therapy; Z68.24 Body mass index [BMI] 24.0-24.9, adult

== ENCOUNTER 2019-06-09 23:48 | Inpatient (IN) | payer MEDICARE, OTHER ==
[~2019-06-09] VITALS: Ht 139.7 cm; Wt 42.2 kg
[~2019-06-09 23:48] MED LIST changes: +GABAPENTIN 100100 MG PO; +LEVAQUIN 500 M500 M2 PO
[2019-06-09 23:51] VITALS: BP 125/58
[2019-06-10 00:23] LABS: HEMATOCRIT 34.1 % (37.0-47.0); HEMOGLOBIN 11.1 gm/dL (12.0-15.0); MCH 29.7 pg (26.0-34.0); MCHC 32.6 g/dL (28.0-37.0); MPV 8.1 fl. (7.2-11.1); NUCLEATED RBCS 0 /100WBC; PLATELET COUNT* 215 thou/uL (150-400); RBC 3.74 mil/uL (4.20-5.00); RDW-CV 14.7 % (10.5-14.5); WBC 8.6 thou/uL (4.0-11.0)
[2019-06-10 00:42] LABS: CALCIUM 8.8 mg/dL (8.5-10.1); CREATININE 1.1 mg/dL (0.6-1.3); POTASSIUM 4.5 mmol/L (3.5-5.1)
[2019-06-10 00:55] LABS: ALBUMIN 2.9 g/dL (3.4-5.0); MAGNESIUM 1.6 mg/dL (1.8-2.4); TOTAL BILIRUBIN 0.2 mg/dL (<0.1-1.0); TOTAL PROTEIN 5.4 g/dL (6.4-8.2); TROPONIN-I LEVEL 0.1 ng/mL (<0.06)
[2019-06-10 01:35] LABS: ABSOLUTE EOSINOPHILS 0.4 thou/uL (0.0-0.7); ABSOLUTE LYMPHOCYTES 2.4 thou/uL (0.8-5.3); ABSOLUTE MONOCYTES 0.9 thou/uL (0.0-1.2); ABSOLUTE NEUTROPHILS 4.9 thou/uL (1.6-8.1); ANISOCYTOSIS 1+; PLATELET ESTIMATE ADEQUATE; TOXIC GRANULATION 2+
[2019-06-10 02:30] VITALS: BP 120/49
[2019-06-10 03:30] VITALS: BP 121/45
--- NOTE | 2019-06-10 06:14 | NUR ---
RECEIVED REPORT FROM EDRN. PT TRANSFERRED TO 208. PT A&OX4. VSS. REWRITER IN PLACE. ADMISSION HISTORY & PHYSICAL ASSESSMENT COMPLETED AND CHARTED. PT ON O2 AT 2L. PT TRACING SR 1ST DEG/BBB ON TELE. PT UP ADLIB TO RESTROOM. FAMILY AT BEDSIDE. INSTRUCTED ON NPO POST MIDNIGHT FOR CARDIOLOGY CONSULT. COMMUNICATES UNDERSTANDING. DENIES ANY PAIN OR SOA. CALL LIGHT WITHIN REACH.
[2019-06-10 08:00] VITALS: BP 125/44
--- NOTE | 2019-06-10 09:44 | NUR ---
Pt is A&O. Resides at home alone. Independent, cooks and cleans, dtr provides transportation. No DME. Pt is current with [facility]. No hx of SNF. Goal is home at sd, resumption orders will need to be faxed to [facility] [phone]
[2019-06-10 12:00] VITALS: BP 115/43
--- NOTE | 2019-06-10 16:35 | EKG ---
[place] [address] ELECTROCARDIOGRAM REPORT Name: YONATHAN MENDEZ Room: [address] ADM IN M.R.#: [id number] Admission: 06/10/19 Attend Phys: Kayli Velásquez MD Discharge: Date of : 34 Report #: [id number] THIS REPORT FOR: //name// [facility] ED Test Date: 2019-06-09 Test Time: 23:56:36 Pat Name: YONATHAN MENDEZ Department: Room: [facility] Gender: F [employer] Dean: : 1935 Requested By: Joel Rose Order Number: [id number] MD: Som Hendrickson Measurements Intervals [place] Rate: 75 P: -31 [place]: 247 QRS: -58 QRSD: 131 T: 105 QT: 406 QTc: 454 Interpretive Statements Sinus rhythm Prolonged [place] interval Left bundle branch block Compared to ECG 05/27/2019 01:22:13 No significant changes Electronically Signed On 06-10-2019 16:35:36 CDT by Som Hendrickson [email or web address] <ELECTRONICALLY SIGNED> By: Som Hendrickson MD, [facility] 06/10/19 1635 2356 [id number] Som Hendrickson MD, [facility] /EPI
[2019-06-10 16:40] VITALS: BP 127/46
[2019-06-10 20:00] VITALS: BP 123/41
[2019-06-11] VITALS: BP 109/43
[2019-06-11 04:00] VITALS: BP 118/48
[2019-06-11 04:57] LABS: CALCIUM 8.5 mg/dL (8.5-10.1); CREATININE 1.4 mg/dL (0.6-1.3); MAGNESIUM 1.7 mg/dL (1.8-2.4); POTASSIUM 3.5 mmol/L (3.5-5.1)
--- NOTE | 2019-06-11 06:08 | NUR ---
ASSUMED CARE OF PT AFTER REPORT AT 1930. PT A&OX4. VSS. PHYSICAL ASSESSMENT COMPLETED AND CHARTED. PT ON O2 AT 2L. PT TRACING SR/1ST DEG/BBB ON TELE. PT UP ADLIB TO RESTROOM. PT AND FAMILY WAS CONCERNED LAST NIGHT REGARDING THROWING UP POTASSIUM TAB AFTER INTAKE. REASSURED FAMILY AND PT THAT POTASSIUM IS WITHIN NORMAL LIMIT AND ONLY GIVEN PRECAUTION IN GIVING LASIX. PT COMPLAINED OF BACK PAIN- MEDS GIVEN PER JAN. ABLE TO SLEEP WELL ON BED. CALL LIGHT WITHIN REACH.
[2019-06-11 08:00] VITALS: BP 103/35
--- NOTE | 2019-06-11 10:54 | NUR ---
ASSUMED CARE OF PATIENT THIS AM AT 0730. PATIENT IS ALERT AND ORIENTED X 4. SHE DENIES PAIN AND DISCOMFORT. SHE IS TAKING HER DIET WELL. TELE SHOWS SR WITH 1DAVB AND BBB. PATIENT BELIEVES THAT SHE WILL BE GOING HOME TODAY. HER BP WAS LOW SO COREG HELD THIS AM. WILL CONTINUE TO MONITOR VS AND ASSESSMENTS.
[2019-06-11 12:05] VITALS: BP 103/49
[2019-06-11 15:38] VITALS: BP 105/38
[2019-06-11 20:00] VITALS: BP 111/42
[2019-06-12] VITALS: BP 110/38
[2019-06-12 04:00] VITALS: BP 126/38
--- NOTE | 2019-06-12 05:16 | NUR ---
ASSUMED CARE OF PT AFTER REPORT AT 1930. PT A&OX4. VSS. PHYSICAL ASSESSMENT COMPLETED AND CHARTED. PT TRACING SR/SB/1ST DEG/BBB ON TELE. PT UPADLIB TO RESTROOM. PT COMPLAINED OF BACK PAIN- MEDS GIVEN PER JAN. PT O2 SAT 88-89%. HOOKED PT BACK TO O2 AT 2L NC. PT ABLE TO SLEEP WELL ON JAQUELIN. CALL LIGHT WITHIN REACH.
[2019-06-12 08:00] VITALS: BP 123/44
--- NOTE | 2019-06-12 10:04 | NUR ---
ASSUMED CARE OF PATIENT THIS AM AT 0730. PATIENT IS ALERT AND ORIENTED X 4. SHE IS DENING PAIN THIS AM. PATIENT SAYS THAT SHE IS READY TO GO HOME. SHE IS TAKING HER DIET WELL. SHE IS UP TO THE BR WITH STANDBY ASSIST. TELE SHOWS CONTINUED SR WITH BBB 1DAVB AND PACS. WILL CONTINUE TO MONITOR.
[2019-06-12] MEDS ORDERED: KLOR-CON 1010 MEQ PO (10:33)
[2019-06-12] MEDS ORDERED: LASIX 20 MG TAB20 MG PO (10:33)
[2019-06-12] MEDS ORDERED: CARVEDILOL3.125 MG PO (10:33)
[2019-06-12 11:30] VITALS: BP 110/60
[2019-06-12 13:22] LABS: CALCIUM 8.6 mg/dL (8.5-10.1); CREATININE 1.2 mg/dL (0.6-1.3); POTASSIUM 4.4 mmol/L (3.5-5.1)
--- NOTE | 2019-06-12 14:42 | NUR ---
Pt to dc home today with [facility] of [facility]. VICKY faxed orders/dc summary to [facility] at fax [phone].
== END 2019-06-12 15:01 | disposition home health service (06) | DRG 291 ==
LOC: M.ERS 23:48 → M.2W 06-10 01:18 → M.TBA-ER 06-10 01:18 → M.2W 06-10 02:11
PROVIDERS: Emergency Medicine Emergency Medical Services; Internal Medicine; ADMIT Internal Medicine
DX: I13.0 Hypertensive heart and chronic kidney disease with heart failure and stage 1 through stage 4 chronic kidney disease, or unspecified chronic kidney disease (principal); I50.43 Acute on chronic combined systolic (congestive) and diastolic (congestive) heart failure; N17.0 Acute kidney failure with tubular necrosis; J96.01 Acute respiratory failure with hypoxia; N18.3 Chronic kidney disease, stage 3 (moderate); M81.0 Age-related osteoporosis without current pathological fracture; I73.9 Peripheral vascular disease, unspecified; F17.200 Nicotine dependence, unspecified, uncomplicated; E03.9 Hypothyroidism, unspecified; I35.1 Nonrheumatic aortic (valve) insufficiency; I42.9 Cardiomyopathy, unspecified; I25.10 Atherosclerotic heart disease of native coronary artery without angina pectoris; E83.42 Hypomagnesemia; Z93.3 Colostomy status; Z93.2 Ileostomy status; Z95.820 Peripheral vascular angioplasty status with implants and grafts; Z79.899 Other long term (current) drug therapy; Z88.8 Allergy status to other drugs, medicaments and biological substances; Z88.6 Allergy status to analgesic agent; Z87.11 Personal history of peptic ulcer disease; Z87.440 Personal history of urinary (tract) infections

== ENCOUNTER 2019-06-18 15:39 | Inpatient (IN) | payer MEDICARE, OTHER ==
[~2019-06-18] VITALS: Ht 139.7 cm; Wt 46.1 kg
[~2019-06-18 15:39] MED LIST changes: +CARVEDILOL3.125 MG PO; -TIROSINT112 MCG; +TIROSINT112 MCG PO
[2019-06-18 19:51] LABS: ABSOLUTE BASOPHILS 0.1 thou/uL (0.0-0.2); ABSOLUTE LYMPHOCYTES 0.9 thou/uL (0.8-5.3); ABSOLUTE MONOCYTES 0.6 thou/uL (0.0-1.2); ABSOLUTE NEUTROPHILS 8.6 thou/uL (1.6-8.1); BASOPHILS 0.7 %; EOSINOPHILS 0.4 %; HEMATOCRIT 34.6 % (37.0-47.0); HEMOGLOBIN 11.1 gm/dL (12.0-15.0); LYMPHOCYTES 8.5 %; MCH 29.6 pg (26.0-34.0); MCV 92.5 fL (80.0-100.0); MONOCYTES 5.6 %; MPV 9.9 fl. (7.2-11.1); NUCLEATED RBCS 0 /100WBC; PLATELET COUNT* 204 thou/uL (150-400); POLYS 84.8 %; RBC 3.74 mil/uL (4.20-5.00); RDW-CV 15.3 % (10.5-14.5); WBC 10.2 thou/uL (4.0-11.0)
[2019-06-18 20:38] LABS: CALCIUM 8.3 mg/dL (8.5-10.1); CREATININE 1.2 mg/dL (0.6-1.3); INR 1.1; POTASSIUM 3.7 mmol/L (3.5-5.1); PROTIME 11.7 Seconds (9.20-11.50)
[2019-06-18 20:49] LABS: ALBUMIN 3.1 g/dL (3.4-5.0); TOTAL BILIRUBIN 0.3 mg/dL (<0.1-1.0); TOTAL PROTEIN 6.3 g/dL (6.4-8.2); TROPONIN-I LEVEL 0.14 ng/mL (<0.06)
[2019-06-18 21:05] VITALS: BP 115/60
[2019-06-18 21:30] VITALS: BP 130/54
[2019-06-19] VITALS: BP 129/55
[2019-06-19 04:00] VITALS: BP 108/51
[2019-06-19 08:11] VITALS: BP 113/54
[2019-06-19 15:40] VITALS: BP 133/59
[2019-06-19 19:40] VITALS: BP 147/75
[2019-06-20] VITALS: BP 130/60
[2019-06-20 04:00] VITALS: BP 134/55
[2019-06-20 08:00] VITALS: BP 146/56
[2019-06-20 11:31] VITALS: BP 125/55
[2019-06-21] VITALS: BP 147/52
[2019-06-21 08:56] VITALS: BP 130/56
[2019-06-21 08:56] LABS: MCH 29.9 pg (26.0-34.0); NUCLEATED RBCS 0 /100WBC
[2019-06-21 09:02] LABS: ABSOLUTE BASOPHILS 0.1 thou/uL (0.0-0.2); ABSOLUTE MONOCYTES 1.3 thou/uL (0.0-1.2); ABSOLUTE NEUTROPHILS 13.3 thou/uL (1.6-8.1); BASOPHILS 0.6 %; HEMATOCRIT 36.2 % (37.0-47.0); HEMOGLOBIN 11.8 gm/dL (12.0-15.0); LYMPHOCYTES 6.3 %; MCHC 32.7 g/dL (28.0-37.0); MCV 91.5 fL (80.0-100.0); MONOCYTES 8.4 %; MPV 9.1 fl. (7.2-11.1); PLATELET COUNT* 209 thou/uL (150-400); POLYS 84.7 %; RBC 3.95 mil/uL (4.20-5.00); RDW-CV 15.4 % (10.5-14.5); WBC 15.8 thou/uL (4.0-11.0)
[2019-06-21 09:09] LABS: ALBUMIN 2.5 g/dL (3.4-5.0); CALCIUM 8.6 mg/dL (8.5-10.1); CREATININE 1.4 mg/dL (0.6-1.3); POTASSIUM 4.2 mmol/L (3.5-5.1); TOTAL BILIRUBIN 0.8 mg/dL (<0.1-1.0)
--- NOTE | 2019-06-21 15:46 | EKG ---
[place] [address] ELECTROCARDIOGRAM REPORT Name: ANDREAKARLENEALISON Room: [address] ADM IN M.R.#: [id number] Admission: 06/18/19 Attend Phys: Omer Amaro Discharge: Date of : 34 Report #: [id number] THIS REPORT FOR: //name// [facility] ED Test Date: 2019-06-18 Test Time: 19:15:14 Pat Name: YONATHAN MENDEZ Department: Room: [address] Gender: F Rn Unit Manager: RACHELE : 1935 Requested By: Tisha Martin Order Number: [id number] MD: Joseph Edmondson Measurements Intervals [place] Rate: 78 P: 62 [place]: 233 QRS: -65 QRSD: 145 T: 95 QT: 436 QTc: 497 Interpretive Statements Sinus rhythm first degree av block left axis LBBB Compared to ECG 06/09/2019 23:56:36 no change Electronically Signed On 06-21-2019 15:46:30 CDT by Joseph Edmondson [email or web address] <ELECTRONICALLY SIGNED> By: Joseph Edmondson MD, [facility] 06/21/19 1546 14 14 Joseph Edmondson MD, [facility] /EPI
[2019-06-21 20:00] VITALS: BP 104/44
[2019-06-22 00:20] VITALS: BP 109/46
[2019-06-22 03:38] VITALS: BP 110/41
[2019-06-22 03:38] LABS: CALCIUM 8.5 mg/dL (8.5-10.1); CREATININE 2.1 mg/dL (0.6-1.3); POTASSIUM 4.6 mmol/L (3.5-5.1)
[2019-06-22 03:51] LABS: HEMOGLOBIN 11.2 gm/dL (12.0-15.0); MCH 28.8 pg (26.0-34.0); MCHC 31.2 g/dL (28.0-37.0); MCV 92.2 fL (80.0-100.0); MPV 8.5 fl. (7.2-11.1); NUCLEATED RBCS 0 /100WBC; PLATELET COUNT* 200 thou/uL (150-400); RBC 3.91 mil/uL (4.20-5.00); RDW-CV 15.9 % (10.5-14.5); WBC 22.8 thou/uL (4.0-11.0)
[2019-06-22 05:00] LABS: ABSOLUTE LYMPHOCYTES 0.7 thou/uL (0.8-5.3); ABSOLUTE MONOCYTES 1.8 thou/uL (0.0-1.2); ABSOLUTE NEUTROPHILS 20.3 thou/uL (1.6-8.1); PLATELET ESTIMATE ADEQUATE
[2019-06-22 05:02] LABS: POLYCHROMASIA 1+
[2019-06-22 10:06] VITALS: BP 124/43
[2019-06-22 10:15] LABS: URINE BILIRUBIN NEGATIVE (Negative); URINE BLOOD NEGATIVE (Negative); URINE CLARITY CLEAR; URINE COLOR YELLOW; URINE GLUCOSE-RANDOM NEGATIVE (Negative); URINE KETONES NEGATIVE (Negative); URINE LEUKOCYTES-REFLEX NEGATIVE (Negative); URINE NITRITE-REFLEX NEGATIVE (Negative); URINE PROTEIN NEGATIVE (Negative); URINE UROBILINOGEN 0.2 E.U./dl (0.2-1.0)
[2019-06-22 14:23] VITALS: BP 125/53
[2019-06-22 16:00] VITALS: BP 123/72
[2019-06-22 19:40] VITALS: BP 104/40
[2019-06-23] VITALS (7 sets, daily range): BP systolic 100–122; BP diastolic 42–54
[2019-06-23 05:54] LABS: CALCIUM 7.6 mg/dL (8.5-10.1); CREATININE 2.1 mg/dL (0.6-1.3)
--- NOTE | 2019-06-23 12:43 | CON ---
[address] [address] CONSULTATION Name: YONATHAN MENDEZ Room: [address] ADM IN M.R.#: [id number] Admission: 06/18/19 Attend Phys: Omer Amaro Discharge: Date of : 34 Report #: [id number] THIS REPORT FOR: //name// CC: Saw Paredes DATE OF SERVICE: 06/22/2019 INFECTIOUS DISEASE CONSULTATION ATTENDING PHYSICIAN: Isai Daley MD REASON FOR EVALUATION: Leukocytosis of uncertain etiology. HISTORY OF PRESENT ILLNESS: Chart reviewed, patient examined. This 84-year-old woman with extensive medical history was admitted subsequent to a fall and was found to have a left shoulder fracture dislocation that was corrected; however, postoperative course has been complicated by some right-sided lower abdominal pain as well as dyspnea. Evaluation in progress including pending CT of the abdomen and pelvis. She is generally lucid. She does admit to the pain. She has mild shortness of breath, not clear if she has had any recent fevers. Appetite actually has improved. 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 She normally has 5-6 stools a day that are quite loose. She has not had any stools in the last 48 hours. She was empirically started on therapy with piperacillin and tazobactam. ALLERGIES: LISTED TO HYDROCODONE AND IMIPENEM. CURRENT MEDICATIONS: Include Zosyn, tramadol, gabapentin, acetaminophen, senna, carvedilol, atorvastatin, levothyroxine, pantoprazole and aspirin. PAST MEDICAL HISTORY: History of osteoporosis. She has had previous kyphoplasties and vertebroplasties involving several levels including thoracic, lumbar into L1; history of perforated peptic ulcer; colon rupture of uncertain etiology and at times colostomy as well as ileostomy. These have been reversed. Hypertension, peripheral arterial disease, hypothyroidism. She has cardiomyopathy with history of congestive heart failure, EF of 25%, COPD, hypertension, abdominal aortic aneurysm and renal disease. SOCIAL HISTORY: Smokes half pack a day. No illicit drug use. No ethanol. FAMILY HISTORY: Noncontributory. REVIEW OF SYSTEMS: Somewhat limited. [place] [address] CONSULTATION Name: YONATHAN MENDEZ Room: [address] IN [facility]#: [id number] Admission: 06/18/19 Attend Phys: Omer Amaro Discharge: Date of : 34 Report #: [id number] PHYSICAL EXAMINATION: GENERAL: She is in moderate distress. She is not encephalopathic, borderline tachypneic. VITAL SIGNS: Temperature is 97.8, pulse 71, respirations 17-19, blood pressure 110/41. SKIN: Warm, dry, no rashes. HEENT: Normocephalic. Extraocular muscles intact. NECK: Supple. LUNGS: Diminished breath sounds. Chronic changes suggest scarring. HEART: Regular, occasional ectopy. I do not appreciate a murmur. ABDOMEN: Soft. There is some tenderness in the right lower quadrant. There are no peritoneal signs. GENITOURINARY AND RECTAL: Deferred. LABORATORY DATA: Most recent CBC: White count of 22.8, up from 15; H and H 11.2 36.0; platelets of 200; did have 31% bands, borderline lymphocytopenia and some monocytosis. Prealbumin of 10.7. Electrolytes: Sodium 131, potassium 4.6, chloride 98, bicarbonate is 21, anion gap of 12, BUN and creatinine 47 and 2.1, up from 1.4. Chest x-ray, no acute process. Albumin 2.5, total protein 6.0. LFTs unremarkable. Estimated GFR of 36. ASSESSMENT: Leukocytosis. PLAN: The patient is hospitalized now for the fifth time this year, third time in the last month. It certainly raises a question of some underlying issue. As per the patient's family, fall apparently was just a situation of being perhaps weak and tripping. Denied any weight loss. Leukocytosis certainly is a concern. I agree with CT of abdomen and pelvis to exclude an intraabdominal process given the dramatic change in the bowel movements routine. She does repeatedly complain about that. I think it is reasonable to continue empiric therapy with piperacillin and tazobactam and we will have to monitor expectantly. Certainly at risk for nosocomial-related infections and complications as well. I did discuss in detail with the patient's daughters. <ELECTRONICALLY SIGNED> By: Andrew Sotelo MD 06/23/19 1243 1015 [id number] Sotelo MD /nt
[2019-06-23 12:52] LABS: ABSOLUTE EOSINOPHILS 0.2 thou/uL (0.0-0.7); ABSOLUTE LYMPHOCYTES 0.9 thou/uL (0.8-5.3); ABSOLUTE MONOCYTES 0.9 thou/uL (0.0-1.2); BASOPHILS 0.4 %; EOSINOPHILS 1.6 %; HEMATOCRIT 26.7 % (37.0-47.0); HEMOGLOBIN 8.7 gm/dL (12.0-15.0); LYMPHOCYTES 7.8 %; MCH 29.9 pg (26.0-34.0); MCHC 32.7 g/dL (28.0-37.0); MCV 91.4 fL (80.0-100.0); MONOCYTES 8.1 %; MPV 9.2 fl. (7.2-11.1); NUCLEATED RBCS 0 /100WBC; PLATELET COUNT* 181 thou/uL (150-400); POLYS 82.1 %; RBC 2.92 mil/uL (4.20-5.00); RDW-CV 16.1 % (10.5-14.5)
[2019-06-24] VITALS: BP 130/52; BP 133/56
[2019-06-24 08:00] VITALS: BP 138/48
[2019-06-24 08:39] LABS: HEMATOCRIT 30.4 % (37.0-47.0)
[2019-06-24 08:44] LABS: CALCIUM 7.3 mg/dL (8.5-10.1); CREATININE 1.4 mg/dL (0.6-1.3); POTASSIUM 3.9 mmol/L (3.5-5.1)
[2019-06-24] MEDS ORDERED: KEFLEX250 MG PO (14:47)
[2019-06-24] MEDS ORDERED: ULTRAM 50MG TAB50 MG PO (14:48)
[2019-06-24] MEDS ORDERED: DURAGESIC1 EAC4 TP (14:48)
[2019-06-24] MEDS ORDERED: AUGMENTIN 500-1 EACH PO (14:49)
[2019-06-24 14:53] VITALS: BP 138/48
--- NOTE | 2019-06-25 08:49 | CON ---
[address] [address] CONSULTATION Name: YONATHAN MENDEZ Room: [address] IN M.R.#: [id number] Admission: 06/18/19 Attend Phys: Omer Amaro Discharge: 06/24/19 Date of : 33 Report #: [id number] THIS REPORT FOR: //name// CC: Saw Paredes DATE OF SERVICE: 06/22/2019 NEPHROLOGY CONSULTATION CONSULTING PHYSICIAN: Isai Daley MD REASON FOR NEPHROLOGY CONSULTATION: Acute kidney injury. REASON FOR ADMISSION: Fall. HISTORY OF PRESENT ILLNESS: This is an 84-year-old female with past medical history of congestive heart failure with last ejection fraction of 55-60% with grade 1 diastolic dysfunction, recently admitted for decompensated congestive heart failure, discharged on Lasix, came in after a fall and left shoulder dislocation. Orthopedics evaluated. No surgery was required and she was put in a shoulder immobilizer. Her creatinine was 1.2 on admission, went up to 1.4 and 2.1 now, and hence Nephrology was consulted. She is not on any NSAIDs here. She does take a daily aspirin at home and she takes Lasix 20 mg a day with potassium chloride 10 mEq a day, which was continued here and she got her last dose yesterday. She has been eating and drinking, but not great and her blood pressure has been a little towards the softer side from as compared to when she came in, her blood pressure was 109/46 now. I am not sure if she is incontinent, but her lower abdomen is quite tight and distended, but she is also sitting up in bed. No urinary complaints according to the patient. She also has developed worsening leukocytosis with white count of 10,000 on admission and 23,000 now and primary team is investigating that. REVIEW OF SYSTEMS: As mentioned in history of present illness, otherwise 10-point review of systems is negative. The patient feels very tired. HOME MEDICATIONS: Which include furosemide, carvedilol, furosemide 20 mg a day, potassium chloride 10 mEq a day, gabapentin 100 mg b.i.d., calcium carbonate, atorvastatin, aspirin, caffeine, multivitamins, levothyroxine, and pantoprazole. ALLERGIES: TO CILASTATIN, IMIPENEM, ERTAPENEM, AND HYDROCODONE. FAMILY HISTORY: Noncontributory in this 84-year-old female. 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 SOCIAL HISTORY: She lives at home. She does not smoke or take alcohol or use illicit drugs. PHYSICAL EXAMINATION: VITAL SIGNS: Blood pressure is 110/41, respiratory rate is 17, pulse rate is 71, temperature is 36.6, and pulse ox is 100% on 1.5 liters of oxygen via nasal cannula. GENERAL: She is awake and alert. She just feels very tired. She is sitting up and trying to eat her breakfast. HEAD AND EYES: Atraumatic, normocephalic, and normal conjunctivae. EARS, NOSE, AND THROAT: Normal ears and nose and mucous membranes are slightly dry. NECK: There is no jugular venous distention. CHEST: Bilaterally clear to auscultation anteriorly. No crackles or wheezing. CARDIOVASCULAR: S1 and S2 normal. No murmurs. ABDOMEN: Soft, but suprapubic area is distended and tight, and bowel sounds are decreased. No tenderness. EXTREMITIES: Lower extremities, there is no edema. NEUROLOGICAL FUNCTION: Gross neurological function is intact. PSYCHIATRIC: Mood seems to be normal. LABORATORY DATA: Creatinine was 2.1; sodium was 131, lower from 135 yesterday; potassium of 4.6. White count of 23,000 and hemoglobin of 11.2. Troponin of 0.14. Other labs are reviewed. IMAGING: Chest x-ray was reviewed. ASSESSMENT: 1. Acute kidney injury in the setting of use of Lasix and possible urinary retention and volume depletion and relative hypotension. Baseline creatinine around 1.1-1.2. She could be having chronic kidney disease stage 3 and now creatinine is 2.1. Renal ultrasound is pending and renal imaging is pending. She does take aspirin daily at home, but has not been getting NSAIDs here. 2. Worsening leukocytosis with relative hypotension, could be developing sepsis. We will defer to primary. 3. Fall, which was accidental in nature and left shoulder dislocation and she is in a shoulder immobilizer. No surgery planned as per Orthopedics. [address] [place] [address] CONSULTATION Name: YONATHAN MENDEZ Room: [address] IN M.R.#: [id number] Admission: 06/18/19 Attend Phys: Omer Amaro Discharge: 06/24/19 Date of : 34 Report #: [id number] 4. Chronic obstructive pulmonary disease. 5. Chronic diastolic congestive heart failure, ejection fraction 55-60% with grade 1 diastolic dysfunction. PLAN: 1. Agree with holding Lasix. We will hold potassium as well, agree with IV fluids, normal saline at 80 mL an hour. 2. Avoid hypotonic fluids in the setting of hyponatremia. Sodium is lower and that is likely because of renal insufficiency. 3. Renal imaging of some sort, CT abdomen and pelvis has been ordered, we will not order renal ultrasound, which the UA will be needed, bladder scan, I's and O's. Thank you for this consultation. We will continue to follow with you and avoid nephrotoxic agents. Discussed with the patient's nurse and the patient. <ELECTRONICALLY SIGNED> By: Yissel Oliver MD 06/25/19 0849 0916 [id number] Oliver MD /nt
== END 2019-06-24 15:30 | DRG 871 ==
LOC: M.ERS 15:39 → M.TBA-ER 19:19 → M.ORTHSURG 19:19 → M.2W 19:19 → M.ORTHSURG 06-20 11:04 → M.2W 06-22 10:32
PROVIDERS: Emergency Medicine; Internal Medicine; ADMIT Internal Medicine
PROC: 0RSKXZZ Reposition Left Shoulder Joint, External Approach (ICD-10-PCS; principal; 2019-06-18)
DX: A41.9 Sepsis, unspecified organism (principal); E43 Unspecified severe protein-calorie malnutrition; S42.292A Other displaced fracture of upper end of left humerus, initial encounter for closed fracture; I50.42 Chronic combined systolic (congestive) and diastolic (congestive) heart failure; N17.9 Acute kidney failure, unspecified; I13.0 Hypertensive heart and chronic kidney disease with heart failure and stage 1 through stage 4 chronic kidney disease, or unspecified chronic kidney disease; S53.115A Anterior dislocation of left ulnohumeral joint, initial encounter; M81.0 Age-related osteoporosis without current pathological fracture; I73.9 Peripheral vascular disease, unspecified; E03.9 Hypothyroidism, unspecified; J44.9 Chronic obstructive pulmonary disease, unspecified; N18.3 Chronic kidney disease, stage 3 (moderate); D72.829 Elevated white blood cell count, unspecified; I35.1 Nonrheumatic aortic (valve) insufficiency; I95.9 Hypotension, unspecified; I71.4 Abdominal aortic aneurysm, without rupture; Z93.3 Colostomy status; Z93.2 Ileostomy status; Z95.820 Peripheral vascular angioplasty status with implants and grafts; Z88.6 Allergy status to analgesic agent; Z88.8 Allergy status to other drugs, medicaments and biological substances; Z87.891 Personal history of nicotine dependence; Z87.11 Personal history of peptic ulcer disease; Z68.23 Body mass index [BMI] 23.0-23.9, adult; R33.9 Retention of urine, unspecified; W18.39XA Other fall on same level, initial encounter; Y93.89 Activity, other specified; Y92.89 Other specified places as the place of occurrence of the external cause; Y99.8 Other external cause status

== ENCOUNTER 2019-07-13 18:35 | Inpatient (IN) | payer MEDICARE, OTHER ==
[~2019-07-13] VITALS: Ht 139.7 cm; Wt 84.4 kg
[~2019-07-13 18:35] MED LIST changes: +AUGMENTIN 500-1 EACH PO; +DURAGESIC1 EAC4 TP; +KEFLEX250 MG PO; +ULTRAM 50MG TAB50 MG PO
[2019-07-13 18:36] VITALS: BP 120/66
[2019-07-13] MEDS ORDERED: FLOMAX0.4 MG PO (19:02)
[2019-07-13] MEDS ORDERED: TUMS PO (19:03)
[2019-07-13] MEDS ORDERED: ZOFRAN ODT4 MG DISSOLVE (19:03)
[2019-07-13 19:11] LABS: ABSOLUTE BASOPHILS 0.1 thou/uL (0.0-0.2); ABSOLUTE LYMPHOCYTES 0.7 thou/uL (0.8-5.3); ABSOLUTE MONOCYTES 0.6 thou/uL (0.0-1.2); ABSOLUTE NEUTROPHILS 6.4 thou/uL (1.6-8.1); BASOPHILS 0.8 %; EOSINOPHILS 0.4 %; HEMATOCRIT 37.9 % (37.0-47.0); HEMOGLOBIN 12.2 gm/dL (12.0-15.0); MCH 30.2 pg (26.0-34.0); MCHC 32.1 g/dL (28.0-37.0); MONOCYTES 7.3 %; NUCLEATED RBCS 0 /100WBC; PLATELET COUNT* 222 thou/uL (150-400); POLYS 82.5 %; RBC 4.03 mil/uL (4.20-5.00); RDW-CV 17.7 % (10.5-14.5); WBC 7.7 thou/uL (4.0-11.0)
[2019-07-13 19:25] LABS: CALCIUM 8.4 mg/dL (8.5-10.1); CREATININE 1.4 mg/dL (0.6-1.3)
[2019-07-13 19:28] LABS: APTT 27.4 Seconds (25.0-31.3); INR 1.3; PROTIME 13.6 Seconds (9.20-11.50)
[2019-07-13 19:38] LABS: ALBUMIN 3.3 g/dL (3.4-5.0); CK-MB MASS 3.1 ng/mL (<0.5-3.6); TOTAL BILIRUBIN 0.3 mg/dL (<0.1-1.0); TOTAL PROTEIN 6.1 g/dL (6.4-8.2); TROPONIN-I LEVEL 0.54 ng/mL (<0.06)
[2019-07-13 20:15] LABS: URINE BILIRUBIN NEGATIVE (Negative); URINE BLOOD NEGATIVE (Negative); URINE CLARITY CLEAR; URINE COLOR YELLOW; URINE GLUCOSE-RANDOM NEGATIVE (Negative); URINE KETONES NEGATIVE (Negative); URINE LEUKOCYTES-REFLEX NEGATIVE (Negative); URINE NITRITE-REFLEX NEGATIVE (Negative); URINE PROTEIN NEGATIVE (Negative); URINE UROBILINOGEN 0.2 E.U./dl (0.2-1.0)
[2019-07-13 22:49] VITALS: BP 131/52
[2019-07-13] MEDS ORDERED: TRAMADOL 50 MG50 MG PO (23:10)
[2019-07-13 23:30] VITALS: BP 121/49
[2019-07-14 04:00] VITALS: BP 114/46
[2019-07-14 08:00] VITALS: BP 126/49
--- NOTE | 2019-07-14 08:00 | NUR ---
ASSUME PT CARE AT 0700, A&O X4 WITH SOME FORGETFULNESS, APPEARS DROWSY, CALL LIGHT IN REACH. PETROPHYSICAL ENGINEER TRACING SINUS RHYTHM WITH BBB, VSS, RA. WILL CONT POC.
--- NOTE | 2019-07-14 10:26 | EKG ---
[place] [address] ELECTROCARDIOGRAM REPORT Name: ANDREA,KARLENEALISON Room: [address] ADM IN .R.#: [id number] Admission: 07/13/19 Attend Phys: Isai Daley MD Discharge: Date of : 34 Report #: [id number] THIS REPORT FOR: //name// [facility] ED Test Date: 2019-07-13 Test Time: 20:11:49 Pat Name: YONATHAN MENDEZ Department: Room: [facility] Gender: F Pantograph Transferrer: MR : 1935 Requested By: Gigi Coleman Order Number: [id number] MD: Joseph Edmondson Measurements Intervals [place] Rate: 80 P: 72 AR: 228 QRS: -60 QRSD: 152 T: 124 QT: 437 QTc: 505 Interpretive Statements Sinus rhythm Prolonged AR interval Left bundle branch block Compared to ECG 06/18/2019 19:15:14 No significant changes Electronically Signed On 07-14-2019 10:26:46 CDT by Joseph Edmondson [email or web address] <ELECTRONICALLY SIGNED> By: Joseph Edmondson MD, [facility] 07/14/19 1026 10 10 Joseph Edmondson MD, [facility] /EPI
[2019-07-14 11:30] LABS: CALCIUM 8.5 mg/dL (8.5-10.1); CREATININE 1.4 mg/dL (0.6-1.3); MAGNESIUM 1.7 mg/dL (1.8-2.4)
[2019-07-14 11:31] LABS: POTASSIUM 4.7 mmol/L (3.5-5.1)
--- NOTE | 2019-07-14 12:15 | NUR ---
RN SPOKE TO SHANI, ORTHO RESIDENT, FOR ARM RESTRICTIONS. PER SHANI, UNTIL 4 WEEKS PATIENT IS NORMALLY NO LIFTING, NO PUSHING, NO PULLING, AND NON-WEIGHTBEARING. SHANI NOTED THIS MAY CHANGE ONCE PATIENT IS EVALUATED.
[2019-07-14 12:59] VITALS: BP 121/50
--- NOTE | 2019-07-14 15:55 | NUR ---
Pt is A&O. Pt was dc on 06/24/19 to [facility] and plans to return at [place]. CM spoke with Magdalene at [facility], they are able to accept Pt back. No DME. [facility] of [facility]. Following for disposition.
[2019-07-14 16:26] VITALS: BP 116/56
--- NOTE | 2019-07-14 16:26 | NUR ---
ASSUMED CARE OF PT THIS SHIFT AROUND 1530- ASPHALT TILE FLOOR LAYER NOTED TRACING SR/BBB/1ST DEGREE- IV NOTED TO RIGHT AC INTACT, IVF INFUSSING PRESCIBED- MG NOTED TO BE 1.7, AND CURRENLTY BEING REPLACED PER IV PER PROTOCOL WITH REDAW TO FOLLOW- TSH NOTED AT 39.460, NOTIFIED WITH SYNTHROID CHANGED TO 0.15MG DAILY THIS SHIFT- PT NOTED TO BE REFUSSING MEALS THIS SHIFT- SCHEDULED TYLENOL PRESCIBED- HOURLY ROUNDS IN PLACE R/T SAFETY/NEEDS- ALL NEEDS MET AT THIS TIME-WCTM
[2019-07-14 20:00] VITALS: BP 123/52
[2019-07-15] VITALS: BP 124/50
[2019-07-15 06:00] VITALS: BP 145/58
--- NOTE | 2019-07-15 06:28 | NUR ---
PT TRANSFFED TO THE UNIT AT 0600. REPORT GIVEN BY TELE NURSE. PT ALERT AND ORIENTED TIME 2-3, VITALS STABLE. FALL PRECAUTIONS IN PLACE. WILL CONTINUE TO MONITOR.
[2019-07-15 09:50] VITALS: BP 137/47
[2019-07-15 16:17] VITALS: BP 125/54
--- NOTE | 2019-07-15 19:00 | NUR ---
PATIENT COOPERATIVE THRU SHIFT NOTED TELIDA. STATES BEING COLD MOST OF THE SHIFT. BLANKETS PROVIDED. PATIENT UP TO CHAIR FOR MEALS. EATING FAIR. FAMILY MEMBERS IN PERIODICALLY THRU SHIFT. IV SITE NOTED WNL. COCCYX AREA NOTED REDDEDNED, BLANCHABLE, PERICARES DONE PRN THRU SHIFT, BARRIER CREAM APPLIED. CURRENTLY SITTING UP IN CHAIR, COVERED IN BLANKETS, CALL LIGHT IN REACH. DENIES NEEDS AT THIS TIME. FAMILY MEMBERS PRESENT. ~TJRN
[2019-07-15 20:00] VITALS: BP 126/48
--- NOTE | 2019-07-16 06:21 | NUR ---
PATIENT SLEPT MOST OF THE NIGHT. IV REMAINS SALINE LOCKED. PATIENT WAS GIVEN SHEDULED PAIN MEDS ORDERED. WILL CONTINUE TO MONITOR.
[2019-07-16 07:45] VITALS: BP 140/57
[2019-07-16] MEDS ORDERED: ULTRAM 50MG TAB50 MG PO (09:31)
[2019-07-16] MEDS ORDERED: SYNTHROID150 MCG PO (09:31)
[2019-07-16] MEDS ORDERED: ACETAMINOPHEN325 M1 PO (09:31)
[2019-07-16] MEDS ORDERED: LIPITOR 20 MG T20 M1 PO (09:31)
--- NOTE | 2019-07-16 11:00 | NUR ---
PT.HAS DISCHARGE ORDERS TO DISCHARGE TO SNF AT [facility]. NOTIFIED THEODORE/ALAN AND FAXED HER INFORMATION FROM HOSPITAL STAY,DISCHARE SUMMARY AND ORTHO DISCHARGE PROGRESS NOTE TO HER [phone]. DID NOT GO THROUGH 2 DIFFERENT TIMES. THEODORE GAVE A DIFFERENT FAX # OF [phone]. FAXED ON THIS NUMBER AND INFORMATION WENT THROUGH. CHART COPIED TO GO WITH PT. ZACK WYATT WILL CALL REPORT. DAUGHTER AND SON IN LAW IN ROOM WHEN CM TOLD PT.ABOUT TRANSPORT TIME.
[2019-07-16 12:10] VITALS: BP 140/57
--- NOTE | 2019-07-16 14:15 | NUR ---
PATIENT DISCHARGED TO [facility]. REPORT CALLED TO MICHELE. COPY OF CHART AND DISCHARGE ORDERS GIVEN TO TRANSPORTER. IV REMOVED. PATIENT BELONGINGS PACKED AND SENT WITH TRANSPORTER. PATIENT DENIES ANY FURTHER NEEDS. PATIENT LEFT BY VINNY GUTIERREZ AT THIS TIME.
== END 2019-07-16 14:15 | DRG 383 ==
LOC: M.ERS 18:35 → M.2W 21:05 → M.TBA-ER 21:05 → M.2W 22:27 → M.ORTHSURG 07-15 05:56
PROVIDERS: Emergency Medicine; Internal Medicine; ADMIT Internal Medicine
DX: K27.3 Acute peptic ulcer, site unspecified, without hemorrhage or perforation (principal); G92 Toxic encephalopathy; E44.0 Moderate protein-calorie malnutrition; I50.42 Chronic combined systolic (congestive) and diastolic (congestive) heart failure; S42.92XA Fracture of left shoulder girdle, part unspecified, initial encounter for closed fracture; Z68.41 Body mass index [BMI] 40.0-44.9, adult; I13.0 Hypertensive heart and chronic kidney disease with heart failure and stage 1 through stage 4 chronic kidney disease, or unspecified chronic kidney disease; M81.0 Age-related osteoporosis without current pathological fracture; I73.9 Peripheral vascular disease, unspecified; E03.9 Hypothyroidism, unspecified; N18.3 Chronic kidney disease, stage 3 (moderate); E87.6 Hypokalemia; R62.7 Adult failure to thrive; J44.9 Chronic obstructive pulmonary disease, unspecified; G89.29 Other chronic pain; E16.2 Hypoglycemia, unspecified; Z93.3 Colostomy status; Z93.2 Ileostomy status; Z95.820 Peripheral vascular angioplasty status with implants and grafts; Z88.6 Allergy status to analgesic agent; Z88.8 Allergy status to other drugs, medicaments and biological substances; Z87.891 Personal history of nicotine dependence; Z83.3 Family history of diabetes mellitus; W18.39XA Other fall on same level, initial encounter; Y93.89 Activity, other specified; Y92.89 Other specified places as the place of occurrence of the external cause; Y99.8 Other external cause status

== ENCOUNTER 2019-07-18 19:35 | Inpatient (IN) | payer MEDICARE, OTHER ==
[~2019-07-18] VITALS: Ht 139.7 cm; Wt 40.1 kg
[2019-07-18 19:35] VITALS: BP 113/49
[~2019-07-18 19:35] MED LIST changes: +ACETAMINOPHEN325 M1 PO; +FLOMAX0.4 MG PO; +LIPITOR 20 MG T20 M1 PO; +SYNTHROID150 MCG PO; +TUMS PO; +ZOFRAN ODT4 MG DISSOLVE
[2019-07-18] MEDS ORDERED: PROTONIX40 M1 PO (19:46)
[2019-07-18] MEDS ORDERED: ANACIN 400-321 EACH PO (19:47)
[2019-07-18] MEDS ORDERED: ASPERCREME1 EACH TOP (19:49)
[2019-07-18 20:11] LABS: ABSOLUTE BASOPHILS 0.1 thou/uL (0.0-0.2); ABSOLUTE EOSINOPHILS 0.2 thou/uL (0.0-0.7); ABSOLUTE LYMPHOCYTES 1.6 thou/uL (0.8-5.3); ABSOLUTE MONOCYTES 0.6 thou/uL (0.0-1.2); ABSOLUTE NEUTROPHILS 3.1 thou/uL (1.6-8.1); BASOPHILS 1.7 %; EOSINOPHILS 4.1 %; HEMATOCRIT 40.4 % (37.0-47.0); HEMOGLOBIN 13.1 gm/dL (12.0-15.0); LYMPHOCYTES 27.7 %; MCH 30.9 pg (26.0-34.0); MCHC 32.5 g/dL (28.0-37.0); MONOCYTES 11.2 %; MPV 7.9 fl. (7.2-11.1); NUCLEATED RBCS 0 /100WBC; PLATELET COUNT* 223 thou/uL (150-400); POLYS 55.3 %; RBC 4.25 mil/uL (4.20-5.00); RDW-CV 18.4 % (10.5-14.5); WBC 5.7 thou/uL (4.0-11.0)
[2019-07-18 20:19] LABS: CALCIUM 8.8 mg/dL (8.5-10.1); POTASSIUM 3.6 mmol/L (3.5-5.1)
[2019-07-18 20:20] LABS: INR 1.2; PROTIME 12.2 Seconds (9.20-11.50)
[2019-07-18 20:29] LABS: ALBUMIN 2.8 g/dL (3.4-5.0); TOTAL BILIRUBIN 0.3 mg/dL (<0.1-1.0); TOTAL PROTEIN 5.7 g/dL (6.4-8.2); TROPONIN-I LEVEL 0.06 ng/mL (<0.06)
[2019-07-18 20:34] LABS: APTT 26.9 Seconds (25.0-31.3)
[2019-07-18 21:00] LABS: URINE BILIRUBIN NEGATIVE (Negative); URINE BLOOD NEGATIVE (Negative); URINE CLARITY CLEAR; URINE COLOR YELLOW; URINE GLUCOSE-RANDOM NEGATIVE (Negative); URINE KETONES NEGATIVE (Negative); URINE LEUKOCYTES-REFLEX NEGATIVE (Negative); URINE NITRITE-REFLEX NEGATIVE (Negative); URINE PROTEIN NEGATIVE (Negative); URINE UROBILINOGEN 0.2 E.U./dl (0.2-1.0)
[2019-07-18 21:49] VITALS: BP 117/48
[2019-07-18 22:06] VITALS: BP 103/45
[2019-07-18] MEDS ORDERED: TRAMADOL 50 MG50 MG PO (22:28)
[2019-07-18] MEDS ORDERED: TUMS PO (22:32)
--- NOTE | 2019-07-19 03:41 | NUR ---
ASSUMED CARE OF PT AT 2200 FROM THE ER. PT IS ALERT AND ORIENTED. VSS. PERRLA. NO COMPLAINTS OF PAIN. PT IS A Q2 TURN. PT HAS BOGGY HEAL AND A STAGE 1 ON HER COCCYX. PICTURES TAKEN AND PLACED IN THE CHART. PT IS IN SINUS RYTHM ON THE TELEMETRY. PT IS RESTING COMFORTABLY IN BED. RESPIRATIONS ARE EVEN AND NONLABORED. WILL CONTINUE TO MONITOR PT.
[2019-07-19 03:45] VITALS: BP 118/46
[2019-07-19 08:00] VITALS: BP 113/50
[2019-07-19] MEDS ORDERED: SYNTHROID150 MCG PO (09:46)
[2019-07-19 12:17] VITALS: BP 105/53
[2019-07-19 16:13] VITALS: BP 104/44
--- NOTE | 2019-07-19 16:26 | NUR ---
ASSUMED PT CARE REPORT RECEIVED FROM NURSE. PT IS AOX4, SR BBB ON RADIOLOGIC TECHNOLOGY TEACHER. ON 2 L NC. PT UP IN CHAIR WITH PHYSICAL THERAPY. R FOREARM SALINE LOCK. BOGGY HEELS, DRESSING ON. Q2TURN. CALL LIGHT AT REACH. LUNG SOUND IS CLEAR. WILL CONTINUE TO MONITOR PT.
[2019-07-19 20:00] VITALS: BP 107/47
[2019-07-20] VITALS: BP 110/43
[2019-07-20 04:00] VITALS: BP 111/50
[2019-07-20 04:21] LABS: ABSOLUTE EOSINOPHILS 0.2 thou/uL (0.0-0.7); ABSOLUTE LYMPHOCYTES 1.6 thou/uL (0.8-5.3); ABSOLUTE MONOCYTES 0.6 thou/uL (0.0-1.2); ABSOLUTE NEUTROPHILS 1.6 thou/uL (1.6-8.1); BASOPHILS 0.9 %; EOSINOPHILS 5.6 %; HEMATOCRIT 35.8 % (37.0-47.0); HEMOGLOBIN 11.5 gm/dL (12.0-15.0); LYMPHOCYTES 40.1 %; MCH 30.3 pg (26.0-34.0); MCHC 32.1 g/dL (28.0-37.0); MCV 94.2 fL (80.0-100.0); MONOCYTES 15.2 %; MPV 7.7 fl. (7.2-11.1); NUCLEATED RBCS 0 /100WBC; PLATELET COUNT* 194 thou/uL (150-400); POLYS 38.2 %; RDW-CV 18.1 % (10.5-14.5); WBC 4.1 thou/uL (4.0-11.0)
[2019-07-20 04:35] LABS: CALCIUM 8.6 mg/dL (8.5-10.1); CREATININE 0.8 mg/dL (0.6-1.3); TROPONIN-I LEVEL 0.07 ng/mL (<0.06)
[2019-07-20 04:39] LABS: POTASSIUM 2.8 mmol/L (3.5-5.1)
--- NOTE | 2019-07-20 06:32 | NUR ---
PT HAS RESTED T/O NIGHT WITHOUT C/O PAIN. TELE SHOWS 1ST DEGREE,BBB. LS CLEAR TO DIMINISHED ON 2L NC.PT IS ASSIST X1 TO BSC. PT PLACE ON ELECTROLYTE PROTOCOL THIS AM R/T LOW POTASSIUM. CALL LIGHT WITHIN REACH
[2019-07-20 08:00] VITALS: BP 113/44
--- NOTE | 2019-07-20 08:26 | CON ---
[address] [address] CONSULTATION Name: YONATHAN MENDEZ Room: [address] IN M.R.#: [id number] Admission: 07/18/19 Attend Phys: Kayli Velásquez MD Discharge: Date of : 34 Report #: [id number] THIS REPORT FOR: //name// [facility] DATE OF SERVICE: 07/19/2019 CARDIOLOGY CONSULTATION HISTORY OF PRESENT ILLNESS: The patient is an 84-year-old single white female who I was asked to see in the hospital today for cardiac evaluation. The history is obtained from the patient and some old records. There are no family members available. The patient has had multiple hospitalizations here at [facility]. She was admitted here in 12/2017 with orthostasis. She apparently still lives by herself. Because of heart murmur actually performed cardiac catheterization on the patient back in 01/2018. This was performed from the femoral approach. Results showed only mild coronary artery disease with moderate aortic stenosis and moderate aortic insufficiency. She was found to have evidence of a cardiomyopathy with an ejection fraction of 35-40%. She was seen at that time by my partner, Dr. Hendrickson for congestive heart failure. She was admitted here in November of this year with acute respiratory failure. She was treated with antibiotics, steroids and discharged. She was admitted here in May with chest pain and shortness of breath. She was eventually discharged. She was admitted here a month ago after she fell and dislocated her shoulder. She apparently was just discharged 2 days ago with confusion. She suffered a shoulder displacement. She was brought back to the Emergency Room yesterday after being home only 2 days. She complained of some chest pain and weakness. She denied any fever, cough, vomiting, diarrhea, bleeding. She denies any significant chest pain. PAST MEDICAL HISTORY: Significant for previous back surgery, cataract extraction. She has a history of hypertension. MEDICATIONS: On admission consisted of Lipitor, Lasix, carvedilol, potassium, Flomax, Protonix. ALLERGIES: SHE HAS AN ALLERGY TO HYDROCODONE. FAMILY HISTORY: Father, heart disease. SOCIAL HISTORY: She is , lives by herself. She quit smoking recently. She used to smoke a few cigarettes a day. No alcohol abuse. REVIEW OF SYSTEMS: She denies no history of stroke, asthma[place] [address] CONSULTATION Name: YONATHAN MENDEZ Room: [address] IN [facility]#: [id number] Admission: 07/18/19 Attend Phys: Kayli Velásquez MD Discharge: Date of : 34 Report #: [id number] previous ruptured colon, has a colostomy. She has had a history of PAD with previous stenting of her leg. She has no kidney disease, no cancer, or no psychiatric illness. PHYSICAL EXAMINATION: GENERAL: Revealed an elderly frail appearing female, lying in bed. She appeared in no acute distress. VITAL SIGNS: She had a blood pressure of 110/60, pulse is 80. She is afebrile. HEENT: She is anicteric. Conjunctivae pink. Mucous membranes are moist. NECK: Veins do not appear distended. CHEST: Clear to auscultation. CARDIOVASCULAR: Regular rate and rhythm, grade 2 systolic ejection murmur at left sternal border. ABDOMEN: Soft. EXTREMITIES: Had no pitting edema. Dorsalis pedis pulse cannot be palpated. SKIN: Cool and dry. NEUROLOGIC: Nonfocal. LABORATORY DATA: Her ECG on admission showed a sinus rhythm, left axis and a left bundle branch block. Her workup, she had an echocardiogram done in May that showed ejection fraction felt to be normal left atrial enlargement, moderate aortic insufficiency. The peak gradient across the aortic valve was 15 mmHg. Her workup in the Emergency Room yesterday, she had a portable chest x-ray that showed hyperinflated lung quiñonez. CT scan of the head without contrast done last month showed small vessel changes. Her lab work, sodium 139, potassium 3.6, BUN 17, creatinine 1.0, albumin is 2.8. Liver function studies were normal. Troponin 0.07. BNP 4247. TSH 39. Her white blood cell count 5.7, hemoglobin 13.1. IMPRESSION AND RECOMMENDATIONS: 1. Mild aortic stenosis and moderate aortic insufficiency. The patient is not an operative candidate. 2. Hypertension. The patient has been on beta bayron. 3. Hyperlipidemia. The patient is on a statin drug. 4. Chronic back pain. 5. Previous peptic ulcer. The patient has colostomy in place. 6. Peripheral arterial disease with previous stenting. 7. Shortness of breath. The patient is on a beta bayron. <ELECTRONICALLY SIGNED> By: Joseph Edmondson MD, FACC 07/20/19 0826 0806 [id number] Edmondson MD, FACC /nt
[2019-07-20] MEDS ORDERED: CARAFATE 1 GM TA1 G1 PO (11:00)
[2019-07-20] MEDS ORDERED: TRAMADOL 50 MG50 MG PO (11:00)
[2019-07-20] MEDS ORDERED: REMERON15 MG PO (11:00)
[2019-07-20] MEDS ORDERED: ACETAMINOPHEN325 M1 PO (11:00)
[2019-07-20] MEDS ORDERED: ADULT LOW DOSE81 MG PO (11:00)
[2019-07-20] MEDS ORDERED: MAGOX 400400 MG PO (11:00)
[2019-07-20] MEDS ORDERED: COZAAR 50 MG TA50 M1 PO (11:01)
--- NOTE | 2019-07-20 11:34 | NUR ---
PT KNOWN TO [facility], WAS DC'D TO [facility] FOR SNF ON FRI. PLAN IS FOR HER TO RETURN THERE. MET WITH DTR/CHAD/DONTRELL TO DISCUSS DC PLAN AND ORDER FOR HOSPICE. DTR ADMITS THAT PT IS FAILING AND WEAKER. SHE STATED THE LAST 2 YRS SINCE SPOUSES , PT HAS HAD SEVERAL HOSPITAL STAYS AND THAT 2 DRS HAVE MENTIONED HOSPICE. DTR WAS NOT FAMILIAR WITH IT, DISCUSSED AND GAVE INFO. DTR BECAME TEARFUL, SAID FAMILY NOT READY FOR HOSPICE. PREFER PT RETURN TO [facility] SNF AND THEY WILL DISCUSS FURTHER A FAMILY. CALLED AND FAXED DC ORDERS TO [facility]. THEY WILL ACCEPT BACK, SHE SET UP W/C VAN FOR 230. RN HAS NUMBER TO CALL REPORT. CHART COPIED. DTR AND PT AWARE OF TIME
[2019-07-20 11:45] VITALS: BP 109/43
[2019-07-20 11:52] VITALS: BP 109/43
[2019-07-20 11:54] VITALS: BP 109/43
--- NOTE | 2019-07-20 13:21 | NUR ---
Nutrition: Consult for "diet." RD spoke with pt's dtr. She stated pt has long h/o stomach resection, colostomy, ileostomy. She eats only 2 meals/day b/c she has 2/3 of a stomach. This surgery was ~45 yrs ago and pt has since eaten this way. Dtr stated pt is eating as much as she normally does, no significant wt changes. She has dumping syndrome as well. After her ostomy reversals, she was able to tolerate more foods. Dtr did want to try Ensure Clear since pt doesn't like the "milky" flavored ones. NAYE provided pt with two Ensure Clears to take with her and try. Discharging to [facility] today. Pt and dtr satisfied with RD consult. No other nutrition interventions needed at this time. Mild risk.
--- NOTE | 2019-07-20 14:24 | NUR ---
ASSUMED PT CARE REPORT RECEIVED FROM NURSE.PT IS OAX4 ON 2 L NC. Q 2TURN. PICTURE OF BOGGY HEELS AND BACK REDNESS TAKEN PRIOR TO DISCHARGE. PT LEFT UNIT AT 1415 ACCOMPANIED BY TRANSPORTER ON WHEELCHAIR
--- NOTE | 2019-07-20 16:08 | EKG ---
[place] [address] ELECTROCARDIOGRAM REPORT Name: ANDREAAKRLENEALISON Room: [address] IN M.R.#: [id number] Admission: 07/18/19 Attend Phys: Kayli Velásquez MD Discharge: 07/20/19 Date of : 34 Report #: [id number] THIS REPORT FOR: //name// [facility] ED Test Date: 2019-07-18 Test Time: 19:38:19 Pat Name: YONATHAN MENDEZ Department: Room: [facility] Gender: F Sliver Lapper: MARLO : 1935 Requested By: Erika Humphries Order Number: [id number] MD: Ector Brown Measurements Intervals [place] Rate: 92 P: 31 MS: 201 QRS: -48 QRSD: 141 T: 120 QT: 400 QTc: 495 Interpretive Statements Sinus rhythm Left bundle branch block Compared to ECG 07/13/2019 20:11:49 First degree AV block no longer present Electronically Signed On 07-20-2019 16:08:03 CDT by Ector Brown [email or web address] <ELECTRONICALLY SIGNED> By: Ector Brown MD, [facility] 07/20/19 1608 37 37 Ector Brown MD, [facility] /EPI
--- NOTE | 2019-07-20 16:25 | NUR ---
RE: heart failure medication education I provided patient and family with a heart failure medication education handout. We discussed carvedilol, losartan, and furosemide. All questions were answered. Pharmacy available for any future questions. Thank you.
== END 2019-07-20 14:31 | DRG 384 ==
LOC: M.ERS 19:35 → M.2W 21:13 → M.TBA-ER 21:13 → M.2W 21:57
PROVIDERS: Family Medicine; Personal Emergency Response Attendant; ADMIT Internal Medicine
DX: K27.9 Peptic ulcer, site unspecified, unspecified as acute or chronic, without hemorrhage or perforation (principal); I50.42 Chronic combined systolic (congestive) and diastolic (congestive) heart failure; I13.0 Hypertensive heart and chronic kidney disease with heart failure and stage 1 through stage 4 chronic kidney disease, or unspecified chronic kidney disease; I42.9 Cardiomyopathy, unspecified; E44.0 Moderate protein-calorie malnutrition; I35.2 Nonrheumatic aortic (valve) stenosis with insufficiency; M81.0 Age-related osteoporosis without current pathological fracture; N18.3 Chronic kidney disease, stage 3 (moderate); I25.10 Atherosclerotic heart disease of native coronary artery without angina pectoris; J44.9 Chronic obstructive pulmonary disease, unspecified; E03.9 Hypothyroidism, unspecified; E78.5 Hyperlipidemia, unspecified; M54.9 Dorsalgia, unspecified; G89.29 Other chronic pain; F03.90 Unspecified dementia, unspecified severity, without behavioral disturbance, psychotic disturbance, mood disturbance, and anxiety; F32.9 Major depressive disorder, single episode, unspecified; Z68.20 Body mass index [BMI] 20.0-20.9, adult; Z87.891 Personal history of nicotine dependence; Z95.820 Peripheral vascular angioplasty status with implants and grafts; Z98.1 Arthrodesis status; Z79.82 Long term (current) use of aspirin; Z79.899 Other long term (current) drug therapy; Z88.8 Allergy status to other drugs, medicaments and biological substances; Z82.49 Family history of ischemic heart disease and other diseases of the circulatory system

== ENCOUNTER 2019-08-19 22:03 | Inpatient (IN) | payer MEDICARE, OTHER ==
[~2019-08-19] VITALS: Ht 139.7 cm; Wt 39.1 kg
[~2019-08-19 22:03] MED LIST changes: +ADULT LOW DOSE81 MG PO; +ASPERCREME1 EACH TOP; +COZAAR 50 MG TA50 M1 PO; +MAGOX 400400 MG PO; +REMERON15 MG PO
[2019-08-19 22:16] VITALS: BP 108/52
[2019-08-19 22:41] LABS: ABSOLUTE BASOPHILS 0.1 thou/uL (0.0-0.2); ABSOLUTE LYMPHOCYTES 1.3 thou/uL (0.8-5.3); ABSOLUTE NEUTROPHILS 9.7 thou/uL (1.6-8.1); BASOPHILS 0.7 %; EOSINOPHILS 0.1 %; HEMATOCRIT 35.2 % (37.0-47.0); HEMOGLOBIN 11.6 gm/dL (12.0-15.0); LYMPHOCYTES 10.9 %; MCH 32.6 pg (26.0-34.0); MCV 98.9 fL (80.0-100.0); MONOCYTES 8.3 %; NUCLEATED RBCS 0 /100WBC; PLATELET COUNT* 232 thou/uL (150-400); RBC 3.56 mil/uL (4.20-5.00); RDW-CV 18.2 % (10.5-14.5); WBC 12.1 thou/uL (4.0-11.0)
[2019-08-19 22:48] LABS: ANION GAP 10 mmol/L (7-16); BUN 23 mg/dL (7-18); CALCIUM 8.9 mg/dL (8.5-10.1); CHLORIDE 102 mmol/L (98-107); CO2 27 mmol/L (21-32); CREATININE 0.9 mg/dL (0.6-1.3); GLUCOSE 97 mg/dL (70-99); POTASSIUM 3.4 mmol/L (3.5-5.1); SODIUM 139 mmol/L (136-145)
[2019-08-19 22:57] LABS: ALBUMIN 3.7 g/dL (3.4-5.0); ALKALINE PHOSPHATASE 85 U/L (46-116); LIPASE 58 U/L (73-393); SGOT 22 U/L (15-37); SGPT 26 U/L (30-65); TOTAL BILIRUBIN 0.3 mg/dL (<0.1-1.0); TOTAL PROTEIN 6.9 g/dL (6.4-8.2); TROPONIN-I LEVEL <0.06 ng/mL (<0.06)
[2019-08-20 01:33] LABS: URINE BILIRUBIN NEGATIVE (Negative); URINE BLOOD NEGATIVE (Negative); URINE CLARITY CLEAR; URINE COLOR YELLOW; URINE GLUCOSE-RANDOM NEGATIVE (Negative); URINE KETONES NEGATIVE (Negative); URINE LEUKOCYTES-REFLEX NEGATIVE (Negative); URINE NITRITE-REFLEX NEGATIVE (Negative); URINE PROTEIN NEGATIVE (Negative); URINE SPECIFIC GRAVITY 1.015 (1.005-1.030); URINE UROBILINOGEN 0.2 E.U./dl (0.2-1.0)
[2019-08-20 02:10] VITALS: BP 109/52
[2019-08-20 02:15] VITALS: BP 128/51
[2019-08-20 08:00] VITALS: BP 129/82
--- NOTE | 2019-08-20 10:41 | EKG ---
[place] [address] ELECTROCARDIOGRAM REPORT Name: YONATHAN MENDEZ Room: [address] ADM IN M.R.#: [id number] Admission: 08/20/19 Attend Phys: Isai Daley MD Discharge: Date of : 34 Report #: [id number] THIS REPORT FOR: //name// [facility] ED Test Date: 2019-08-20 Test Time: 00:09:49 Pat Name: YONATHAN MENDEZ Department: Room: [address] Gender: F Shampoo Person: TAMAR : 1935 Requested By: Pratik Montero Order Number: [id number] MD: Joseph Edmondson Measurements Intervals [place] Rate: 96 P: 71 [place]: 206 QRS: -55 QRSD: 137 T: 118 QT: 381 QTc: 482 Interpretive Statements Sinus rhythm left axis Left bundle branch block Baseline wander in lead(s) V6 Compared to ECG 07/18/2019 19:38:19 No significant changes Electronically Signed On 08-20-2019 10:41:12 CDT by Joseph Edmondson [email or web address] <ELECTRONICALLY SIGNED> By: Joseph Edmondson MD, FACC 08/20/19 1041 0009 0009 Joseph Edmondson MD, [facility] /EPI
[2019-08-20 16:07] VITALS: BP 137/48
[2019-08-20 19:07] LABS: CALCIUM 8.3 mg/dL (8.5-10.1); MAGNESIUM 1.4 mg/dL (1.8-2.4); POTASSIUM 3.9 mmol/L (3.5-5.1)
[2019-08-20 19:35] VITALS: BP 106/48
[2019-08-20 23:40] VITALS: BP 124/47
[2019-08-21 04:52] LABS: ABSOLUTE LYMPHOCYTES 1.5 thou/uL (0.8-5.3); ABSOLUTE MONOCYTES 0.9 thou/uL (0.0-1.2); ABSOLUTE NEUTROPHILS 6.9 thou/uL (1.6-8.1); BASOPHILS 0.3 %; EOSINOPHILS 0.1 %; HEMATOCRIT 30.2 % (37.0-47.0); LYMPHOCYTES 15.6 %; MCH 32.6 pg (26.0-34.0); MCV 98.7 fL (80.0-100.0); MONOCYTES 10.1 %; MPV 8.2 fl. (7.2-11.1); NUCLEATED RBCS 0 /100WBC; PLATELET COUNT* 182 thou/uL (150-400); POLYS 73.9 %; RBC 3.06 mil/uL (4.20-5.00); RDW-CV 18.2 % (10.5-14.5); WBC 9.3 thou/uL (4.0-11.0)
[2019-08-21 05:17] LABS: ALBUMIN 2.7 g/dL (3.4-5.0); CALCIUM 8.7 mg/dL (8.5-10.1); CREATININE 0.8 mg/dL (0.6-1.3); POTASSIUM 4.2 mmol/L (3.5-5.1); TOTAL BILIRUBIN 0.3 mg/dL (<0.1-1.0); TOTAL PROTEIN 5.5 g/dL (6.4-8.2)
[2019-08-21 08:00] VITALS: BP 115/46
[2019-08-21 13:55] VITALS: BP 144/55
[2019-08-21 20:00] VITALS: BP 131/52
[2019-08-22 04:35] LABS: CALCIUM 8.3 mg/dL (8.5-10.1); CREATININE 0.9 mg/dL (0.6-1.3); MAGNESIUM 1.8 mg/dL (1.8-2.4)
[2019-08-22 08:10] VITALS: BP 119/53
[2019-08-22 15:46] VITALS: BP 111/48
[2019-08-22 22:10] VITALS: BP 123/49
[2019-08-23 08:00] VITALS: BP 120/52
[2019-08-23] MEDS ORDERED: DOK PLUS TABLE1 EACH PO (13:39)
[2019-08-23] MEDS ORDERED: SERTRALINE HCL50 MG PO (13:39)
[2019-08-23] MEDS ORDERED: REMERON15 MG PO (13:39)
[2019-08-23] MEDS ORDERED: MIRALAX17 GM PO (13:39)
[2019-08-23 15:21] VITALS: BP 120/52
[2019-08-23 15:45] VITALS: BP 122/47
== END 2019-08-23 16:05 | DRG 391 ==
LOC: M.ERS 22:03 → M.3W 08-20 01:26 → M.TBA-ER 08-20 01:26 → M.2W 08-20 01:26 → M.3W 08-21 16:20
PROVIDERS: Family Medicine; ADMIT Internal Medicine
DX: K59.00 Constipation, unspecified (principal); E41 Nutritional marasmus; I50.42 Chronic combined systolic (congestive) and diastolic (congestive) heart failure; I13.0 Hypertensive heart and chronic kidney disease with heart failure and stage 1 through stage 4 chronic kidney disease, or unspecified chronic kidney disease; E44.0 Moderate protein-calorie malnutrition; R15.9 Full incontinence of feces; F32.9 Major depressive disorder, single episode, unspecified; K21.9 Gastro-esophageal reflux disease without esophagitis; E03.9 Hypothyroidism, unspecified; K58.9 Irritable bowel syndrome, unspecified; J44.9 Chronic obstructive pulmonary disease, unspecified; I73.9 Peripheral vascular disease, unspecified; N18.3 Chronic kidney disease, stage 3 (moderate); Z68.20 Body mass index [BMI] 20.0-20.9, adult; Z79.1 Long term (current) use of non-steroidal anti-inflammatories (NSAID); Z79.899 Other long term (current) drug therapy; Z88.5 Allergy status to narcotic agent; Z88.8 Allergy status to other drugs, medicaments and biological substances; Z82.49 Family history of ischemic heart disease and other diseases of the circulatory system; Z87.891 Personal history of nicotine dependence

== ENCOUNTER 2019-11-22 21:42 | Inpatient (IN) | payer MEDICARE, OTHER ==
[~2019-11-22] VITALS: Ht 139.7 cm; Wt 46.7 kg
[~2019-11-22 21:42] MED LIST changes: +DOK PLUS TABLE1 EACH PO; +MIRALAX17 GM PO; +SERTRALINE HCL50 MG PO
[2019-11-22 21:50] VITALS: BP 88/48
[2019-11-22] MEDS ORDERED: TIROSINT175 MCG PO (21:58)
[2019-11-22 22:32] LABS: ABSOLUTE BASOPHILS 0.1 thou/uL (0.0-0.2); ABSOLUTE LYMPHOCYTES 1.1 thou/uL (0.8-5.3); ABSOLUTE MONOCYTES 1.5 thou/uL (0.0-1.2); ABSOLUTE NEUTROPHILS 12.6 thou/uL (1.6-8.1); BASOPHILS 0.4 %; HEMATOCRIT 35.4 % (37.0-47.0); HEMOGLOBIN 11.6 gm/dL (12.0-15.0); LYMPHOCYTES 7.3 %; MCHC 32.8 g/dL (28.0-37.0); MCV 94.7 fL (80.0-100.0); MONOCYTES 9.5 %; MPV 7.4 fl. (7.2-11.1); NUCLEATED RBCS 0 /100WBC; PLATELET COUNT* 291 thou/uL (150-400); POLYS 82.8 %; RBC 3.74 mil/uL (4.20-5.00); RDW-CV 13.4 % (10.5-14.5); WBC 15.3 thou/uL (4.0-11.0)
[2019-11-22 22:39] LABS: CALCIUM 9.1 mg/dL (8.5-10.1); CREATININE 1.3 mg/dL (0.6-1.3); POTASSIUM 4.8 mmol/L (3.5-5.1)
[2019-11-22 22:43] LABS: ALBUMIN 3.1 g/dL (3.4-5.0); TOTAL BILIRUBIN 0.4 mg/dL (<0.1-1.0); TOTAL PROTEIN 7.3 g/dL (6.4-8.2)
[2019-11-22 23:50] LABS: URINE BILIRUBIN NEGATIVE (Negative); URINE BLOOD TRACE (Negative); URINE CLARITY CLEAR; URINE COLOR YELLOW; URINE GLUCOSE-RANDOM NEGATIVE (Negative); URINE KETONES NEGATIVE (Negative); URINE LEUKOCYTES-REFLEX 1+ (Negative); URINE NITRITE-REFLEX NEGATIVE (Negative); URINE PROTEIN TRACE (Negative); URINE UROBILINOGEN 0.2 E.U./dl (0.2-1.0)
[2019-11-23] VITALS (7 sets, daily range): BP systolic 118–176; BP diastolic 48–77
[2019-11-23 01:21] LABS: CASTS None Seen /LPF (None Seen); SQUAMOUS 0-3 Few /LPF (0-3)
[2019-11-23 01:22] LABS: URINE WBC-REFLEX >25 Many /HPF (0-5)
[2019-11-23 01:23] LABS: BACTERIA-REFLEX >30 Many /HPF (None Seen); CRYSTALS None Seen /LPF (None Seen); URINE RBC 0-2 Rare /HPF (0-2)
[2019-11-23] MEDS ORDERED: LIPITOR 20 MG T20 M1 PO (02:57)
[2019-11-23] MEDS ORDERED: TRAMADOL100 MG PO (02:59)
--- NOTE | 2019-11-23 07:25 | NUR ---
RECEIVED REPORT FROM ED RN. PT TRANSFERRED TO 215. PT A&OX4. VSS. ADMISSION HISTORY & PHYSICAL ASSESSMENT COMPLETED AND CHARTED. PT ON RA. PT TRACING ST ON TELE. PT UP WITH 1 ASSIST TO BSC. PT ORIENTED TO ROOM & CALL LIGHT. PT COMPLAINED OF BACK, HIP, LLQ ABDOMINAL PAIN & NAUSEA- DR ACOSTA MADE AWARE WITH NEW ORDERS. PT ABLE TO SLEEP WELL ON BED. CALL LIGHT WITHIN REACH.
--- NOTE | 2019-11-23 13:49 | EKG ---
[place] [address] ELECTROCARDIOGRAM REPORT Name: YONATHAN MENDEZ Room: [address] ADM IN .R.#: [id number] Admission: 11/23/19 Attend Phys: Kayli Velásquez MD Discharge: Date of : 34 Report #: [id number] THIS REPORT FOR: //name// [facility] ED Test Date: 2019-11-22 Test Time: 22:18:49 Pat Name: YONATHAN MENDEZ Department: Room: [facility] Gender: F Director Of Promotions: : 1935 Requested By: Kehinde Deutsch Order Number: [id number] MD: Joseph Edmondson Measurements Intervals [place] Rate: 97 P: -57 NM: 187 QRS: -58 QRSD: 128 T: 113 QT: 377 QTc: 479 Interpretive Statements Sinus or ectopic atrial rhythm Left bundle branch block left axis Baseline wander in lead(s) II Compared to ECG 08/20/2019 00:09:49 Ectopic atrial rhythm now present Electronically Signed On 11-23-2019 13:49:14 DIE MOUNTER by Joseph Edmondson [email or web address] <ELECTRONICALLY SIGNED> By: Joseph Edmondson MD, FAC 11/23/19 1349 2218 2218 Joseph Edmondson MD, [facility] /EPI
[2019-11-24] VITALS: BP 147/61
[2019-11-24 03:57] VITALS: BP 132/60
[2019-11-24 05:15] LABS: ABSOLUTE LYMPHOCYTES 1.4 thou/uL (0.8-5.3); ABSOLUTE MONOCYTES 1.7 thou/uL (0.0-1.2); ABSOLUTE NEUTROPHILS 11.1 thou/uL (1.6-8.1); BASOPHILS 0.2 %; EOSINOPHILS 0.2 %; HEMATOCRIT 28.1 % (37.0-47.0); LYMPHOCYTES 9.7 %; MCHC 32.7 g/dL (28.0-37.0); MONOCYTES 12.2 %; MPV 7.8 fl. (7.2-11.1); NUCLEATED RBCS 0 /100WBC; PLATELET COUNT* 231 thou/uL (150-400); POLYS 77.7 %; RBC 2.95 mil/uL (4.20-5.00); RDW-CV 13.6 % (10.5-14.5); WBC 14.3 thou/uL (4.0-11.0)
[2019-11-24 05:29] LABS: HEMOGLOBIN 9.2 gm/dL (12.0-15.0)
--- NOTE | 2019-11-24 05:33 | NUR ---
ASSUMED CARE OF PT AFTER REPORT AT 1930. PT A&OX4. VSS. PHYSICAL ASSESSMENT COMPLETED AND CHARTED. PT ON RA. PT TRACING SR/BBB ON TELE. PT UP WITH 1 ASSIST TO BSC. PT COMPLAINED OF BACK PAIN-MEDS GIVEN PER MAR. PT ABLE TO SLEEP WELL ON BED. FALL PRECAUTIONS IN PLACE. CALL LIGHT WITHIN REACH.
[2019-11-24 05:45] LABS: CALCIUM 7.8 mg/dL (8.5-10.1); CREATININE 0.9 mg/dL (0.6-1.3); POTASSIUM 3.9 mmol/L (3.5-5.1)
[2019-11-24 08:00] VITALS: BP 141/58
--- NOTE | 2019-11-24 14:40 | NUR ---
Pt is A&O. Resides at home alone. Pt states that she has been doing good at home. Supportive dtrs that check on her daily. Pt independent, dtrs provide transportation. Pt states that she has a walker and cane, but do not currently use either. Hx of [facility]. Hx of skilled at [facility]. Pt's goal is to return [place] with HH, Pt wants to use [facility]. Following.
[2019-11-24 16:43] VITALS: BP 126/50
--- NOTE | 2019-11-24 19:44 | NUR ---
assumed pt care at 729, full assesment done as charted. pt a/o x4, chipewwa, pleasant. c/o back pain, meds given per jan. pt calls approprialty for needs. up to chair for meals, slightly weak, appitite fair. report given to Digna DIXON
[2019-11-24 21:54] VITALS: BP 126/57
[2019-11-25] VITALS: BP 135/57
[2019-11-25 05:16] LABS: HEMATOCRIT 28.4 % (37.0-47.0); HEMOGLOBIN 9.5 gm/dL (12.0-15.0); MCH 31.6 pg (26.0-34.0); MCHC 33.6 g/dL (28.0-37.0); MPV 7.3 fl. (7.2-11.1); RBC 3.02 mil/uL (4.20-5.00); RDW-CV 13.4 % (10.5-14.5); WBC 8.6 thou/uL (4.0-11.0)
[2019-11-25 05:25] LABS: CALCIUM 8.1 mg/dL (8.5-10.1); CREATININE 0.8 mg/dL (0.6-1.3); MAGNESIUM 1.7 mg/dL (1.8-2.4); POTASSIUM 3.5 mmol/L (3.5-5.1)
--- NOTE | 2019-11-25 05:57 | NUR ---
ASSUMED CARE OF PATIENT AT APPROX 1930. ALERT AND ORIENTED X4. ASSESSMENT COMPLETED AND CHARTED. VSS ON ROOM AIR. NO COMPLAINTS THIS SHIFT. PATIENT SLET THROUGHOUT THE NIGHT. FALL PRECAUTIONS IN PLACE. CALL LIGHT WITHIN REACH. HOURLY ROUNDS COMPLETED. WILL CONTINUE WITH PLAN OF CARE.
[2019-11-25 08:00] VITALS: BP 123/48
[2019-11-25] MEDS ORDERED: MACROBID 100 M100 MG PO (09:25)
[2019-11-25 10:08] VITALS: BP 135/57
--- NOTE | 2019-11-25 10:09 | NUR ---
Pt discharging to home today, faxed HH orders to [facility]
[2019-11-25 16:21] VITALS: BP 135/57
--- NOTE | 2019-11-25 17:00 | NUR ---
ASSUMED PT CARE AT 0700, PT A&O X4, UP WITH STANDBY ASSIST, FULL ASSESSMENT CHARTED. PT WAS DISCHARGED HOME AT APPROX 1650, EDUCATED ON ALL DISCHARGE INSTRUCTIONS INCLUDING MEDICATIONS AND FOLLOW UP APPOINTMENTS. IV REMOVED, HOURLY ROUNDING COMPLETED.
== END 2019-11-25 14:50 | disposition home health service (06) | DRG 690 ==
LOC: M.ERS 21:42 → M.2W 11-23 00:11 → M.TBA-ER 11-23 00:11 → M.2W 11-23 02:20
PROVIDERS: Family Medicine; Physician Assistant; ADMIT Internal Medicine
DX: N39.0 Urinary tract infection, site not specified (principal); R65.10 Systemic inflammatory response syndrome (SIRS) of non-infectious origin without acute organ dysfunction; I50.42 Chronic combined systolic (congestive) and diastolic (congestive) heart failure; E46 Unspecified protein-calorie malnutrition; I13.0 Hypertensive heart and chronic kidney disease with heart failure and stage 1 through stage 4 chronic kidney disease, or unspecified chronic kidney disease; M81.0 Age-related osteoporosis without current pathological fracture; J44.9 Chronic obstructive pulmonary disease, unspecified; N18.3 Chronic kidney disease, stage 3 (moderate); E03.9 Hypothyroidism, unspecified; K59.09 Other constipation; M54.5 Low back pain; G89.29 Other chronic pain; K21.9 Gastro-esophageal reflux disease without esophagitis; F32.9 Major depressive disorder, single episode, unspecified; K58.9 Irritable bowel syndrome, unspecified; I73.9 Peripheral vascular disease, unspecified; Z95.820 Peripheral vascular angioplasty status with implants and grafts; Z93.3 Colostomy status; Z93.2 Ileostomy status; Z88.6 Allergy status to analgesic agent; Z88.8 Allergy status to other drugs, medicaments and biological substances; Z87.891 Personal history of nicotine dependence; Z82.49 Family history of ischemic heart disease and other diseases of the circulatory system; Z68.23 Body mass index [BMI] 23.0-23.9, adult; Z79.899 Other long term (current) drug therapy

== ENCOUNTER 2019-12-01 13:00 | Emergency (ER) | payer MEDICARE, OTHER ==
[~2019-12-01] VITALS: Ht 139.7 cm; Wt 37.6 kg
[~2019-12-01 13:00] MED LIST changes: +MACROBID 100 M100 MG PO; +TIROSINT175 MCG PO; +TRAMADOL100 MG PO
[2019-12-01 14:34] LABS: ABSOLUTE BASOPHILS 0.1 thou/uL (0.0-0.2); ABSOLUTE EOSINOPHILS 0.1 thou/uL (0.0-0.7); ABSOLUTE LYMPHOCYTES 1.5 thou/uL (0.8-5.3); ABSOLUTE MONOCYTES 0.5 thou/uL (0.0-1.2); ABSOLUTE NEUTROPHILS 4.7 thou/uL (1.6-8.1); BASOPHILS 1.2 %; HEMATOCRIT 33.1 % (37.0-47.0); HEMOGLOBIN 10.6 gm/dL (12.0-15.0); LYMPHOCYTES 21.4 %; MCH 30.2 pg (26.0-34.0); MCHC 32.1 g/dL (28.0-37.0); MCV 93.8 fL (80.0-100.0); MPV 6.9 fl. (7.2-11.1); NUCLEATED RBCS 0 /100WBC; PLATELET COUNT* 534 thou/uL (150-400); POLYS 68.4 %; RBC 3.52 mil/uL (4.20-5.00); RDW-CV 13.8 % (10.5-14.5); WBC 6.9 thou/uL (4.0-11.0)
[2019-12-01 14:36] LABS: CALCIUM 9.3 mg/dL (8.5-10.1); CREATININE 0.9 mg/dL (0.6-1.3); POTASSIUM 4.5 mmol/L (3.5-5.1)
[2019-12-01 14:40] LABS: ALBUMIN 2.8 g/dL (3.4-5.0); TOTAL BILIRUBIN 0.2 mg/dL (<0.1-1.0); TOTAL PROTEIN 6.4 g/dL (6.4-8.2)
[2019-12-01 14:58] LABS: URINE BILIRUBIN NEGATIVE (Negative); URINE BLOOD NEGATIVE (Negative); URINE CLARITY CLEAR; URINE COLOR YELLOW; URINE GLUCOSE-RANDOM NEGATIVE (Negative); URINE KETONES NEGATIVE (Negative); URINE LEUKOCYTES-REFLEX NEGATIVE (Negative); URINE NITRITE-REFLEX NEGATIVE (Negative); URINE PROTEIN NEGATIVE (Negative); URINE UROBILINOGEN 0.2 E.U./dl (0.2-1.0)
[2019-12-01] MEDS ORDERED: OXYCODONE HCL 55 MG PO (17:23)
[2019-12-01 17:36] VITALS: BP 121/41
== END 2019-12-01 18:03 | disposition home or self-care (01) ==
LOC: M.ERS 13:00
PROVIDERS: Personal Emergency Response Attendant
DX: S32.020A Wedge compression fracture of second lumbar vertebra, initial encounter for closed fracture (principal); S32.030A Wedge compression fracture of third lumbar vertebra, initial encounter for closed fracture; G89.29 Other chronic pain; E03.9 Hypothyroidism, unspecified; J44.9 Chronic obstructive pulmonary disease, unspecified; I13.0 Hypertensive heart and chronic kidney disease with heart failure and stage 1 through stage 4 chronic kidney disease, or unspecified chronic kidney disease; N18.3 Chronic kidney disease, stage 3 (moderate); I50.42 Chronic combined systolic (congestive) and diastolic (congestive) heart failure; Z95.5 Presence of coronary angioplasty implant and graft; Z88.5 Allergy status to narcotic agent; Z88.8 Allergy status to other drugs, medicaments and biological substances; Z87.891 Personal history of nicotine dependence; X58.XXXA Exposure to other specified factors, initial encounter; Y93.89 Activity, other specified; Y92.89 Other specified places as the place of occurrence of the external cause; Y99.8 Other external cause status

== ENCOUNTER 2019-12-03 16:54 | Inpatient (IN) | payer MEDICARE, OTHER ==
[~2019-12-03] VITALS: Ht 139.7 cm; Wt 37.6 kg
[~2019-12-03 16:54] MED LIST changes: +OXYCODONE HCL 55 MG PO
[2019-12-03 16:58] VITALS: BP 157/56
[2019-12-03 19:01] LABS: URINE BILIRUBIN NEGATIVE (Negative); URINE BLOOD NEGATIVE (Negative); URINE CLARITY CLEAR; URINE COLOR YELLOW; URINE GLUCOSE-RANDOM NEGATIVE (Negative); URINE KETONES NEGATIVE (Negative); URINE LEUKOCYTES NEGATIVE (Negative); URINE NITRITE NEGATIVE (Negative); URINE PROTEIN NEGATIVE (Negative); URINE UROBILINOGEN 0.2 E.U./dl (0.2-1.0)
[2019-12-03 19:20] LABS: ABSOLUTE BASOPHILS 0.1 thou/uL (0.0-0.2); ABSOLUTE EOSINOPHILS 0.1 thou/uL (0.0-0.7); ABSOLUTE LYMPHOCYTES 1.7 thou/uL (0.8-5.3); ABSOLUTE MONOCYTES 0.6 thou/uL (0.0-1.2); ABSOLUTE NEUTROPHILS 3.9 thou/uL (1.6-8.1); BASOPHILS 1.1 %; EOSINOPHILS 1.6 %; HEMATOCRIT 32.5 % (37.0-47.0); HEMOGLOBIN 10.5 gm/dL (12.0-15.0); LYMPHOCYTES 26.2 %; MCH 31.1 pg (26.0-34.0); MCHC 32.2 g/dL (28.0-37.0); MCV 96.3 fL (80.0-100.0); MONOCYTES 8.8 %; MPV 7.2 fl. (7.2-11.1); NUCLEATED RBCS 0 /100WBC; PLATELET COUNT* 401 thou/uL (150-400); POLYS 62.3 %; RBC 3.38 mil/uL (4.20-5.00); RDW-CV 13.9 % (10.5-14.5); WBC 6.3 thou/uL (4.0-11.0)
[2019-12-03 19:32] LABS: CALCIUM 8.4 mg/dL (8.5-10.1); CREATININE 0.9 mg/dL (0.6-1.3); POTASSIUM 4.4 mmol/L (3.5-5.1)
[2019-12-03 19:35] LABS: ALBUMIN 2.7 g/dL (3.4-5.0); TOTAL BILIRUBIN 0.2 mg/dL (<0.1-1.0); TOTAL PROTEIN 6.1 g/dL (6.4-8.2)
[2019-12-03 20:08] VITALS: BP 120/36
[2019-12-03 20:15] VITALS: BP 163/55
[2019-12-04 07:50] VITALS: BP 122/40
[2019-12-04 18:03] VITALS: BP 99/38
--- NOTE | 2019-12-04 18:56 | NUR ---
PATIENT RESTING IN BED. PATIENT HAS REFUSED TO GET OUT OF BED TODAY. PATIENT REFUSED THERAPY. PATIENT HAS HAD COMPLIANTS OF BACK PAIN WITH SOME RELIEF WITH MEDICATION. PATIENT USES BADPAN. PATIENT HAS GOOD APPETITE. PATIENT DENIES ANY NEEDS AT THIS TIME. CALL LIGHT WITHIN REACH.
[2019-12-04 19:50] VITALS: BP 102/41
[2019-12-05 06:13] LABS: HEMATOCRIT 30.5 % (37.0-47.0); HEMOGLOBIN 10.2 gm/dL (12.0-15.0); MCH 31.2 pg (26.0-34.0); MCHC 33.3 g/dL (28.0-37.0); MCV 93.7 fL (80.0-100.0); MPV 6.9 fl. (7.2-11.1); RBC 3.25 mil/uL (4.20-5.00); RDW-CV 14.1 % (10.5-14.5); WBC 10.2 thou/uL (4.0-11.0)
[2019-12-05 06:30] LABS: ALBUMIN 2.5 g/dL (3.4-5.0); CALCIUM 8.2 mg/dL (8.5-10.1); MAGNESIUM 1.7 mg/dL (1.8-2.4); POTASSIUM 4.2 mmol/L (3.5-5.1); TOTAL BILIRUBIN 0.2 mg/dL (<0.1-1.0); TOTAL PROTEIN 5.8 g/dL (6.4-8.2)
[2019-12-05 08:05] VITALS: BP 122/46
[2019-12-05 16:00] VITALS: BP 108/40
--- NOTE | 2019-12-05 16:52 | NUR ---
PATIENT RESTING IN BED. PATIENT IS UP WITH MINIMAL ASSIST. PATIENT WORKED WITH PHYICAL THERAPY THIS AM. PATIENT HAS COMPLAINTS OF 10/10 BACK PAIN WHILE UP. PAIN MEDICATION PROVEDES PARTIAL RELIEF. HEAT PAD IN USE WELL. PATIENT HAS GOOD APPETITE. PATIENT DENIES ANY NEEDS AT THIS TIME. CALL LIGHT WITHIN REACH.
[2019-12-05 19:40] VITALS: BP 116/44
[2019-12-06 04:56] LABS: HEMATOCRIT 31.4 % (37.0-47.0); HEMOGLOBIN 10.2 gm/dL (12.0-15.0); MCH 30.5 pg (26.0-34.0); MCHC 32.4 g/dL (28.0-37.0); RBC 3.35 mil/uL (4.20-5.00); RDW-CV 14.3 % (10.5-14.5); WBC 7.3 thou/uL (4.0-11.0)
[2019-12-06 05:17] LABS: CALCIUM 8.1 mg/dL (8.5-10.1); CREATININE 1.1 mg/dL (0.6-1.3); MAGNESIUM 1.7 mg/dL (1.8-2.4)
--- NOTE | 2019-12-06 10:47 | NUR ---
SW met with pt to complete initial assessment, introduce self, and SW role. Pt lives at home alone with supportive dtrs. Pt [facility] with [facility] and hx of SNF at [facility]. Pt open to inpt rehab at dc if needed. SW to continue to follow to assist with safe dc planning.
--- NOTE | 2019-12-06 16:25 | NUR ---
ASSESSMENT COMPLETE. PT ALERT AND ORIENTED X4. PT HAD MRI THIS MORNING, SHOWED L2 FX WITH HAVE KYPHOPLASTY IN AM AT 0900. PT NPO AFTER MIDNIGHT. PT GIVEN SCHEDULED PAIN MEDICATION AND HEATING PAD IN PLACE. VSS. SEE ASSESSMENT AND VITALS FOR OTHER DETAILS. CALL LIGHT WITHIN REACH, WILL CONTINUE PLAN OF CARE
[2019-12-06 16:59] VITALS: BP 121/44
--- NOTE | 2019-12-06 17:13 | NUR ---
I have reviewed the documentation by CHRISTINA PAYTON from 12/06/19 to 12/06/19 and I concur with it. SOLITARIO MAR
[2019-12-06 20:00] VITALS: BP 123/58
--- NOTE | 2019-12-07 06:01 | NUR ---
NO CHANGE IN ASSESSMENT, SEE COMPUTERIZED ASSESSMENT DOCUMENTATION FOR FURTHER DETAILS, RESTING QUIELTY WITH EYES CLOSED OFF AND ON DURING NOC, OXYCODONE 5MG PO GIVEN X1 PRN FOR BACK PAIN, SCHEDULED TYLENOL AND ULTRAM ALONG WITH OXYCODNE SOMEWHAT HELPFUL FOR PAIN MANGEMENT PER PT VERBALIZATION ALONG WITH KPAD, NPO AFTER MIDNIGHT EXCEPT FOR SIPS H20 WITH MEDICATIONS FOR AM KYPHOPLASTY PROCEURE, AWAKE, ALERT, AND CONVERSATIVE AT THIS TIME, USING BEDPAN TO VOID, REMAINS BEDREST THIS SHIFT, MOVEMENT CAUSES INTOLERABLE BACK PAIN. USING CALL LIGHT FOR NEEDS, BED ALARM REMAINS IN REACH, SAFETY MAINTAINED.
[2019-12-07 06:25] LABS: APTT 31.6 Seconds (25.0-31.3); INR 1.1; PROTIME 11.4 Seconds (9.20-11.50)
[2019-12-07 07:06] VITALS: BP 123/58
[2019-12-07 07:30] VITALS: BP 132/63
--- NOTE | 2019-12-07 15:56 | NUR ---
ASSESSMENT COMPLETE. PT ALERT AND ORIENTED X4. PT HAD KYPHOPLASTY DONE THIS MORNING, DRESSING C/D/I. PT STILL BEDREST PER PATIENT CHOICE. PT USES BEDPAN NEEDED. PAIN MEDICATION SCHEDULED. LIDOCAINE PATCH IN PLACE. PT IS ON ROOM AIR, VSS. IV RIGHT WRIST, SL. PT HAS NO OTHER CONCERNS AT THIS TIME. TOLERATING MEALS, DENIES N/V. SEE ASSESSMENT AND VITALS FOR OTHER DETAILS. CALL LIGHT WITHIN REACH, WILL CONTINUE PLAN OF CARE
[2019-12-07 17:20] VITALS: BP 108/55
--- NOTE | 2019-12-08 06:26 | NUR ---
PROGRESSING TOWARDS GOALS, STATES BACK PAIN IMPROVING POST KYPHOPLASTY PROCEDURE, ENCOURAGED OOB TO BR AND UP IN CHAIR WITH MEALS TO INCREASE ACTIVITY AND STRENGHT, PT VERBALIZED UNDERSTANDING, UP TO BR WITH X1 MIN ASSIST AND USE OF WALKER TO BR, OXYCODONE 5MG PO X1 PRN PER REQUEST AND C/O BACK PAIN, OXYCODONE EFFECTIVE FOR PAIN MANAGEMENT ALONG WITH SCHEDULED TYLENOL, SCHEDULED TRAMADOL AND LIDODERM PATCH, USING CALL LIGHT FOR NEEDS, SAFETY MAINTAINED.
[2019-12-08 07:40] VITALS: BP 122/48
--- NOTE | 2019-12-08 13:17 | NUR ---
I have reviewed the documentation by CHRISTINA PAYTON from 12/08/19 to 12/08/19 and I concur with it. SOLITARIO MAR
[2019-12-08 16:22] VITALS: BP 128/50
--- NOTE | 2019-12-08 17:13 | NUR ---
PATIENT RESTING IN BED. PATIENT IS UP WITH STANDBY ASSIST WITH WALKER. PATIENT WORKED WITH THERAPY TODAY. PATIENT HAS CONTINUED TO HAVE COMPLAINTS OF BACK PAIN, TREATED ADEQUATELY WITH MEDICATION. PATIENT DENIES ANY NEEDS AT THIS TIME. CALL LIGHT WITHIN REACH.
[2019-12-09 03:35] VITALS: BP 123/47
--- NOTE | 2019-12-09 06:25 | NUR ---
PATIENT SLEPT WELL DURING THIS SHIFT. PT USES CALL LIGHT APPROPRIATELY FOR ASSISTANCE TO BATHROOM. PT IS UP WITH WALKER TO BATHROOM. PT ON SCHEDULED PAIN MEDICATION; C/O BACK PAIN. PT WITH K-PAD TO BACK. PT DENIES NEEDS AT THIS TIME. FREQUENTLY USED ITEMS WITHIN REACH. SIDERAILS UPX2. WILL CONTINUE TO MONITOR.
[2019-12-09 08:35] VITALS: BP 133/58
[2019-12-09] MEDS ORDERED: TRAMADOL100 MG PO (10:37)
[2019-12-09] MEDS ORDERED: TYLENOL ARTHRI650 MG PO (10:37)
[2019-12-09] MEDS ORDERED: OXYCODONE HCL 55 MG PO (10:37)
[2019-12-09] MEDS ORDERED: REMERON15 M2 PO (10:52)
--- NOTE | 2019-12-09 10:54 | NUR ---
FAXED REFERRAL TO [facility]. [phone]; [phone]; KHADIJAH/INTAKE [phone]. LEFT VM MESSAGE WITH KHADIJAH/MADELYN THAT PATIENT IS TO DC TODAY. DCP TO FOLLOW.
--- NOTE | 2019-12-09 13:49 | NUR ---
CONFIRMED WITH KHADIJAH/MADELYN AT [facility] [phone]; [phone] THAT THEY CAN ACCEPT PATIENT TODAY AND HAVE [facility] ARRANGED AT 5:30 PM THIS EVENING, 12/09/19.
--- NOTE | 2019-12-09 15:59 | NUR ---
Pt to dc to [facility] today, VICKY spoke with pt and pt dtr who are in agreement with plan and they are aware of transport at 5:30 pm. VICKY faxed dc orders to admissions at [facility]. Pt nurse aware and chart copied for continuation of care. [facility] ph [phone]
[2019-12-09 17:03] VITALS: BP 133/58
[2019-12-09 17:09] VITALS: BP 112/43
--- NOTE | 2019-12-09 18:04 | NUR ---
PATIENT DISCHARGED TO [facility]. COPY OF CHART AND DISCHARGE ORDERS WITH PRESCRIPTIONS SENT WITH TRANSPORTER. REPORT CALLED TO JATIN. PATIENT ASSISTED WITH GETTING DRESSED. IV REMOVED. DAUGHTER PACKED BELONGINGS. PATIENT DENIES ANY FURTHER NEEDS. PATIENT TAKEN BY WHEELCHAIR VAN AT THIS TIME.
== END 2019-12-09 18:00 | DRG 516 ==
LOC: M.ERS 16:54 → M.TBA-ER 18:52 → M.3W 18:52
PROVIDERS: Emergency Medicine; ADMIT Internal Medicine
PROC: 0QS03ZZ Reposition Lumbar Vertebra, Percutaneous Approach (ICD-10-PCS; principal; 2019-12-07)
PROC: 0QU03JZ Supplement Lumbar Vertebra with Synthetic Substitute, Percutaneous Approach (ICD-10-PCS; principal; 2019-12-07)
DX: M80.88XA Other osteoporosis with current pathological fracture, vertebra(e), initial encounter for fracture (principal); E44.1 Mild protein-calorie malnutrition; I50.42 Chronic combined systolic (congestive) and diastolic (congestive) heart failure; I13.0 Hypertensive heart and chronic kidney disease with heart failure and stage 1 through stage 4 chronic kidney disease, or unspecified chronic kidney disease; Z68.1 Body mass index [BMI] 19.9 or less, adult; G89.29 Other chronic pain; M54.5 Low back pain; N18.3 Chronic kidney disease, stage 3 (moderate); J44.9 Chronic obstructive pulmonary disease, unspecified; E03.9 Hypothyroidism, unspecified; I73.9 Peripheral vascular disease, unspecified; Z95.820 Peripheral vascular angioplasty status with implants and grafts; Z93.3 Colostomy status; Z93.2 Ileostomy status; Z88.6 Allergy status to analgesic agent; Z88.8 Allergy status to other drugs, medicaments and biological substances; Z87.891 Personal history of nicotine dependence; Z82.49 Family history of ischemic heart disease and other diseases of the circulatory system; Z87.11 Personal history of peptic ulcer disease; Z98.1 Arthrodesis status; M85.80 Other specified disorders of bone density and structure, unspecified site; Z60.2 Problems related to living alone

== ENCOUNTER 2020-01-11 12:52 | Emergency (ER) | payer MEDICARE, OTHER ==
[~2020-01-11] VITALS: Ht 139.7 cm; Wt 38.6 kg
[~2020-01-11 12:52] MED LIST changes: +REMERON15 M2 PO; +TYLENOL ARTHRI650 MG PO
[2020-01-11] MEDS ORDERED: KLOR-CON 1010 MEQ PO (16:10)
[2020-01-11] MEDS ORDERED: PERCOCET PO (16:12)
[2020-01-11 16:27] VITALS: BP 137/53
== END 2020-01-11 16:28 | disposition home or self-care (01) ==
LOC: M.ERS 12:52
DX: S70.01XA Contusion of right hip, initial encounter (principal); S80.11XA Contusion of right lower leg, initial encounter; J44.9 Chronic obstructive pulmonary disease, unspecified; E03.9 Hypothyroidism, unspecified; I13.0 Hypertensive heart and chronic kidney disease with heart failure and stage 1 through stage 4 chronic kidney disease, or unspecified chronic kidney disease; N18.3 Chronic kidney disease, stage 3 (moderate); I50.42 Chronic combined systolic (congestive) and diastolic (congestive) heart failure; Z88.5 Allergy status to narcotic agent; Z88.8 Allergy status to other drugs, medicaments and biological substances; W01.0XXA Fall on same level from slipping, tripping and stumbling without subsequent striking against object, initial encounter; Y93.89 Activity, other specified; Y92.89 Other specified places as the place of occurrence of the external cause; Y99.8 Other external cause status

== ENCOUNTER → 2020-11-28 | Outpatient (CLI) | payer MEDICARE, OTHER ==
[~2020-11-28] MED LIST changes: +PERCOCET PO
== END ==
LOC: M.ULTRA 09:50
PROVIDERS: ATTEND Family Medicine
DX: E03.9 Hypothyroidism, unspecified (principal)

== ENCOUNTER → 2021-02-13 | Outpatient (CLI) | payer MEDICARE, OTHER | LOC: M.ULTRA 10:47 | PROVIDERS: ATTEND Nurse Practitioner Family | DX: K11.5 Sialolithiasis (principal); E07.9 Disorder of thyroid, unspecified ==

== ENCOUNTER 2021-06-29 08:53 | Emergency (ER) | payer MEDICARE, OTHER ==
[~2021-06-29] VITALS: Ht 139.7 cm; Wt 40.4 kg
[2021-06-29] MEDS ORDERED: VITAMIN D31250 MC1 PO (09:42)
[2021-06-29] MEDS ORDERED: HYDROCODON-ACE1 EAC7 PO ×2 (12:03→12:06)
[2021-06-29 12:23] VITALS: BP 144/66
== END 2021-06-29 12:23 | disposition home or self-care (01) ==
LOC: M.ERS 08:53
DX: M79.604 Pain in right leg (principal); E03.9 Hypothyroidism, unspecified; J44.9 Chronic obstructive pulmonary disease, unspecified; I13.0 Hypertensive heart and chronic kidney disease with heart failure and stage 1 through stage 4 chronic kidney disease, or unspecified chronic kidney disease; N18.30 Chronic kidney disease, stage 3 unspecified; I50.9 Heart failure, unspecified; Z79.899 Other long term (current) drug therapy; Z87.891 Personal history of nicotine dependence; Z88.8 Allergy status to other drugs, medicaments and biological substances

== ENCOUNTER → 2021-07-09 | Outpatient (CLI) | payer MEDICARE, OTHER ==
[~2021-07-09] MED LIST changes: +HYDROCODON-ACE1 EAC7 PO; +VITAMIN D31250 MC1 PO
[2021-07-09 15:06] LABS: HEMATOCRIT 39.2 % (37.0-47.0); HEMOGLOBIN 12.5 gm/dL (12.0-15.0); MCH 34.6 pg (26.0-34.0); MCV 108.1 fL (80.0-100.0); MPV 7.2 fl. (7.2-11.1); RBC 3.63 mil/uL (4.20-5.00); RDW-CV 14.4 % (10.5-14.5); WBC 6.7 thou/uL (4.0-11.0)
[2021-07-09 15:45] LABS: ALBUMIN 3.5 g/dL (3.4-5.0); CALCIUM 8.8 mg/dL (8.5-10.1); CREATININE 2.6 mg/dL (0.6-1.3); POTASSIUM 4.7 mmol/L (3.5-5.1); TOTAL BILIRUBIN 0.5 mg/dL (<0.1-1.0); TOTAL PROTEIN 6.7 g/dL (6.4-8.2)
== END ==
LOC: M.LAB 14:36
PROVIDERS: ATTEND Internal Medicine Cardiovascular Disease
DX: I42.8 Other cardiomyopathies (principal); I25.10 Atherosclerotic heart disease of native coronary artery without angina pectoris; I35.1 Nonrheumatic aortic (valve) insufficiency; I50.22 Chronic systolic (congestive) heart failure; I11.0 Hypertensive heart disease with heart failure

== ENCOUNTER 2021-07-12 00:45 | Inpatient (IN) | payer MEDICARE, OTHER ==
[~2021-07-12] VITALS: Ht 139.7 cm; Wt 42.6 kg
[2021-07-12 00:49] VITALS: BP 129/62
[2021-07-12 01:33] LABS: BE -10.3 mmol/L (-2 to +3); PCO2 26.6 mmHg (35.0-45.0); PO2 60.9 mmHg (75.0-100.0); pH 7.338 (7.340-7.450)
[2021-07-12 01:43] LABS: HEMATOCRIT 40.2 % (37.0-47.0); HEMOGLOBIN 12.8 gm/dL (12.0-15.0); MCH 34.8 pg (26.0-34.0); MCV 108.8 fL (80.0-100.0); MPV 7.3 fl. (7.2-11.1); NUCLEATED RBCS 0 /100WBC; PLATELET COUNT* 328 thou/uL (150-400); RBC 3.69 mil/uL (4.20-5.00); RDW-CV 14.2 % (10.5-14.5); WBC 4.2 thou/uL (4.0-11.0)
[2021-07-12 01:49] LABS: CALCIUM 9.4 mg/dL (8.5-10.1)
[2021-07-12 01:53] LABS: ALBUMIN 3.5 g/dL (3.4-5.0); MAGNESIUM 2.7 mg/dL (1.8-2.4); TOTAL BILIRUBIN 0.6 mg/dL (<0.1-1.0); TOTAL PROTEIN 7.2 g/dL (6.4-8.2)
[2021-07-12 02:02] LABS: URINE BLOOD NEGATIVE (Negative); URINE COLOR YELLOW; URINE GLUCOSE-RANDOM NEGATIVE (Negative); URINE KETONES NEGATIVE (Negative); URINE LEUKOCYTES-REFLEX 1+ (Negative); URINE NITRITE-REFLEX NEGATIVE (Negative); URINE PROTEIN NEGATIVE (Negative); URINE SPECIFIC GRAVITY 1.015 (1.005-1.030); URINE UROBILINOGEN 0.2 E.U./dl (0.2-1.0)
[2021-07-12 02:03] LABS: URINE BILIRUBIN 1+ (Negative)
[2021-07-12 02:04] LABS: URINE CLARITY SL CLOUDY
[2021-07-12 02:05] LABS: ICTOTEST (BILI CONFIRMATORY) Negative (Negative)
[2021-07-12 02:06] LABS: BACTERIA-REFLEX >30 Many /HPF (None Seen); CASTS None Seen /LPF (None Seen); CRYSTALS None Seen /LPF (None Seen); MUCUS 0-3 Light strn/LPF (None Seen); SQUAMOUS 0-3 Few /LPF (0-3); URINE RBC 3-10 Few /HPF (0-2); URINE WBC-REFLEX >25 Many /HPF (0-5); WBC CLUMPS Few (None Seen)
[2021-07-12 02:46] LABS: ABSOLUTE LYMPHOCYTES 0.7 thou/uL (0.8-5.3); ABSOLUTE MONOCYTES 0.3 thou/uL (0.0-1.2); ABSOLUTE NEUTROPHILS 3.3 thou/uL (1.6-8.1); ANISOCYTOSIS 1+; MACROCYTES 1+; PLATELET ESTIMATE ADEQUATE
[2021-07-12 04:48] LABS: APTT 25.4 Seconds (25.0-31.3); PROTIME 10.9 Seconds (9.20-11.50)
[2021-07-12 07:45] VITALS: BP 120/48
[2021-07-12 09:14] LABS: HEMATOCRIT 28.6 % (37.0-47.0); MCH 35.7 pg (26.0-34.0); MCHC 32.6 g/dL (28.0-37.0); MCV 109.6 fL (80.0-100.0); MPV 7.2 fl. (7.2-11.1); RBC 2.61 mil/uL (4.20-5.00); RDW-CV 14.2 % (10.5-14.5); WBC 4.4 thou/uL (4.0-11.0)
[2021-07-12 09:16] LABS: HEMOGLOBIN 9.3 gm/dL (12.0-15.0)
[2021-07-12 09:28] LABS: CALCIUM 6.8 mg/dL (8.5-10.1); CREATININE 1.2 mg/dL (0.6-1.3); POTASSIUM 3.2 mmol/L (3.5-5.1)
[2021-07-12 14:00] VITALS: BP 95/61
--- NOTE | 2021-07-12 16:17 | EKG ---
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: SHASHI : 1935 Requested By: Erika Humphries Order Number: [id number] MD: Ector Brown Measurements Intervals [place] Rate: 106 P: -50 MT: 177 QRS: -55 QRSD: 128 T: 120 QT: 342 QTc: 455 Interpretive Statements Sinus or ectopic atrial tachycardia Left bundle branch block Compared to ECG 11/22/2019 22:18:49 Heart rate has increased Electronically Signed On 07-12-2021 16:17:34 CDT by Ector Brown [email or web address] <ELECTRONICALLY SIGNED> By: Ector Brown MD, [facility] 07/12/21 1617 0055 0055 Ector Brown MD, [facility] /EPI
[2021-07-12 17:45] VITALS: BP 116/48
[2021-07-12 18:16] VITALS: BP 131/54
--- NOTE | 2021-07-12 18:43 | NUR ---
The patient arrived to 112 at 1800. Denies CP or SOB. Call light within reach. SR on the monitor. The patient is on room air. The patient has dentues top and bottom in the room. Hearing left at home. Glasses left at home. Voids using the bedpan.
--- NOTE | 2021-07-12 19:08 | NUR ---
CARE OF THIS PATIENT ASSUMED BY THIS SENIOR COUNSEL, REPORT RECEIVED FROM ANASTACIO DIXON.
--- NOTE | 2021-07-12 21:55 | NUR ---
PATIENT'S SON AJAY MENDEZ UPDATED VIA TELEPHONE
[2021-07-13 00:15] VITALS: BP 143/59
[2021-07-13 04:34] VITALS: BP 148/55
[2021-07-13 05:21] LABS: HEMATOCRIT 30.5 % (37.0-47.0); MCHC 32.8 g/dL (28.0-37.0); MCV 106.6 fL (80.0-100.0); MPV 7.3 fl. (7.2-11.1); RBC 2.86 mil/uL (4.20-5.00); RDW-CV 14.1 % (10.5-14.5); WBC 4.7 thou/uL (4.0-11.0)
[2021-07-13 06:15] LABS: CALCIUM 7.3 mg/dL (8.5-10.1); CREATININE 1.1 mg/dL (0.6-1.3); POTASSIUM 3.1 mmol/L (3.5-5.1)
[2021-07-13 08:00] VITALS: BP 135/63
[2021-07-13 08:54] LABS: MAGNESIUM 1.8 mg/dL (1.8-2.4); PHOSPHORUS* 2.1 mg/dL (2.5-4.9)
--- NOTE | 2021-07-13 11:13 | NUR ---
The patient is alert. Denies CP or SOB. SR on the monitor. Call light within reach. She is in the recliner.
[2021-07-13 12:00] VITALS: BP 135/63
--- NOTE | 2021-07-13 14:34 | EKG ---
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 : 1935 Requested By: Joel Rose Order Number: [id number] MD: Ector Brown Measurements Intervals [place] Rate: 98 P: -6 KS: 198 QRS: -48 QRSD: 131 T: 131 QT: 382 QTc: 488 Interpretive Statements Sinus rhythm Left bundle branch block Baseline wander in lead(s) V4 Compared to ECG 07/12/2021 00:55:07 No significant changes Electronically Signed On 07-13-2021 14:34:06 CDT by Ector Brown [email or web address] <ELECTRONICALLY SIGNED> By: Ector Brown MD, [facility] 07/13/21 1434 0512 0512 Ector Brown MD, [facility] /EPI
--- NOTE | 2021-07-13 15:11 | NUR ---
Pt is Covid positive. Spoke with Pt's dtr via phone. Pt resides at home alone. Kids check on Pt multiple times/day. Kids assist with IADls. Pt has a rollator and cane at home for mobility. [facility] of [facility]. Hx of skilled at [facility] and [facility]. Dtr is hopeful that Pt will be able to return home at vt with HH. Family discussing in home care providers to stay at Pt's home during the night for safety. CM texted dtr a list of in home care provider agencies. Therapy evals pending. CM discussed location of currently SNF that are accepting covid pts. Pt on 3L. Contiue Remdisivir. Dtr's work number is [phone], her cell phone is off when she is at work from 230pm-11.
[2021-07-13 17:54] VITALS: BP 132/47
[2021-07-13 20:00] VITALS: BP 151/59
[2021-07-14 00:25] VITALS: BP 123/40
[2021-07-14 04:30] VITALS: BP 139/48
--- NOTE | 2021-07-14 07:20 | NUR ---
CHANGE OF SHIFT REPORT GIVEN PATIENT SEEN AT BEDSIDE, IN BED ASLEEP ASSUMED PATIENT CARE
[2021-07-14 08:00] VITALS: BP 137/55
[2021-07-14 16:00] VITALS: BP 141/62
[2021-07-14 21:00] VITALS: BP 113/62
[2021-07-15 00:31] VITALS: BP 129/56
--- NOTE | 2021-07-15 04:02 | NUR ---
ASSUMED PT CARE AT APPROX 1930. PT IS A/OX4. VSS. PT IS TRACING SR 1D BBB ON NURSE TECHNICIAN. PT IS ON 3L NC. PT USES CALL LIGHT APPROPRIATELY. PT IS ON BEDREST R/T WEAKNESS AND USES BEDPAN. NO C/O VOICED DURING THE NOC. NO ACUTE CHANGES THIS SHIFT. HOURLY ROUNDS COMPLETE CHARTED. CALL LIGHT WITHIN REACH. FALL PRECAUTIONS IN PLACE FOR SAFETY. WILL CONT. TO MONITOR.
[2021-07-15 04:06] LABS: HEMATOCRIT 31.5 % (37.0-47.0); HEMOGLOBIN 10.4 gm/dL (12.0-15.0); MCH 35.4 pg (26.0-34.0); MCHC 33.2 g/dL (28.0-37.0); MCV 106.7 fL (80.0-100.0); MPV 7.5 fl. (7.2-11.1); RBC 2.95 mil/uL (4.20-5.00); RDW-CV 14.4 % (10.5-14.5); WBC 4.1 thou/uL (4.0-11.0)
[2021-07-15 04:15] VITALS: BP 152/66
[2021-07-15 04:26] LABS: CALCIUM 7.5 mg/dL (8.5-10.1); CREATININE 0.7 mg/dL (0.6-1.3); MAGNESIUM 1.5 mg/dL (1.8-2.4); POTASSIUM 5.3 mmol/L (3.5-5.1); TOTAL BILIRUBIN 0.3 mg/dL (<0.1-1.0); TOTAL PROTEIN 4.6 g/dL (6.4-8.2)
--- NOTE | 2021-07-15 07:10 | NUR ---
CHANGE OF SHIFT REPORT GIVEN PATIENT SEEN AT BEDSIDE IN BED ASLEEP ASSUMED PATIENT CARE
[2021-07-15 08:00] VITALS: BP 104/54
[2021-07-15 12:00] VITALS: BP 134/72
[2021-07-15 18:34] VITALS: BP 133/58
[2021-07-15 20:57] VITALS: BP 127/61
[2021-07-16] VITALS (7 sets, daily range): BP systolic 113–149; BP diastolic 47–95
[2021-07-16 05:41] LABS: ABSOLUTE LYMPHOCYTES 0.9 thou/uL (0.8-5.3); ABSOLUTE MONOCYTES 0.6 thou/uL (0.0-1.2); ABSOLUTE NEUTROPHILS 3.2 thou/uL (1.6-8.1); BASOPHILS 0.5 %; EOSINOPHILS 0.4 %; HEMATOCRIT 31.4 % (37.0-47.0); HEMOGLOBIN 10.5 gm/dL (12.0-15.0); LYMPHOCYTES 18.1 %; MCH 35.5 pg (26.0-34.0); MCHC 33.3 g/dL (28.0-37.0); MCV 106.6 fL (80.0-100.0); MONOCYTES 13.7 %; MPV 7.9 fl. (7.2-11.1); NUCLEATED RBCS 0 /100WBC; PLATELET COUNT* 283 thou/uL (150-400); POLYS 67.3 %; RBC 2.95 mil/uL (4.20-5.00); RDW-CV 14.5 % (10.5-14.5); WBC 4.7 thou/uL (4.0-11.0)
--- NOTE | 2021-07-16 06:53 | NUR ---
patient alert and pleasant. Mentioned of not getting good sleep dur to back problems. No tother concerns. Will continue to care
[2021-07-16 08:22] LABS: CALCIUM 7.7 mg/dL (8.5-10.1); CREATININE 0.7 mg/dL (0.6-1.3); POTASSIUM 4.5 mmol/L (3.5-5.1)
--- NOTE | 2021-07-16 13:23 | NUR ---
Per , Pt medically stable. CM left for Pt's dtr to discuss dispo plan. Dtr had originally informed that she would prefer home with HH since the SNFs that are accepting Covid pts are so far away. Therapies to see today to determine if Pt's mobility has improvided since the evals from 07/13. Await call back from Pt's dtr
--- NOTE | 2021-07-16 19:32 | NUR ---
PT A/OX4 LETHARGIC AND SOFT SPOKEN. PT REFUSED THERAPY AND SHE REFUSED TO GET IN HER RECLINER AFTER BEING EDUCATED ON THE IMPORTANCE OF SITTING UP IN HER CHAIR WITH COVID.
[2021-07-17 00:09] VITALS: BP 111/50
[2021-07-17 04:00] VITALS: BP 112/51
--- NOTE | 2021-07-17 04:59 | NUR ---
Pt. alert and oriented X4. Complained of rt shoulder pain and tylenol given PRN with relief. Afebrile. NSR on tele monitor. Pt. remains on 3L NC maintaining O2 sats at parameters. Pt. uses bedpan to void, unable to assess for gait during this shift. No acute changes noted. All questions and concerns addressed. Call light within reach and fall precautions in place. Will continue to monitor.
--- NOTE | 2021-07-17 14:18 | NUR ---
Pt discharging to [facility] today. Ambulance to [facility] and transport at 2pm. Faxed dc orders. Chart copied. Nurse report number is [phone]. Updated Pt's dtr
--- NOTE | 2021-07-17 14:38 | NUR ---
PT DISCHARGED AT 1400 VIA AMBULANCE TO [facility]. SHE WAS TRANSFERRED WITH HER BELONGINGS AND A SIGNED DNR. IV REMOVED AND TELE OFF.
== END 2021-07-17 14:38 | DRG 177 ==
LOC: M.ERS 00:45 → M.TBA-ER 04:26 → M.ORTHSURG 18:02
PROVIDERS: Family Medicine; Internal Medicine; Personal Emergency Response Attendant; ADMIT Internal Medicine; ATTEND Internal Medicine
PROC: XW033E5 Introduction of Remdesivir Anti-infective into Peripheral Vein, Percutaneous Approach, New Technology Group 5 (ICD-10-PCS; principal; 2021-07-12)
DX: U07.1 COVID-19 (principal); N17.0 Acute kidney failure with tubular necrosis; I50.42 Chronic combined systolic (congestive) and diastolic (congestive) heart failure; I13.0 Hypertensive heart and chronic kidney disease with heart failure and stage 1 through stage 4 chronic kidney disease, or unspecified chronic kidney disease; N39.0 Urinary tract infection, site not specified; M81.0 Age-related osteoporosis without current pathological fracture; I73.9 Peripheral vascular disease, unspecified; N18.30 Chronic kidney disease, stage 3 unspecified; J44.9 Chronic obstructive pulmonary disease, unspecified; E03.9 Hypothyroidism, unspecified; E86.0 Dehydration; R53.81 Other malaise; R31.9 Hematuria, unspecified; M54.9 Dorsalgia, unspecified; G89.29 Other chronic pain; B96.89 Other specified bacterial agents as the cause of diseases classified elsewhere; Z87.891 Personal history of nicotine dependence; Z88.8 Allergy status to other drugs, medicaments and biological substances; Z79.899 Other long term (current) drug therapy